=== PATIENT | male | born 1960 | race Caucasian/White ===

== ENCOUNTER 2024-11-14 15:58 | Outpatient (AMB) | payer OTHER, SELFPAY ==
--- NOTE | 2024-11-14 16:19 | A.OFFPC_ITS ---
Vital Signs 11/14/24 16:29 Height 6 ft Weight 201 lb BMI 27.3 BP 120/60 Blood Pressure Location Rt brachial Position Sitting Respiration 14 Pulse 90 Pulse Source Pulse Oximeter Temp 97.0 F Temp Source Oral Pulse Oximetry (%) 97 Oxygen Delivery Method Room Air Intake Visit Reasons: Med review, COPD, DM Intake Note: ESTABLISH CARE med refill Allergies No Known Allergies [No Known Allergies*] Allergy (Verified 11/14/24 16:21) Medication List - Last Reconciled 11/14/24 by Christian Ac MD aripiprazole 15 mg PO DAILY atorvastatin 80 mg PO DAILY bupropion HCl XL 150 mg PO QAM clonazepam mg PO fluoxetine 60 mg PO QAM metformin 1,000 mg PO BID pantoprazole 40 mg PO DAILY Tobacco use date assessed: 11/14/24 Dental Screening Dental Screen Date: 11/14/24 Did you have a dental visit in the last 12 months?: No Did you have a dental problem in the last 6 months where you did not have access to dental care?: No HPI Med review, COPD, DM HPI Details New?patient Prior?PCP: Dr Pappas Last?office?visit/CPE: 18 mos Acute?issue(s): Diabetes -A1c today 11/14/24 11.7%. PMHx: Anxiety. Diabetes w/ Neuropathy & paresthesias, [facility] Neuro at [facility]. Erectile , COPD SurgHx: None FHx: Mom: DM, Pancreatic CA. Dad: DM, CHF. SocHx: Smokes <1ppd. EtOH: 2 Beers a few times a week, Cocaine $600-$2000 a month habbit. PFSH Medical History Depression Anxiety Imbalance Neuropathy Acid reflux Diabetes Hypercholesteremia Family History Mother Diabetes Cancer of kidney Father Diabetes Cardiovascular disease Social History Housing: Other (mobile home) Patient Tobacco Use Status: Current everyday Tobacco user Cigarette Packs Per Day: 1 Years Smoked: 40 e-Cigarette/Vaping Use: Never Used Second Hand Smoke Exposure: No Substance Use Type: Marijuana service: Yes Current occupational status: disabled Cognitive needs: No Hearing needs: No Vision needs: Yes (glasses for close up) Questionnaire PHQ-9 Over the last 2 weeks, how often have you been bothered by any of the following problems? 1. Little interest or pleasure in doing things: several days 2. Feeling down, depressed, or hopeless: several days 3. Trouble falling or staying asleep, or sleeping too much: not at all 4. Feeling tired or having little energy: nearly every day 5. Poor appetite or overeating: not at all 6. Feeling bad about yourself - or that you are a failure or have let yourself or your family down: not at all 7. Trouble concentrating on things, such as reading the newspaper or watching television: not at all 8. Moving or speaking so slowly that other people could have noticed. Or the opposite - being so fidgety or restless that you have been moving around a lot more than usual: not at all 9. Thoughts that you would be better off or of hurting yourself in some way: not at all Total score: 5 Depression Screening Interpretation: Positive Depression Screening Done: Yes 58788 - PHQ-9 Billing: Yes Source: Developed by Drs. Jose Story, Allison Mejia, Antoine Ray and colleagues, with an educational franca from [email or web address]. Thrive Questionnaire Date Thrive assessed: 11/14/24 I am a: Patient What is your living situation today?: I have a place to live, but I am worried about losing it in the future Within the past 12 months, did the food you bought not last and you didn't have the money to get more?: Often true Within the past 12 months, did you worry whether your food would run out before you got money to buy more?: Often true Do you have trouble paying for medicines?: No Do you have trouble getting transportation to medical appointments?: Yes Do you have trouble paying your heating and electricity bill?: Yes Do you have trouble taking care of your child, family member or friend?: No Do you have trouble with day-to-day activities such as bathing, preparing meals, shopping, managing finances, etc.?: Yes Are you currently unemployed and looking for a job?: No Are you interested in more education?: No Please select the resources that you would like help with: None Currently or been in a relationship where the following occur: No concerns reported THRIVE Score: 5 AUDIT C Alcohol Use Questionnaire (AUDIT-C) 1. How often do you have a drink containing alcohol?: 2-3 times a week 2. How many drinks containing alcohol do you have on a typical day when you are drinking?: 1 or 2 3. How often do you have six or more drinks on one occasion?: Less than monthly Total Score: 4 OKSANA-7 AMB Questionnaire OKSANA-7 Date OKSANA - 7 assessed: 11/14/24 Feeling nervous, anxious, or on edge: 2 = More than half the days Not being able to stop or control worryin = Nearly every day Worrying too much about different things: 3 = Nearly every day Trouble relaxin = Several days Being so restless that it is hard to sit still: 1 = Several days Becoming easily annoyed or irritable: 0 = Not at all Feeling afraid as if something awful might happen: 3 = Nearly every day Total OKSANA-7 score (0-4 normal; 5-9 mild; 10-14 moderate; 15-21 severe): 13 Source: Developed by Drs. Jose Story, Allison Mejia, Antoine Ray and colleagues, with an educational franca from [email or web address]. OKSANA-7 Assessment Billing OKSANA-7 Assessment Tool: OKSANA-7 Assessment 59744 Review of Systems Const Denies chills, Denies fatigue, Denies fever(s), Denies headache(s) and Denies weakness ENT Denies dizziness and Denies headache(s) Card Denies chest pain, Denies lightheadedness, Denies dyspnea and Denies other (Palpitations) Resp Denies cough, Denies dyspnea, Denies wheezing and Denies other ( shortness of breath) Musc Denies numbness and Denies tingling Neuro Denies dizziness, Denies headache(s), Denies numbness, Denies tingling, Denies paresthesias and Denies weakness Psych Denies anxiety and Denies depression Endo Denies fatigue Aller/Immun Denies wheezing Physical exam (Primary Care) Vital Signs: Last Vital Signs Temp 97.0 F 11/14/24 16:29 Pulse 90 11/14/24 16:29 Resp 14 11/14/24 16:29 BP 120/60 11/14/24 16:29 Pulse Ox 97 11/14/24 16:29 Oxygen Delivery Method Room Air 11/14/24 16:29 BMI result Body Mass Index 27.3 Tobacco/Smoking Status: Tobacco use Status Tobacco use date assessed 11/14/24 11/14/24 16:33 Patient Tobacco Use Status Current everyday Tobacco 11/14/24 16:33 e-Cigarette/Vaping Use Never Used 11/14/24 16:19 PHQ-9: PHQ-9 Score PHQ-9: Total score 5 11/14/24 16:54 Depression Screening Interpretation: Positive Thrive Assessment: Date of Thrive Assessment Date Thrive assessed 11/14/24 11/14/24 16:33 Currently or been in a relationship where the following occur: No concerns repo rted Const General: no acute distress and well developed Nutritional Appearance: well nourished Orientation/consciousness: patient oriented x3 HENMT Head: Yes normocephalic and Yes atraumatic Eyes General: appearance normal, both eyes and all related structures Pupils: Equal, round and reactive pupils present EOM: EOMs intact bilaterally Resp Effort & Inspection: normal respiratory effort Auscultation: clear to auscultation bilaterally Cardio Rate: regular rate Rhythm: regular rhythm Heart sounds: S1 normal heart sound present, S2 normal heart sound present, no gallops, no murmurs and no rubs Neuro General: patient oriented x3 and gait normal Cranial nerves: Yes Equal, round and reactive pupils present Psych Affect: normal affect Results AMB Hemoglobin A1c AMB Hemoglobin A1c 11.7 % Last Edit by Marlon Miranda CMA on 11/14/24 16:51 Results Reviewed Results Reviewed: Laboratory Last Values Hgb A1c (Clinic) 11.7 % (4.0-6.0) H 11/14/24 16:50 Coding Level of Care Code New Pt Level 5 (09660) Diagnoses Hypercholesteremia E78.00 Diabetes E11.9 Depression with anxiety F41.8 Neuropathy G62.9 Smoker F17.200 COPD (chronic obstructive pulmonary disease) J44.9 Laboratory exam ordered as part of routine general medical examination Z00.00 Substance abuse F19.10 Additional Codes OKSANA-7 Assessment Billing - OKSANA-7 Assessment Tool: OKSANA-7 Assessment 13164 ([id number]) PHQ-9 - 46487 - PHQ-9 Billing: Yes ([id number]) Assessment & Plan Assessment & Plan (1) Hypercholesteremia: Code(s): E78.00 - Pure hypercholesterolemia, unspecified Category: Medical Plan: Patient?is?on?atorvastatin?80?mg?daily Check?lipid (2) Diabetes: Code(s): E11.9 - Type 2 diabetes mellitus without complications Category: Medical Plan: A1c?is?over?11.??Uncontrolled?diabetes.??Goal?is?less?than?7% He?has?not?had?medications?and?will?renew?these ?? (3) Depression with anxiety: Code(s): F41.8 - Other specified anxiety disorders Category: Medical Plan: Patient?says?he?has?a?psych?med?provider?but?has?not?been?in?touch?within?quite? some?time. Will?refill?his?medications?but?I?advi sed?him?to?contact?his?psych?med?provider?to?continue?management?after?that. Patient?understands. (4) Neuropathy: Code(s): G62.9 - Polyneuropathy, unspecified Category: Medical Plan: History?of?uncontrolled?diabetes?and Patient?notes?that?he?has?bilateral?lower?extremity numbness?and?tingling. Likely?primarily?diabetic?neuropathy?but?patient?also?has?MS Will?work?controlling?blood?sugars?to?decrease?symptoms. (5) Smoker: Code(s): F17.200 - Nicotine dependence, unspecified, uncomplicated Category: Social Hx Plan: Patient?is?smoking?just?under?a?pack?per?day. He?has?smoked?greater?than?20?pack?years Strongly?encouraged?weaning?and?cessation Will?send?for?low-dose?CT?scan (6) COPD (chronic obstructive pulmonary disease): Code(s): J44.9 - Chronic obstructive pulmonary disease, unspecified Category: Medical Plan: As?above,?strongly?encouraged?cessation?cigarettes Continue?Anoro?Ellipta (7) Laboratory exam ordered as part of routine general medical examination: Code(s): Z00.00 - Encounter for general adult medical examination without abnormal findings Category: Medical Plan: Check?labs (8) Substance abuse: Code(s): F19.10 - Other psychoactive substance abuse, uncomplicated Category: Medical Plan: Patient?notes?intermittent?cocaine?abuse. We?discussed?the?risks?of?cocaine?use?and?I?recommended?discontinuing?this.??He? said?he?is working?with?[employer]?and?I?encouraged?this Orders: Orders Complete Blood Count Auto Diff Today Z00.00 - Encounter for general adult medical examination without abnormal findings Lipid Panel Today Z00.00 - Encounter for general adult medical examination without abnormal findings TSH reflex Free T4 Today Z00.00 - Encounter for general adult medical examination without abnormal findings AMB Hemoglobin A1c Today E11.9 - Type 2 diabetes mellitus without complications Comprehensive [place]. Panel Fast Today Z00.00 - Encounter for general adult medical examination without abnormal findings Microalbumin, Random (w Creat) Today I10 - Essential (primary) hypertension Prostate Specific Antigen Scr Today Z12.5 - Encounter for screening for malignant neoplasm of prostate UA and rflx microscopic Today Z00.00 - Encounter for general adult medical examination without abnormal findings Referrals Lung Cancer Screening Referral F17.200 - Nicotine dependence, unspecified, uncomplicated Medications: New dulaglutide (Trulicity) 0.75 mg (0.5 mL) subcut QWEEK 28 days 2 mL 3RF bupropion HCl XL 150 mg PO QAM 30 days 30 tabs 0RF umeclidinium-vilanterol 62.5-25 mcg/actuation (Anoro Ellipta) 1 inh inhalation Q24H 30 days 60 ea 2RF Changed From metformin 1,000 mg PO BID To metformin 1,000 mg PO BID 90 days 180 tabs 3RF From clonazepam PO To clonazepam 0.5 mg PO DAILY 30 days 30 tabs 0RF From fluoxetine 60 mg PO QAM To fluoxetine 60 mg (3 x 20 mg) PO QAM 30 days 90 caps 0RF From atorvastatin 80 mg PO DAILY To atorvastatin 80 mg PO DAILY 90 days 90 tabs 2RF From aripiprazole 15 mg PO DAILY To aripiprazole 15 mg PO DAILY 30 days 30 tabs 0RF From pantoprazole 40 mg PO DAILY To pantoprazole 40 mg PO DAILY 30 days 30 tabs 2RF
[2024-11-14 16:29] VITALS: BP 120/60; PULSE 90; RESP 14; TEMP 36.1; O2SAT 97; BMI 27.3
--- OUTSIDE RECORDS SUMMARY | 2024-11-14 18:41 | XMS_ITS ---
Author Name [facility] Organization Unknown History of Medication Use Medication Directions Dispensed Refills Start Date End Date Status clonazePAM (KlonoPIN) 0.25 mg split tablet Take 2 split tablet (0.5 mg total) by mouth 3 (three) times a day as needed for anxiety. 4 active Trulicity 3 MG/0.5ML subcutaneous pen-injector once a week. 4 active acetaminophen (TYLENOL) tablet 975 mg 975 mg, Oral, Once, On Tue02/29/24 at 0800, For 1 doseGive 30 minutes prior to ocrelizumab. 4 completed methylPREDNISolone sodium succinate (SOLU-Medrol) injection 125 mg 125 mg, Intravenous, Once, On Tue02/29/24 at 0800, For 1 doseGive 30 minutes prior to ocrelizumab. ??Administer over 2-3 minutes 4 completed FLUoxetine (PROzac) 20 MG capsule Take 1 capsule (20 mg total) by mouth daily. 4 active Umeclidinium-Vilantero l (Anoro Ellipta) 62.5-25 MCG/INH AEPB Inhale 62 mcg into the lungs daily. 4 active ocrelizumab (OCREVUS) 600 mg in sodium chloride (NS) 0.9 % 500 mL IVPB 600 mg, Intravenous, Once, On Tue02/29/24 at 0800, For 1 doseMust use in-line 0.22 micron filter. ??- Infusion Rate for first full 600 mg dose or reaction with previous infusion: Start at 40 mL/hr. Increase by 40 mL/hr every 30 minutes. Maximum rate: 200 mL/hr. Duration: 3.5 hours or longer.??- Infusi 4 completed ARIPiprazole (ABILIFY) 2 MG tablet Take 1 tablet (2 mg total) by mouth daily. 4 active gabapentin (NEURONTIN) 300 MG capsule Take 1 capsule (300 mg total) by mouth every night at bedtime. 4 active meclizine (ANTIVERT) 12.5 MG tablet Take 1 tablet (12.5 mg total) by mouth daily as needed. 2-3 tabs daily as needed for dizziness 4 active diphenhydrAMINE (BENADRYL) injection 50 mg 50 mg, Intravenous, Once, On Tue02/29/24 at 0800, For 1 doseGive 30 minutes prior to ocrelizumab. IV push over 2-3 minutes.??See PO diphenhydramine order. Please give PO or IV.??Common Side Effects: Drowsiness, stomach upset, confusion, dry mouth.??Administer undiluted. Maximum rate 25 mg/min. 4 completed Ocrelizumab (OCREVUS IV) Inject 600 mg into the vein. 4 active atorvastatin (LIPITOR) tablet 80 mg Take 1 tablet (80 mg total) by mouth daily. 4 active aspirin 81 MG chewable tablet Chew 1 tablet (81 mg total) by mouth daily. 4 active glipiZIDE (GLUCOTROL XL) ER 24 hr tablet 5 mg Take 1 tablet (5 mg total) by mouth daily. 4 active omeprazole (PriLOSEC) 20 MG capsule Take 1 capsule (20 mg total) by mouth daily. 4 active ergocalciferol (VITAMIN D2) capsule 23470 units Take 1 capsule (50,000 Units total) by mouth once a week. 4 active metFORMIN (GLUCOPHAGE) tablet 1000 mg Take 1 tablet (1,000 mg total) by mouth 2 (two) times a day with meals. 4 active Problems Problem Status Onset Date Problem Type Date of Resoluti on Source Type 2 diabetes mellitus active 2021-03-26 ProblemAct [facility] Multiple sclerosis active 2021-03-26 ProblemAct [facility]
== END 2024-11-14 17:21 | disposition home or self-care (01) ==
PROVIDERS: PCP Family Medicine; Visit Provider Family Medicine
DX: E78.00 Pure hypercholesterolemia, unspecified (principal); E11.42 Type 2 diabetes mellitus with diabetic polyneuropathy; J44.9 Chronic obstructive pulmonary disease, unspecified; F19.10 Other psychoactive substance abuse, uncomplicated; F41.8 Other specified anxiety disorders; G62.9 Polyneuropathy, unspecified; F17.200 Nicotine dependence, unspecified, uncomplicated

== ENCOUNTER → 2024-11-14 15:58 | Outpatient (BNVA) | payer OTHER, SELFPAY | PROVIDERS: PCP Family Medicine; Visit Provider Family Medicine | DX: Z00.00 Encounter for general adult medical examination without abnormal findings (principal); J44.9 Chronic obstructive pulmonary disease, unspecified; E11.40 Type 2 diabetes mellitus with diabetic neuropathy, unspecified; F17.210 Nicotine dependence, cigarettes, uncomplicated; E78.00 Pure hypercholesterolemia, unspecified; E11.9 Type 2 diabetes mellitus without complications; F41.8 Other specified anxiety disorders; F19.10 Other psychoactive substance abuse, uncomplicated | CPT/HCPCS: 83036; 96127; 99202 ==

== ENCOUNTER 2024-11-20 10:33 | Outpatient (REF) | payer OTHER, SELFPAY ==
--- OUTSIDE RECORDS SUMMARY | 2024-11-20 11:52 | XMS_ITS | Clinical Summary ---
Author Organization [facility] Address [address] [place] [address] Phone Care Team Providers Care Otologist Name Role Phone Josesito Rodriguez MD Primary Care Provider [phone] Allergies No known active allergies Medications Medication Sig Dispensed Refills Start Date End Date Status ARIPiprazole (ABILIFY) 2 mg tablet Take 1 tablet (2 mg total) by mouth. 04/15/2021 Active aspirin 81 mg chewable tablet Chew 1 tablet (81 mg total). Active atorvastatin (LIPITOR) 80 mg tablet Take 1 tablet (80 mg total) by mouth. Active clonazePAM (KlonoPIN) 0.5 mg tablet Take 1 tablet (0.5 mg total) by mouth 3 times daily as needed. Active dulaglutide (Trulicity) 3 mg/0.5 mL pen injector injection once a week. 08/26/2021 Active ergocalciferol (VITAMIN D-2) 1,250 mcg (50,000 unit) capsule Take 1 capsule (50,000 Units total) by mouth. 07/12/2022 Active FLUoxetine (PROzac) 20 mg capsule Take 1 capsule (20 mg total) by mouth. Active gabapentin (NEURONTIN) 300 mg capsule Take 1 capsule (300 mg total) by mouth. Active glipiZIDE (GLUCOTROL XL) 5 mg 24 hr tablet Take 1 tablet (5 mg total) by mouth. Active meclizine (ANTIVERT) 12.5 mg tablet Take 1 tablet (12.5 mg total) by mouth. Active metFORMIN (GLUCOPHAGE) 1,000 mg tablet Take 1 tablet (1,000 mg total) by mouth. Active omeprazole (PriLOSEC) [address] capsule Take 1 capsule (20 mg total) by mouth. Active umeclidinium-vilantero L (Anoro Ellipta) 62.5-25 mcg/actuation inhaler Inhale 62 mcg. Active sodium chloride 0.9 % parenteral solution 500 mL with ocrelizumab 30 mg/mL solution 600 mg Infuse 600 mg into a venous catheter. Active Active Problems Problem Noted Date Diagnosed Date Multiple sclerosis 03/26/2021 Type 2 diabetes mellitus 03/26/2021 Alcohol abuse 08/15/2007 Tobacco use disorder 03/31/2006 Disturbance of skin sensation 11/30/2005 Pain in limb 11/30/2005 Anxiety state 11/25/2005 Infectious colitis, enteritis and gastroenteriti s 11/25/2005 Overview (10/12/2024): [facility] Depressive disorder 11/25/2005 Hyperlipidemia 11/25/2005 Encounters Date Type Department Care Team Description 10/11/2024 7:54 AM EST - 10/11/2024 11:59 PM EST Hospital Encounter [facility] [address] [phone] Multiple sclerosis ([facility]) (Primary Dx) Discharge Disposition: Home or Self Care 10/02/2024 Telephone [facility] [address] [phone] Mayte Otto PA OCREVUS AUTH RQST; AUTH RECVD from Last 3 Months Immunizations Name Administration Dates Next Due [employer] SARS-CoV-2 COVID -19, vector-nr, [id number], preservative free 02/02/2021 Td, Unspecified 09/01/2005 Medical History Medical History Date Comments MS (multiple sclerosis) ([facility]/HCC) DX:MS (multiple sclerosis) ([facility]) COPD (chronic obstructive pu lmonary disease) (CMS/HCC) DX:COPD (chronic obstructive pulmonary disease) (HCC) Emphysema lung (CMS/HCC) DX:Emph ysema lung (HCC) Diabetes mellitus (CMS/HCC) DX:D iabetes mellitus ([facility]) Depression DX:Depression Anxiety DX:Anxiety Depression DX:Depression Family History Medical History Relation Name Comments Diabetic kidney disease Father Heart disease Father Cancer Mother Diabetic kidney disease Mother Relation Name Status Comments Father Mother Social History Tobacco Use Types Packs/Day Years Used Date Smoking Tobacco: Every Day Cigarettes Smokeless Tobacco: Never Tobacco Cessation:Ready to Q uit: Not Asked; Counseling Given: Not Answered Sex and Gender Information Value Date Recorded Sex Assigned at Not on file Gender Identity Not on file Sexual Orientation Not on file Job Start Date Occupation Industry Not on file Not on file Not on file Obstetrics History Last Filed Vital Signs Vital Sign Reading Time Taken Comments Blood Pressure 139/83 10/11/2024 11:16 AM EST Pulse 81 10/11/2024 11:16 AM EST Temperature 36.3 ??C (97.4 ??F) 10/11/2024 1 1:16 AM EST Respiratory Rate 18 10/11/2024 11:1 6 AM EST Oxygen Saturation 97% 10/11/2024 11: 16 AM EST Inhaled Oxygen Concentration - - Weight 85.2 kg (187 lb 12.8 oz) 02/29/2024 7:49 AM EDT Height 182.9 cm (6') 02/29/2024 7:49 AM EDT Body Mass Index 25.47 02/29/2024 7:49 AM EDT Plan of Treatment Upcoming Encounters Date Type Department Care Team (Late st Contact Info) Description 12/06/2024 8:30 AM EST Office Visit [facility] [place] [address] [address] [facility] [address] [place] [phone] Hermila Quintanilla MD [address] [place] [phone] 04/11/2025 8:00 AM EDT Appointment [facility] [place] [address] [facility] [address] [place] [phone] Health Maintenance Due Date Last Done Comments Pneumococcal Vaccine: Pediatrics (0 to 5 Years) and At-Risk Patients (6 to 64 Years) (1 of 2 - PCV) 1968 Diabetes: Annual Foot Exam 1972 Diabetes: Annual Retina Eye Exam 1972 Hepatitis A Vaccines (1 of 2 - Risk 2-dose series) 1981 Zoster Vaccines (1 of 2) 2012 RSV Immunization Patients 60 + Years Old (1 - Risk 60-74 years 1-dose series) 2022 Cholesterol Screening (Lipid Panel) 10/08/2022 08/15/2007 Depression Screening 10/08/2022 HIV Screening 10/08/2022 Medicare Annual Wellness Visit 10/08/2022 Social Influencers of Health Screening 10/08/2022 Diabetes: Annual Urine Albumin-Creatinine Ratio (uACR) 10/30/2022 Diabetes: Blood Sugar Contro l Test (HGBA1C) 10/30/2022 08/15/2007 Colorectal Cancer Screening: FIT-DNA (Cologuard) 04/01/2024 04/01/2021, 04/01/2021 COVID-19 Vaccine (3 - 2023-2 5 season) 2024 09/28/2021, 02/02/2021 Influenza Vaccine (#1) 2024 Diabetes: Annual GFR (Glomerular Filtration Rate) 10/11/2025 10/11/2024, 08/15/2007 DTaP,Tdap,and Td Vaccines (3 - Td or Tdap) 03/11/2026 03/11/2016, 09/01/2005 Hepatitis C Screening Completed 10/19/2000 HIB Vaccines Aged Out No longer eligi ble based on patient's age to complete this topic HPV Vaccines Aged Out No longer eligi ble based on patient's age to complete this topic Hepatitis B Vaccines Aged Out No long er eligible based on patient's age to complete this topic IPV Vaccines Aged Out No longer eligi ble based on patient's age to complete this topic MMR Vaccines Aged Out No longer eligi ble based on patient's age to complete this topic Meningococcal ACWY Vaccine Aged Out N o longer eligible based on patient's age to complete this topic RSV Immunization Patients Under 20 months Aged Out No longer eligible b ased on patient's age to complete this topic Varicella Vaccines Aged Out No longer eligible based on patient's age to complete this topic Procedures Procedure Name Priority Date/Time Associated Diagnosis Comments CBC WITH AUTO DIFFERENTIAL Routine 10/11/2024 8:08 AM EST CBC AND DIFFERENTIAL Routine 10/11/2024 8:08 AM EST HEPATIC FUNCTION PANEL Routine 10/11/2024 8:08 AM EST CREATININE, SERUM Routine 10/11/2024 8:0 8 AM EST BUN Routine 10/11/2024 8:08 AM EST HEMOGLOBIN A1C Routine 08/15/2007 LIPID PANEL Routine 08/15/2007 HM HEPATITIS C SCREENING Routine 10/19/2000 from Last 3 Months or Most Recently Relevant to Health Maintenance Results * CBC auto differential (10/11/2024 8:08 AM EST) WBC 6.6 4.8 - 10.8 K/mcL LAB HEMETOLOGY METHOD 10/11/2024 9:53 AM [facility] RBC 4.60 4.50 - 5.50 M/mcL LAB HEMETOLOGY METHOD 10/11/2024 9:53 AM [facility] Hemoglobin 14.7 13.5 - 17.5 g/dL LAB HEMETOLOGY METHOD 10/11/2024 9:53 AM [facility] Hematocrit 43.4 42.0 - 54.0 % LAB HEMETOLOGY METHOD 10/11/2024 9:53 AM [facility] MCV 93.5 79.0 - 98.0 FL LAB HEMETOLOGY METHOD 10/11/2024 9:53 AM [facility] MCH 31.7 27.0 - 32.0 pcg LAB HEMETOLOGY METHOD 10/11/2024 9:53 AM [facility] MCHC 33.9 32.0 - 37.0 g/dL LAB HEMETOLOGY METHOD 10/11/2024 9:53 AM [facility] RDW 12.1 11.0 - 15.0 % LAB HEMETOLOGY METHOD 10/11/2024 9:53 AM [facility] Platelets 354 130 - 400 K/mcL LAB HEMETOLOGY METHOD 10/11/2024 9:53 AM [facility] MPV 9.0 7.0 - 11.0 FL LAB HEMETOLOGY METHOD 10/11/2024 9:53 AM [facility] NRBC 0.0 <1.0 % LAB HEMETOLOGY METHOD 10/11/2024 9:53 AM [facility] NRBC Absolute 0.00 <0.10 K/mcL LAB HEMETOLOGY METHOD 10/11/2024 9:53 AM [facility] Neutrophils Relative 69.9 % LAB HEMETOLOGY METHOD 10/11/2024 9:53 AM [facility] Lymphocytes Relative 20.1 % LAB HEMETOLOGY METHOD 10/11/2024 9:53 AM [facility] Monocytes Relative 6.9 % LAB HEMETOLOGY METHOD 10/11/2024 9:53 AM [facility] Eosinophils Relative 2.0 % LAB HEMETOLOGY METHOD 10/11/2024 9:53 AM [facility] Basophils Relative 0.6 % LAB HEMETOLOGY METHOD 10/11/2024 9:53 AM [facility] Immature Granulocytes Relative 0.5 % LAB HEMETOLOGY METHOD 10/11/2024 9:53 AM [facility] Neutrophils Absolute 4.59 1.50 - 7.00 K/mcL LAB HEMETOLOGY METHOD 10/11/2024 9:53 AM [facility] Lymphocytes Absolute 1.32 1.00 - 5.00 K/mcL LAB HEMETOLOGY METHOD 10/11/2024 9:53 AM [facility] Monocytes Absolute 0.45 0.20 - 1.00 K/mcL LAB HEMETOLOGY METHOD 10/11/2024 9:53 AM [facility] Eosinophils Absolute 0.13 0.00 - 0.50 K/mcL LAB HEMETOLOGY METHOD 10/11/2024 9:53 AM EST [facility] Basophils Absolute 0.04 0.00 - 0.20 K/mcL LAB HEMETOLOGY METHOD 10/11/2024 9:53 AM EST [facility] Immature Granulocytes Absolute 0.03 0.00 - 0.03 K/[facility] LAB HEMETOLOGY METHOD 10/11/2024 9:53 AM EST [facility] Blood Venous blood specimen / Unknown Venipuncture / Unknown 10/11/2024 8:08 AM EST 10/11/2024 8:08 AM EST Mayte Tuckeri PA LAB BLOOD ORDERABLES Performing Organization Address [facility]/ZIP Co de Phone Number [facility] [address] [place] [address], * Creatinine (10/11/2024 8:08 AM EST) Creatinine 1.04 0.70 - 1.30 mg/dL LAB CHEMISTRY METHOD 10/11/2024 10:23 AM EST [facility] eGFR 81 >=60 mL/min/1. 73m2 LAB CHEMISTRY METHOD 10/11/2024 10:23 AM EST [facility] Comment:Calculation based on the??Chronic Kidney Disease Epidemiology Collaboration (CKD-EPI) equation refit??without adjustment for race. Blood Venous blood specimen / Unknown Venipuncture / Unknown 10/11/2024 8:08 AM EST 10/11/2024 8:08 AM EST Mayte L Panasci PA LAB BLOOD ORDERABLES [facility] [address] [place] [address], * BUN (10/11/2024 8:08 AM EST) BUN 14 5 - 25 mg/dL LAB CHEMISTRY METHOD 10/11/2024 10:23 AM [facility] Blood Venous blood specimen / Unknown Venipuncture / Unknown 10/11/2024 8:08 AM EST 10/11/2024 8:08 AM EST Mayte PAT LAB BLOOD ORDERABLES [facility] [address] [place] [address], * (ABNORMAL) Hepatic function panel (10/11/2024 8:08 AM EST) Pathologist [facility] Total Protein 7.1 6.0 - 8.0 g/dL LAB CHEMISTRY METHOD 10/11/2024 10:23 AM [facility] Albumin 3.7 3.2 - 5.0 g/dL LAB CHEMISTRY METHOD 10/11/2024 10:23 AM [facility] Total Bilirubin 0.2 0.0 - 1.4 mg/dL LAB CHEMISTRY METHOD 10/11/2024 10:23 AM [facility] Bilirubin, Direct <0.1 0.0 - 0.3 mg/dL LAB CHEMISTRY METHOD 10/11/2024 10:23 AM [facility] Bilirubin, Indirect LAB CHEMISTRY METHOD 10/11/2024 10:23 AM [facility] Comment:Unable to calculate Indirect Bilirubin. ALT (SGPT) 24 10 - 60 unit/L LAB CHEMISTRY METHOD 10/11/2024 10:23 AM [facility] AST (SGOT) 12 10 - 42 unit/L LAB CHEMISTRY METHOD 10/11/2024 10:23 AM [facility] Alkaline Phosphatase 130(H) 42 - 121 unit/L LAB CHEMISTRY METHOD 10/11/2024 10:23 AM [facility] Blood Venous blood specimen / Unknown Venipuncture / Unknown 10/11/2024 8:08 AM EST 10/11/2024 8:08 AM EST Mayte PAT LAB BLOOD ORDERABLES [facility] [address] [place] [address], * (ABNORMAL) Hemoglobin A1c (08/15/2007) Hemoglobin A1C 6.1(A) 4.0 - 6.0 % Blood Venous blood specimen / Unknown Historical Provider LAB BLOOD ORDERAB LES * (ABNORMAL) Lipid panel (08/15/2007) LDL/HDL Ratio 6(A) 0 - 4 Triglycerides 311(A) 0 - 150 mg/dL Cholesterol 214(A) 0 - 200 mg/dL HDL 36(A) 40 mg/dL LDL Cholesterol 116(A) 0 - 100 mg/dL Blood Venous blood specimen / Unknown Historical Provider LAB BLOOD ORDERAB LES * Hepatitis C Screening (10/19/2000) Pathologist [facility] Hepatitis C Screening abstracted Historical Provider [facility] from Last 3 Months or Most Recently Relevant to Health Maintenance Care Teams Otologist Relationship Specialty Start Date End Date Josesito Rodriguez MD [address] [place] [address] PCP - General Internal Medicine 01/28/21
--- OUTSIDE RECORDS SUMMARY | 2024-11-20 11:52 | XMS_ITS | Clinical Summary ---
Author Organization [facility] Address [address] [place] [address] Care Team Providers Care Rn New Grad Name Role Phone Josesito Rodriguez MD Primary Care Provider [phone] Allergies No known active allergies Medications Medication Sig Dispensed Refills Start Date End Date Status gabapentin (NEURONTIN) 300 MG capsule Take 1 capsule (300 mg total) by mouth every night at bedtime. 0 Active metFORMIN (GLUCOPHAGE) tablet 1000 mg Take 1 tablet (1,000 mg total) by mouth 2 (two) times a day with meals. 0 Active omeprazole (PriLOSEC) 20 MG capsule Take 1 capsule (20 mg total) by mouth daily. 0 Active glipiZIDE (GLUCOTROL XL) ER 24 hr tablet 5 mg Take 1 tablet (5 mg total) by mouth daily. 0 Active atorvastatin (LIPITOR) tablet 80 mg Take 1 tablet (80 mg total) by mouth daily. 0 Active meclizine (ANTIVERT) 12.5 MG tablet Take 1 tablet (12.5 mg total) by mouth daily as needed. 2-3 tabs daily as needed for dizziness 0 Active clonazePAM (KlonoPIN) 0.25 mg split tablet Take 2 split tablet (0.5 mg total) by mouth 3 (three) times a day as needed for anxiety. 0 Active FLUoxetine (PROzac) 20 MG capsule Take 1 capsule (20 mg total) by mouth daily. 0 Active aspirin 81 MG chewable tablet Chew 1 tablet (81 mg total) by mouth daily. 0 Active Umeclidinium-Vilanter ol (Anoro Ellipta) 62.5-25 MCG/INH AEPB Inhale 62 mcg into the lungs daily. 0 Active Ocrelizumab (OCREVUS IV) Inject 600 mg into the vein. 0 Active ARIPiprazole (ABILIFY) 2 MG tablet Take 1 tablet (2 mg total) by mouth daily. 0 04/15/2021 Active Trulicity 3 MG/0.5ML subcutaneous pen-injector once a week. 0 08/26/2021 Active ergocalciferol (VITAMIN D2) capsule 77869 units Take 1 capsule (50,000 Units total) by mouth once a week. 4 capsule 12 10/20/2023 Active Active Problems Problem Noted Date Diagnosed Date Multiple sclerosis 03/26/2021 Type 2 diabetes mellitus 03/26/2021 Family History Medical History Relation Name Comments Diabetic kidney disease Father Heart disease Father Cancer Mother Diabetic kidney disease Mother Relation Name Status Comments Father Mother Social History Tobacco Use Types Packs/Day Years Used Date Smoking Tobacco: Every Day Cigarettes 0.5 Smokeless Tobacco: Never Tobacco Cessation:Ready to Q uit: Not Asked; Counseling Given: Not Answered Sex and Gender Information Value Date Recorded Sex Assigned at Not on file Gender Identity Male 01/28/2021 11:06 AM EDT Sexual Orientation Not on file Job Start Date Occupation Industry Not on file Not on file Not on file Last Filed Vital Signs Vital Sign Reading Time Taken Comments Blood Pressure 128/78 02/29/2024 11:18 AM EDT Pulse 79 02/29/2024 11:18 AM EDT Temperature 36.1 ??C (97 ??F) 02/29/2024 11: 18 AM EDT Respiratory Rate 18 02/29/2024 11:1 8 AM EDT Oxygen Saturation 96% 02/29/2024 11: 18 AM EDT Inhaled Oxygen Concentration - - Weight 85.2 kg (187 lb 12.8 oz) 02/29/2024 7:49 AM EDT Height 182.9 cm (6') 02/29/2024 7:49 AM EDT Body Mass Index 25.47 02/29/2024 7:49 AM EDT Plan of Treatment Health Maintenance Due Date Last Done Comments Hepatitis C Screening 1962 Pneumococcal Vaccine (1 of 2 - PCV) 1968 Depression Screening 1974 BMI Counseling 1980 Preventative Health Evaluation 1980 Tobacco Cessation Counseling 1980 Colon Cancer Screening (Colonoscopy) 2007 Shingrix-Zoster Vaccine (1 o f 2) 2012 COVID-19 Vaccine (3 - 2023-2 5 season) 2024 09/28/2021, 02/02/2021 Influenza Vaccine (#1) 2024 DTap / Tdap / Td (2 - Td or Tdap) 03/11/2026 03/11/2016, 09/01/2005 RSV Adult > 60+ Yrs or (1 - 1-dose 75+ series) 2037 Hepatitis B Vaccines Aged Out No long er eligible based on patient's age to complete this topic RSV Ped < 20 months Aged Out No longe r eligible based on patient's age to complete this topic Care Teams Rn New Grad Relationship Specialty Start Date End Date Josesito Rodriguez MD PCP - General Internal Medicine 01/28/21
[2024-11-20 14:43] LABS: Appearance Urine Clear; Color Urine Yellow; Glucose Urine UA >=1000 mg/dL (Negative); Leukocyte Esterase Urine Negative (Negative); Nitrite Urine Negative (Negative); Specific Gravity - Urine >= 1.030 (1.005-1.025); UMIC TRIGGER UA YES; Urine Blood Negative (Negative); Urine Ketones Trace mg/dL (Negative); Urine Protein Negative (Neg-Trace)
[2024-11-20 14:44] LABS: MANUAL DIFF FLAG NO
[2024-11-20 14:55] LABS: Basophils Percent Auto 0.4 % (0-2); Eosinophils Absolute Auto 0.1 X10*3/uL (0.0-0.4); Eosinophils Percent Auto 1.2 % (0-4); Hematocrit 43.8 % (42.0-52.0); Hemoglobin 15.3 g/dl (14.0-18.0); Imm Gran Abs Auto 0.05 X10*3/uL (0.00-0.03); Imm Gran Pct Auto 0.6 % (0.0-0.4); Lymphocytes Absolute Auto 1.6 X10*3/uL (1.2-4.9); Lymphocytes Percent Auto 17.9 % (20-40); Mean Corpuscular HGB Conc 34.9 g/dl (31.0-36.0); Mean Corpuscular Hemoglobin 31.7 pg (27.0-33.0); Mean Corpuscular Volume 90.7 fL (80.0-98.0); Mean Platelet Volume 8.9 fL (9.4-12.4); Monocytes Absolute Auto 0.6 X10*3/uL (0.1-1.2); Monocytes Percent Auto 6.5 % (2-11); Neutrophils Absolute Auto 6.6 x10*3/uL (2.0-8.3); Neutrophils Percent Auto 73.4 % (45-73); Platelet Count 365 X10*3/uL (160-400); Red Blood Count 4.83 X10*6/uL (4.60-5.80); Red Cell Distribution Width 12.4 % (11.0-16.0)
[2024-11-20 15:01] LABS: Bacteria Urine None Seen (None Seen); Hyaline Casts Urine 0-2 /LPF (0-2); RBC Urine 0-2 /HPF (0-2); Squamous Epithelial Cell Urine 0-2 /HPF (0-2); WBC Urine 0-5 /HPF (0-5)
[2024-11-20 15:15] LABS: Alanine Aminotransferase 15 U/L (0-40); Albumin Level 4.1 g/dL (3.5-5.0); Alkaline Phosphatase 140 U/L (39-117); Anion Gap 11 (12-20); Aspartate Amino Transferase 15 U/L (5-37); Bilirubin Total 0.4 mg/dL (0.0-1.0); Blood Urea Nitrogen 13 mg/dL (9-16); Calcium 8.8 mg/dL (8.4-10.2); Carbon Dioxide 26 mmol/L (22-29); Chloride 101 mmol/L (96-108); Cholesterol 161 mg/dL (<200); Estimated Glomerular Filt Rate > 60; Glucose Fasting 243 mg/dL (60-99); HDL Cholesterol 52 mg/dL (>40); LDL Cholesterol Calculated 91 mg/dL (<100); Potassium 4.1 mmol/L (3.3-5.1); Sodium 134 mmol/L (135-145); Total Protein 7.4 g/dL (6.5-8.0); Triglycerides 92 mg/dL (<150)
[2024-11-20 15:23] LABS: Prostate Specific Antigen Scr 1.54 ng/mL (<0.05-4.0)
[2024-11-20 15:25] LABS: Creatinine Urine 66.14 mg/dL; Microalbum/Creatinine Ratio Ur 39.3 ug/mg cr (<30)
[2024-11-20 15:30] LABS: TSH reflex Free T4 1.88 uIU/mL (0.32-4.0)
== END 2024-11-20 10:34 | disposition home or self-care (01) ==
LOC: HO.WFDLDS 10:33
PROVIDERS: Visit Provider Family Medicine
DX: Z00.00 Encounter for general adult medical examination without abnormal findings (principal); I10 Essential (primary) hypertension; Z12.5 Encounter for screening for malignant neoplasm of prostate
CPT/HCPCS: 36415; 80053; 80061; 81001; 82043; 82570; 84153; 84443; 85025

== ENCOUNTER 2024-12-14 11:36 | Outpatient (AMB) | payer OTHER, SELFPAY ==
--- NOTE | 2024-12-14 11:47 | MHC.PC.OV ---
Vital Signs 12/14/24 11:50 Height 6 ft Weight 199 lb 6 oz BMI 27.0 BP 118/64 Blood Pressure Location Rt brachial Position Sitting Respiration 18 Pulse 104 H Pulse Source Pulse Oximeter Temp 97.4 F Temp Source Oral Pulse Oximetry (%) 98 Oxygen Delivery Method Room Air Intake Visit Reasons: Right foot issues Intake Note: Right foot pain and sore. Been worse the past week. Infectious Disease Physician Required: No Allergies No Known Allergies [No Known Allergies*] Allergy (Verified 12/14/24 11:49) Medication List - Last Reconciled 12/16/24 by Nini Duenas MD aripiprazole 15 mg PO DAILY 30 days atorvastatin 80 mg PO DAILY 90 days bupropion HCl XL 150 mg PO QAM 30 days cephalexin 500 mg PO QID clonazepam 0.5 mg PO DAILY 30 days dulaglutide (Trulicity) 0.75 mg (0.5 mL) subcut QWEEK 28 days fluoxetine 60 mg (3 x 20 mg) PO QAM 30 days metformin 1,000 mg PO BID 90 days pantoprazole 40 mg PO DAILY 30 days umeclidinium-vilanterol 62.5-25 mcg/actuation (Anoro Ellipta) 1 inh inhalation Q24H 30 days Tobacco use date assessed: 11/14/24 Dental Screening Dental Screen Date: 11/14/24 HPI HPI Comments History of Present Illness Details 64 y/o male with past medical history of anxiety, diabetes w/ neuropathy & paresthesias, MS Neuro at [facility], presenting for right foot pain Patient has chronic bilateral foot pain. Tells me that he has had stable ulcer of the top 2nd right toe for the past few months. Wound care came to his house last night and recommended ER evaluation-he went to the ER waited ~2 hours did not get evaluated and left. Patient says there has been more swelling and perhaps redness of the right foot and toes but overall the ulcer has been stable for a few months. Denies fevers, denies shortness of breath. Denies increased foot pain Last A1C 11.7% 11/14/2024 SocHx: Smokes <1ppd. EtOH: 2 Beers a few times a week, Cocaine $600-$2000 a month habit ROS CONSTITUTIONAL: Denies weight loss, fever and chills. HEENT: Denies changes in vision and hearing. RESPIRATORY: Denies SOB and cough. CV: Denies palpitations and CP GI: Denies abdominal pain, nausea, vomiting and diarrhea. : Denies dysuria and urinary frequency. MSK: Denies new myalgia and joint pain. SKIN: Denies rash and pruritus. NEUROLOGICAL: Denies headache PSYCHIATRIC: Denies recent changes in mood. PHYSICAL EXAM: GENERAL: Alert and oriented x 3. NAD EYES: EOMI. Anicteric. HENT: Moist mucous membranes. No scleral icterus. No cervical lymphadenopathy. LUNGS: Clear to auscultation bilaterally. CARDIOVASCULAR: Regular rate and rhythm. No murmur. No JVD. ABDOMEN: Soft, non-tender +bs EXTREMITIES: No edema. Non-tender. SKIN: No rashes or lesions. Warm. NEUROLOGIC: No focal neurological deficits. CN II-XII grossly intact PSYCHIATRIC: Cooperative. Appropriate mood and affect [facility] Medical History Depression with anxiety Diabetes Hypercholesteremia COPD (chronic obstructive pulmonary disease) Nicotine dependence, cigarettes, uncomplicated Imbalance Neuropathy Acid reflux Family History Mother Diabetes Cancer of kidney Father Diabetes Cardiovascular disease Social History Housing: Other (mobile home) Alcohol intake: current Patient Tobacco Use Status: Current everyday Tobacco user Cigarette Packs Per Day: 1 Years Smoked: 40 e-Cigarette/Vaping Use: Never Used Second Hand Smoke Exposure: No Substance Use Type: Marijuana service: Yes Current occupational status: disabled Cognitive needs: No Hearing needs: No Vision needs: Yes (glasses for close up) Questionnaire PHQ-9 Over the last 2 weeks, how often have you been bothered by any of the following problems? 1. Little interest or pleasure in doing things: several days 2. Feeling down, depressed, or hopeless: several days 3. Trouble falling or staying asleep, or sleeping too much: several days 4. Feeling tired or having little energy: several days 5. Poor appetite or overeating: more than half the days 6. Feeling bad about yourself - or that you are a failure or have let yourself or your family down: several days 7. Trouble concentrating on things, such as reading the newspaper or watching television: several days 8. Moving or speaking so slowly that other people could have noticed. Or the opposite - being so fidgety or restless that you have been moving around a lot more than usual: several days 9. Thoughts that you would be better off or of hurting yourself in some way: not at all Total score: 9 Depression Screening Interpretation: Positive Depression Screening Follow-up: Existing condition Depression Screening Done: Yes 39916 - PHQ-9 Billing: Yes Source: Developed by Drs. Jose Story, Allison Mejia, Antoine Ray and colleagues, with an educational franca from [employer]. Thrive Questionnaire Date Thrive assessed: 11/14/24 I am a: Patient What is your living situation today?: I have a steady place to live Within the past 12 months, did the food you bought not last and you didn't have the money to get more?: Sometimes True Within the past 12 months, did you worry whether your food would run out before you got money to buy more?: Sometimes True Do you have trouble paying for medicines?: No Do you have trouble getting transportation to medical appointments?: Yes Do you have trouble paying your heating and electricity bill?: Yes Do you have trouble taking care of your child, family member or friend?: I choose not to answer this question Do you have trouble with day-to-day activities such as bathing, preparing meals, shopping, managing finances, etc.?: Yes Are you currently unemployed and looking for a job?: No Are you interested in more education?: No Please select the resources that you would like help with: Utilities Currently or been in a relationship where the following occur: I choose not to answer THRIVE Score: 4 AUDIT C Alcohol Use Questionnaire (AUDIT-C) 1. How often do you have a drink containing alcohol?: 2-3 times a week 2. How many drinks containing alcohol do you have on a typical day when you are drinking?: 5 or 6 3. How often do you have six or more drinks on one occasion?: Less than monthly Total Score: 6 OKSANA-7 AMB Questionnaire OKSANA-7 Date OKSANA - 7 assessed: 11/14/24 Feeling nervous, anxious, or on edge: 3 = Nearly every day Not being able to stop or control worryin = Nearly every day Worrying too much about different things: 2 = More than half the days Trouble relaxin = More than half the days Being so restless that it is hard to sit still: 3 = Nearly every day Becoming easily annoyed or irritable: 3 = Nearly every day Feeling afraid as if something awful might happen: 3 = Nearly every day Total OKSANA-7 score (0-4 normal; 5-9 mild; 10-14 moderate; 15-21 severe): 19 Source: Developed by Drs. Jose Story, Allison Mejia, Antoine Ray and colleagues, with an educational franca from [employer]. OKSANA-7 Assessment Billing OKSANA-7 Assessment Tool: OKSANA-7 Assessment 06798 Physical exam (Primary Care) Vital Signs: Last Vital Signs Temp 97.4 F 12/14/24 11:50 Pulse 104 H 12/14/24 11:50 Resp 18 12/14/24 11:50 BP 118/64 12/14/24 11:50 Pulse Ox 98 12/14/24 11:50 Oxygen Delivery Method Room Air 12/14/24 11:50 BMI result Body Mass Index 27.0 Tobacco/Smoking Status: Tobacco use Status Tobacco use date assessed 11/14/24 12/14/24 11:54 Patient Tobacco Use Status Current everyday Tobacco 12/14/24 11:54 e-Cigarette/Vaping Use Never Used 12/14/24 11:54 PHQ-9: PHQ-9 Score PHQ-9: Total score 9 12/16/24 12:37 Depression Screening Interpretation: Positive Depression Screening Follow-up: Existing condition Thrive Assessment: Date of Thrive Assessment Date Thrive assessed 11/14/24 12/14/24 11:54 Currently or been in a relationship where the following occur: I choose not to answer Coding Level of Care Code Est Pt Level 4 (83691) Diagnoses Ulcer of right foot with fat layer exposed L97.512 Laterality: right Non-pressure ulcer stage: with fat layer exposed Additional Codes OKSANA-7 Assessment Billing - OKSANA-7 Assessment Tool: OKSANA-7 Assessment 38059 ([id number]) PHQ-9 - 77387 - PHQ-9 Billing: Yes ([id number]) Assessment & Plan Assessment & Plan (1) Foot ulcer: Code(s): L97.509 - Non-pressure chronic ulcer of other part of unspecified foot with unspecified severity Category: Medical Qualifiers: Laterality: right Non-pressure ulcer stage: with fat layer exposed Qualified Code(s): L97.512 - Non-pressure chronic ulcer of other part of right foot with fat layer exposed Plan: Right second toe ulcer with possible overlying cellulitis. Start keflex. Wound care establish at home. Haven't started b/c sent to ER where he left prior to evaluation. Advised if foot pain develops, redness or swelling worsens or fevers occurs to go to ER. Antibiotic sent Medications: New cephalexin 500 mg PO QID 40 caps 0RF
[2024-12-14 11:50] VITALS: BP 118/64; PULSE 104; RESP 18; TEMP 36.3; O2SAT 98; BMI 27.0
--- OUTSIDE RECORDS SUMMARY | 2024-12-14 12:21 | XMS_ITS | Clinical Summary ---
Author Organization [facility] Address [address] [place] [address] Care Team Providers Care Associate Professor Plant Pathology Name Role Phone Josesito Rodriguez MD Primary Care Provider [phone] Allergies No known active allergies Medications Medication [...] 0 08/26/2021 Active ergocalciferol (VITAMIN D2) capsule 08288 units Take 1 capsule (50,000 Units total) [...] age to complete this topic Care Teams Associate Professor Plant Pathology Relationship Specialty Start Date End Date Josesito Rodriguez MD PCP - General Internal Medicine 01/28/21
--- OUTSIDE RECORDS SUMMARY | 2024-12-14 12:21 | XMS_ITS | Clinical Summary ---
Author Organization [address] [facility] Address [address] [place] [address] Phone Care Team Providers Care Duplicating Machine Servicer Name Role Phone Josesito Rodriguez MD Primary Care Provider [phone] Allergies No known active allergies Medications ARIPiprazole (ABILIFY) 2 mg tablet Take 1 [...] capsule (20 mg total) by mouth. Active umeclidinium-adriana anteroL (Anoro Ellipta) 62.5-25 mcg/actuation inhaler Inhale 62 [...] - 10/11/2024 11:59 PM EST Hospital Encounter [facility] [address] [phone] Multiple sclerosis ([facility]) (Primary Dx) Discharge Disposition: Home or Self Care 10/02/2024 Telephone [facility] [address] [phone] Mayte Otto PA [employer] AUTH RQST; AUTH RECVD from Last 3 Months Immunizations Name Administration Dates Next Due [employer] SARS-CoV-2 COVID -19, vector-nr, rS-Ad26, preservative free 02/02/2021 Td, Unspecified 09/01/2005 Medical History Medical History Date Comments MS (multiple sclerosis) (CMS/HCC) DX:MS (multiple sclerosis) (HCC) COPD (chronic obstructive pu lmonary disease) (CMS/HCC) DX:COPD (chronic obstructive pulmonary disease) (HCC) Emphysema lung (CMS/HCC) DX:Emph ysema lung (HCC) Diabetes mellitus (CMS/HCC) DX:D iabetes mellitus (HCC) Depression DX:Depression Anxiety DX:Anxiety Depression DX:Depression Family [...] Recorded Sex Assigned at Not on file Legal Sex Male 10:27 PM EST Gender Identity Not on file Sexual Orientation Not on file Obstetrics History Last Filed [...] Care Team (Late st Contact Info) Description 01/23/2025 8:00 AM EDT Office Visit [facility] [place] [address] [place] [phone] Hermila Quintanilla MD [address] [place] [phone] 04/11/2025 8:00 AM EDT Appointment [facility] - [place] [address] [place] [phone] Health Maintenance Due Date Last Done Comments Diabetes: Annual Foot Exam 1972 Diabetes: Annual Retina Eye Exam 1972 Hepatitis A Vaccines (1 of 2 - Risk 2-dose series) 1981 Pneumococcal Vaccine: 50+ Years (1 of 2 - PCV) 1981 Pneumococcal Vaccine: Pediatrics (0 to 5 Years) and At-Risk Patients (6 to 64 Years) (1 of 2 - PCV) 1981 Zoster Vaccines (1 of 2) 2012 [...] patient's age to complete this topic Meningococcal B Vacine Aged Out No lo nger eligible based on patient's age to complete [...] K/mcL LAB HEMETOLOGY METHOD 10/11/2024 9:[address] [facility] RBC 4.60 4.50 - 5.50 M/mcL LAB HEMETOLOGY METHOD 10/11/2024 9:[address] [facility] Hemoglobin 14.7 13.5 - 17.5 g/dL LAB HEMETOLOGY METHOD 10/11/2024 9:[address] [facility] Hematocrit 43.4 42.0 - 54.0 % LAB HEMETOLOGY METHOD 10/11/2024 9:[address] [facility] MCV 93.5 79.0 - 98.0 FL LAB HEMETOLOGY METHOD 10/11/2024 9:[address] [facility] MCH 31.7 27.0 - 32.0 pcg LAB HEMETOLOGY METHOD 10/11/2024 9:[address] [facility] MCHC 33.9 32.0 - 37.0 g/dL LAB HEMETOLOGY METHOD 10/11/2024 9:[address] [facility] RDW 12.1 11.0 - 15.0 % LAB HEMETOLOGY METHOD 10/11/2024 9:[address] [facility] Platelets 354 130 - 400 K/mcL LAB HEMETOLOGY METHOD 10/11/2024 9:[address] [facility] MPV 9.0 7.0 - 11.0 FL LAB HEMETOLOGY METHOD 10/11/2024 9:[address] [facility] NRBC 0.0 <1.0 % LAB HEMETOLOGY METHOD 10/11/2024 9:[address] [facility] NRBC Absolute 0.00 <0.10 K/mcL LAB HEMETOLOGY METHOD 10/11/2024 9:[address] [facility] Neutrophils Relative 69.9 % LAB HEMETOLOGY METHOD 10/11/2024 9:[address] [facility] Lymphocytes Relative 20.1 % LAB HEMETOLOGY METHOD 10/11/2024 9:[address] [facility] Monocytes Relative 6.9 % LAB HEMETOLOGY METHOD 10/11/2024 9:[address] [facility] Eosinophils Relative 2.0 % LAB HEMETOLOGY METHOD 10/11/2024 9:[address] [facility] Basophils Relative 0.6 % LAB HEMETOLOGY METHOD 10/11/2024 9:[address] [facility] Immature Granulocytes Relative 0.5 % LAB HEMETOLOGY METHOD 10/11/2024 9:[address] [facility] Neutrophils Absolute 4.59 1.50 - 7.00 K/mcL LAB HEMETOLOGY METHOD 10/11/2024 9:[address] [facility] Lymphocytes Absolute 1.32 1.00 - 5.00 K/mcL LAB HEMETOLOGY METHOD 10/11/2024 9:[address] [facility] Monocytes Absolute 0.45 0.20 - 1.00 K/mcL LAB HEMETOLOGY METHOD 10/11/2024 9:53 AM EST [facility] Eosinophils Absolute 0.13 0.00 - 0.50 K/mcL LAB HEMETOLOGY METHOD 10/11/2024 9:53 AM EST [facility] Basophils Absolute 0.04 0.00 - 0.20 K/mcL LAB HEMETOLOGY METHOD 10/11/2024 9:53 AM EST [facility] Immature Granulocytes Absolute 0.03 0.00 - 0.03 K/mcL LAB HEMETOLOGY METHOD 10/11/2024 9:53 AM EST [facility] Blood Venous blood specimen / Unknown Venipuncture / Unknown 10/11/2024 8:08 AM EST 10/11/2024 8:08 AM EST Maytejuan Otto [employer] LAB BLOOD ORDERABLES Final R esult [facility] [address] [place] [address], * Creatinine (10/11/2024 8:08 AM EST) Creatinine 1.04 0.70 - 1.30 mg/dL LAB CHEMISTRY METHOD 10/11/2024 10:23 AM EST [facility] eGFR 81 >=60 mL/min/1. 73m2 LAB CHEMISTRY METHOD 10/11/2024 10:23 AM EST [facility] Comment:Calculation based on the??Chronic Kidney Disease Epidemiology Collaboration (CKD-EPI) equation refit??without adjustment for race. Blood Venous blood specimen / Unknown Venipuncture / Unknown 10/11/2024 8:08 AM EST 10/11/2024 8:08 AM EST Maytejuan Tuckeri PA LAB BLOOD ORDERABLES Final R esult [facility] [address] [place] [address], [place] [phone] * BUN (10/11/2024 8:08 AM EST) [facility] BUN 14 5 - 25 mg/dL LAB CHEMISTRY METHOD 10/11/2024 10:23 AM EST [facility] Blood Venous blood specimen / Unknown Venipuncture / Unknown 10/11/2024 8:08 AM EST 10/11/2024 8:08 AM EST Mayte PAT LAB BLOOD ORDERABLES Final R esult Performing Organization Address [facility]/ZIP Co de Phone Number [facility] [address] [place] [address], * (ABNORMAL) Hepatic function panel (10/11/2024 8:08 AM EST) [facility] Total Protein 7.1 6.0 - 8.0 g/dL LAB CHEMISTRY METHOD 10/11/2024 10:[address] [facility] Albumin 3.7 3.2 - 5.0 g/dL LAB CHEMISTRY METHOD 10/11/2024 10:[address] [facility] Total Bilirubin 0.2 0.0 - 1.4 mg/dL LAB CHEMISTRY METHOD 10/11/2024 10:[address] [facility] Bilirubin, Direct <0.1 0.0 - 0.3 mg/dL LAB CHEMISTRY METHOD 10/11/2024 10:[address] [facility] Bilirubin, Indirect LAB CHEMISTRY METHOD 10/11/2024 10:[address] [facility] Comment:Unable to calculate Indirect Bilirubin. ALT (SGPT) 24 10 - 60 unit/L LAB CHEMISTRY METHOD 10/11/2024 10:[address] [facility] AST (SGOT) 12 10 - 42 unit/L LAB CHEMISTRY METHOD 10/11/2024 10:23 AM EST [facility] Alkaline Phosphatase 130(H) 42 - 121 unit/L LAB CHEMISTRY METHOD 10/11/2024 10:23 AM EST [facility] Blood Venous blood specimen / Unknown Venipuncture / Unknown 10/11/2024 8:08 AM EST 10/11/2024 8:08 AM EST Mayte PAT LAB BLOOD ORDERABLES Final R esult [facility] [address] [place] [address], * (ABNORMAL) Hemoglobin A1c (08/15/2007) Pathologist [facility] Hemoglobin A1C 6.1(A) 4.0 - 6.0 % Blood Venous blood specimen / Unknown Result [facility] Historical Provider LAB BLOOD ORDERABLES Nelly l Result * (ABNORMAL) Lipid panel (08/15/2007) Pathologist [facility] LDL/HDL Ratio 6(A) 0 - 4 Triglycerides 311(A) 0 - 150 mg/dL Cholesterol 214(A) 0 - 200 mg/dL HDL 36(A) >=40 mg/dL LDL Cholesterol 116(A) 0 - 100 mg/dL Blood Venous blood specimen / Unknown Result [facility] Historical Provider LAB BLOOD ORDERABLES Nelly l Result * Hepatitis C Screening (10/19/2000) Pathologist [facility] Hepatitis C Screening abstracted Result [facility] Historical Provider HEALTH MAINTENANCE Final Result from Last 3 Months or Most Recently Relevant to Health Maintenance Insurance [facility] MEDICARE Member Subscriber Plan / Payer (Ef fective 2024-Present) Name:Tristan Au Relation to Subscriber:Self Name:Tristan Au Payer ID:[id number] Group ID:[id number] Type:Not on file Address: [place] [address] [place] [phone] Care Teams Duplicating Machine Servicer Relationship Specialty Start Date End Date Josesito Rodriguez MD [address] [place] [address] PCP - General Internal Medicine 01/28/21
== END 2024-12-14 13:07 | disposition home or self-care (01) ==
PROVIDERS: PCP Family Medicine; Visit Provider Internal Medicine
DX: L97.512 Non-pressure chronic ulcer of other part of right foot with fat layer exposed (principal)

== ENCOUNTER → 2024-12-14 11:36 | Outpatient (BNVA) | payer OTHER, SELFPAY | PROVIDERS: PCP Family Medicine; Visit Provider Internal Medicine | DX: E11.621 Type 2 diabetes mellitus with foot ulcer (principal); L97.512 Non-pressure chronic ulcer of other part of right foot with fat layer exposed; E11.40 Type 2 diabetes mellitus with diabetic neuropathy, unspecified | CPT/HCPCS: 96127; 99212 ==

== ENCOUNTER 2025-01-04 08:34 | Outpatient (REF) | payer OTHER, SELFPAY ==
--- OUTSIDE RECORDS SUMMARY | 2025-01-04 09:06 | XMS_ITS | Clinical Summary ---
Author Organization [address] [facility] Address [address] [place] [address] Phone Care Team Providers Care Dental Intern Name Role Phone Josesito Rodriguez MD Primary Care Provider [phone]- [phone] Allergies No known active allergies Medications ARIPiprazole [...] 10/11/2024 11:59 PM EST Hospital Encounter [facility] [address] [address] Multiple sclerosis ([facility]) (Primary Dx) Discharge Disposition: Home or Self Care from Last 3 Months Immunizations Name Administration Dates Next Due [employer] SARS-CoV-2 COVID -19, vector-nr, rS-Ad26, preservative free 02/02/2021 Td, Unspecified 09/01/2005 Medical History Medical History Date Comments MS (multiple sclerosis) ([facility]) DX:MS (multiple sclerosis) ([facility]) COPD (chronic obstructive pu lmonary disease) ([facility]) DX:COPD (chronic obstructive pulmonary disease) ([facility]) Emphysema lung ([facility]) DX:Emph ysema lung ([facility]) Diabetes mellitus ([facility]) DX:D iabetes mellitus ([facility]) Depression DX:Depression Anxiety DX:Anxiety Depression DX:Depression Family [...] Description 01/23/2025 8:00 AM EDT Office Visit [facility] [address] [place] [id number] Hermila Quintanilla MD [address] [facility] [address] [place] [phone] 04/11/2025 8:00 AM EDT Appointment [facility] [address] [place] [phone] Health Maintenance Due Date Last Done Comments [...] K/mcL LAB HEMETOLOGY METHOD 10/11/2024 9:[address] [facility] RBC 4.60 4.50 - 5.50 M/mcL LAB HEMETOLOGY METHOD 10/11/2024 9:[address] [facility] Hemoglobin 14.7 13.5 - 17.5 g/dL LAB HEMETOLOGY METHOD 10/11/2024 9:[address] [facility] Hematocrit 43.4 42.0 - 54.0 % LAB HEMETOLOGY METHOD 10/11/2024 9:[address] [facility] MCV 93.5 79.0 - 98.0 FL LAB HEMETOLOGY METHOD 10/11/2024 9:[address] [facility] MCH 31.7 27.0 - 32.0 pcg LAB HEMETOLOGY METHOD 10/11/2024 9:[address] [facility] MCHC 33.9 32.0 - 37.0 g/dL LAB HEMETOLOGY METHOD 10/11/2024 9:[address] [facility] RDW 12.1 11.0 - 15.0 % LAB HEMETOLOGY METHOD 10/11/2024 9:[address] [facility] Platelets 354 130 - 400 K/mcL LAB HEMETOLOGY METHOD 10/11/2024 9:[address] [facility] MPV 9.0 7.0 - 11.0 FL LAB HEMETOLOGY METHOD 10/11/2024 9:[address] [facility] NRBC 0.0 <1.0 % LAB HEMETOLOGY METHOD 10/11/2024 9:[address] [facility] NRBC Absolute 0.00 <0.10 K/mcL LAB HEMETOLOGY METHOD 10/11/2024 9:[address] [facility] Neutrophils Relative 69.9 % LAB HEMETOLOGY METHOD 10/11/2024 9:[address] [facility] Lymphocytes Relative 20.1 % LAB HEMETOLOGY METHOD 10/11/2024 9:[address] [facility] Monocytes Relative 6.9 % LAB HEMETOLOGY METHOD 10/11/2024 9:[address] [facility] Eosinophils Relative 2.0 % LAB HEMETOLOGY METHOD 10/11/2024 9:[address] [facility] Basophils Relative 0.6 % LAB HEMETOLOGY METHOD 10/11/2024 9:[address] [facility] Immature Granulocytes Relative 0.5 % LAB HEMETOLOGY METHOD 10/11/2024 9:[address] [facility] Neutrophils Absolute 4.59 1.50 - 7.00 K/mcL LAB HEMETOLOGY METHOD 10/11/2024 9:[address] [facility] Lymphocytes Absolute 1.32 1.00 - 5.00 K/mcL LAB HEMETOLOGY METHOD 10/11/2024 9:[address] [facility] Monocytes Absolute 0.45 0.20 - 1.00 K/mcL LAB HEMETOLOGY METHOD 10/11/2024 9:[address] [facility] Eosinophils Absolute 0.13 0.00 - 0.50 K/mcL LAB HEMETOLOGY METHOD 10/11/2024 9:53 AM EST [facility] Basophils Absolute 0.04 0.00 - 0.20 K/[facility] LAB HEMETOLOGY METHOD 10/11/2024 9:53 AM EST [facility] Immature Granulocytes Absolute 0.03 0.00 - 0.03 K/[facility] LAB HEMETOLOGY METHOD 10/11/2024 9:53 AM EST [facility] Blood Venous blood specimen / Unknown Venipuncture / Unknown 10/11/2024 8:08 AM EST 10/11/2024 8:08 AM EST Maytejuan PAT LAB BLOOD ORDERABLES Final R esult Performing Organization Address City/[facility]/ZIP Co de Phone Number [facility] [address] [place] [address], * Creatinine (10/11/2024 8:08 AM EST) Creatinine 1.04 0.70 - 1.30 mg/dL LAB CHEMISTRY METHOD 10/11/2024 10:23 AM EST [facility] eGFR 81 >=60 mL/min/1. 73m2 LAB CHEMISTRY METHOD 10/11/2024 10:23 AM EST [facility] Comment:Calculation based on the??Chronic Kidney Disease Epidemiology Collaboration (CKD-EPI) equation refit??without adjustment for race. Blood Venous blood specimen / Unknown Venipuncture / Unknown 10/11/2024 8:08 AM EST 10/11/2024 8:08 AM EST Maytejuan PAT LAB BLOOD ORDERABLES Final R esult Performing Organization Address City/[facility]/ZIP Co de Phone Number [facility] [address] [place] [address], [place] [phone] * BUN (10/11/2024 8:08 AM EST) Pathologist [facility] BUN 14 5 - 25 mg/dL LAB CHEMISTRY METHOD 10/11/2024 10:[address] [facility] Blood Venous blood specimen / Unknown Venipuncture / Unknown 10/11/2024 8:08 AM EST 10/11/2024 8:08 AM EST Mayte PAT LAB BLOOD ORDERABLES Final R esult [facility] [address] [place] [address], [place] [phone] * (ABNORMAL) Hepatic function panel (10/11/2024 8:08 AM EST) [facility] Total Protein 7.1 6.0 - 8.0 g/dL LAB CHEMISTRY METHOD 10/11/2024 10:[address] [facility] Albumin 3.7 3.2 - 5.0 g/dL LAB CHEMISTRY METHOD 10/11/2024 10:[address] [facility] Total Bilirubin 0.2 0.0 - 1.4 mg/dL LAB CHEMISTRY METHOD 10/11/2024 10:[address] [facility] Bilirubin, Direct <0.1 0.0 - 0.3 mg/dL LAB CHEMISTRY METHOD 10/11/2024 10:[address] [facility] Bilirubin, Indirect LAB CHEMISTRY METHOD 10/11/2024 10:[address] [facility] Comment:Unable to calculate Indirect Bilirubin. ALT (SGPT) 24 10 - 60 unit/L LAB CHEMISTRY METHOD 10/11/2024 10:[address] [facility] AST (SGOT) 12 10 - 42 unit/L LAB CHEMISTRY METHOD 10/11/2024 10:[address] [facility] Alkaline Phosphatase 130(H) 42 - 121 unit/L LAB CHEMISTRY METHOD 10/11/2024 10:23 AM EST [facility] Blood Venous blood specimen / Unknown Venipuncture / Unknown 10/11/2024 8:08 AM EST 10/11/2024 8:08 AM EST Mayte PTA LAB BLOOD ORDERABLES Final R esult [facility] [address] [place] [address], * (ABNORMAL) Hemoglobin A1c (08/15/2007) Hemoglobin A1C 6.1(A) 4.0 - 6.0 % Blood Venous blood specimen / Unknown Result [facility] Historical Provider LAB BLOOD ORDERABLES Nelly l Result * (ABNORMAL) Lipid panel (08/15/2007) Pathologist [facility] LDL/HDL Ratio 6(A) 0 - 4 Triglycerides 311(A) 0 - 150 mg/dL Cholesterol 214(A) 0 - 200 mg/dL HDL 36(A) >=40 mg/dL LDL Cholesterol 116(A) 0 - 100 mg/dL Blood Venous blood specimen / Unknown Result [facility] Historical Provider LAB BLOOD ORDERABLES Nelly l Result * Hepatitis C Screening (10/19/2000) Pathologist [facility] Hepatitis C Screening abstracted Historical Provider HEALTH MAINTENANCE Final Result from Last 3 Months or Most Recently Relevant to Health Maintenance Insurance [facility] MEDICARE Member Subscriber Plan / Payer (Ef fective 2024-Present) Name:Tristan Au Relation to Subscriber:Self Name:Tristan Au Payer ID:[id number] Group ID:[id number] Type:Not on file Address: [address] [place] [address] Care Teams Dental Intern Relationship Specialty Start Date End Date Josesito Rodriguez MD [address] [place] [address] PCP - General Internal Medicine 01/28/21
--- OUTSIDE RECORDS SUMMARY | 2025-01-04 09:06 | XMS_ITS | Clinical Summary ---
Author Organization [facility] Address [address] [place] [address] Care Team Providers Care Manager Reliability Name Role Phone Josesito Rodriguez MD Primary Care Provider +1- [phone] Allergies No known active allergies Medications Medication [...] 0 08/26/2021 Active ergocalciferol (VITAMIN D2) capsule 04988 units Take 1 capsule (50,000 Units total) [...] age to complete this topic Care Teams Manager Reliability Relationship Specialty Start Date End Date Josesito Rodriguez MD PCP - General Internal Medicine 01/28/21
--- OUTSIDE RECORDS SUMMARY | 2025-01-04 09:06 | XMS_ITS | Data Portability ---
Author Organization [facility] - [employer] Address [address] [place] [phone] Care Team Providers Care Cyber Security Systems Engineer Name Role Phone HIM [facility] OTHER ELEN NIXON Primary Care Provider Assessment Encounter Date Assessment Date Assessment LastModified by Organization Details LastModified Time 12/13/2024 12/13/2024 AAO, speaking in full sentences. Right foot: Erythema extending just below the ankle. Swelling noted on the dorsum of the foot and toes, especially the second toe. Open wound with purulent drainage at the first interdigital space; appears superficial. Foot is warm to the touch. No sensation noted on the right foot. [email or web address] Not available 12/13/2024 19:50:44 Plan of Treatment Reminders Order Date Submit Date Provider Last Modified By Organization Details Last Modified Time Details Appointments None record ed. Lab None record ed. Referral None record ed. Procedures None record ed. Surgeries None record ed. Imaging None record ed. Medication Orders None record ed. Patient TargetsNo targets recorded. Patient InstructionsNo instructions recorded. Reason for Referral None Reported. Medical Equipment None Reported. Allergies No known drug allergies Medications Name Sig Start Date Stop Date Status Note LastModified by Organization Details LastModified Time atorvastatin 80 mg tablet TAKE 1 TABLET BY MOUTH ONCE DAILY active Not Available Not Available No t Available clonazepam 0.5 mg tablet TAKE 1 TABLET BY MOUTH ONCE DAILY active Not Available Not Available No t Available topiramate 25 mg tablet active Not Available Not Available No t Available amoxicillin 875 mg tablet TAKE 1 TABLET BY MOUTH every 12 hours FOR 10 DAYS active Not Available Not Available No t Available pantoprazole 40 mg tablet,delaye d release TAKE 1 TABLET BY MOUTH DAILY active Not Available Not Available No t Available metformin 1,000 mg tablet TAKE 1 TABLET BY MOUTH TWICE DAILY active Not Available Not Available No t Available ergocalcifero l (vitamin D2) 1,250 mcg (50,000 unit) capsule Take 1 capsule (50,000 Units total) by mouth once a week. active Not Available Not Available No t Available fluoxetine 20 mg capsule TAKE 3 CAPSULES (60mg) BY MOUTH DAILY EVERY MORNING active Not Available Not Available No t Available aripiprazole 15 mg tablet TAKE 1 TABLET BY MOUTH ONCE DAILY active Not Available Not Available No t Available bupropion HCl XL 150 mg 24 hr tablet, extended release TAKE 1 TABLET BY MOUTH DAILY EVERY MORNING active Not Available Not Available No t Available guanfacine ER 3 mg tablet,extend ed release 24 hr Take 1 tablet by mouth once a day active Not Available Not Available No t Available Anoro Ellipta 62.5 mcg-25 mcg/actuation powder for inhalation inhale 1 PUFF BY MOUTH ONCE DAILY active Not Available Not Available No t Available Trulicity 0.75 mg/0.5 mL subcutaneous pen injector inject 1 pen UNDER THE SKIN ONCE A WEEK active Not Available Not Available No t Available Trulicity 4.5 mg/0.5 mL subcutaneous pen injector inject 1 injection UNDER THE SKIN ONCE every 7 DAYS active Not Available Not Available No t Available Vitals Date Recorded Body temperature Respiratory rate Heart rate Oxygen saturation Oxygen saturation in Arterial blood by Pulse oximetry Systolic blood pressure Diastolic blood pressure Provider Name and Address Organization Details Last Updated DateTime 5 98.2 [degF] 16 /min 95 /min 98 % 98 % 132 mm[Hg] 102 mm[Hg] Not Available [facility] - production 5 18:40:17 Social History None recorded. Functional Status None recorded. Mental Status None recorded. Family History Nothing Reported. Medical History No medical history recorded. Past Encounters Encounter ID Performer Location Encounter Start Date Encounter Closed Date Diagnosis/Indication Diagnosis SNOMED-CT Code Diagnosis ICD10 Code Diagnosis Note [id number] BETHANY ISAAC MD Main - [facility] [address] [place] [phone] 12/13/2024 18:40:09 12/13/2024 22:55:56 Ulcer of right foot due to type 2 diabetes mellitus [id number] 2035520 E11.621 Evaluation in the field was performed by my circuitry negative inspector colleague, as noted above, I provided real-time direction and supervisio n for this visit. The evaluation revealed 64-year-ol d male with a history of Type 2 Diabetes Mellitus with diabetic neuropathy and Multiple Sclerosis, presenting with right foot swelling and redness for the past few days. The patient reports a self-drain ed blister between the first and second toes caused by work boots, followed by redness, swelling, and purulent drainage. Denies fever or chills. Reports lack of sensation in the right foot due to neuropathy and MS. Vital Signs: Stable, HR 95, afebrilePh ysical Exam:Right foot: Erythema extending just below the ankle. Swelling noted on the dorsum of the foot and toes, especially the second toe. Open wound with purulent drainage at the first interdigit al space; appears superficia l.Foot is warm to the touch. No sensation noted on the right foot.Surya goodwin: Reviewed Impression :Likely infected diabetic foot ulcer Plan:-The patient is at high risk of worsening infection, including potential sepsis. He requires:- Wound culture to identify the pathogen and determine antibiotic sensitivit y.-CBC, CRP, and ESR to evaluate the presence of infection and inflammati on.-Foot X-ray to assess for underlying osteomyeli tis.-Initi ation of empiric broad-spec trum antibiotic therapy is necessary, ideally starting with an intravenou s dose, followed by a transition to oral antibiotic s.-As none of the above diagnostic s or treatments can be performed in the current setting, and the circuitry negative inspector team is BLS-certif ied (unable to establish a PIV or administer IV antibiotic s), the patient was strongly advised to go to the ED for further evaluation and management .-Attempte d to contact [facility] to provide a report but was unable to reach anyone . Primary care, consider__ _ Dispositio n:We discussed the situation and I recommende d referral to the emergency department . Health Concerns Section Related Observation LastModified by Organization Detai ls LastModified Time None Recorded Concern Status LastModified by Organization Details LastModified Time None Recorded Advance Directives Directive None Recorded Payers Encounter Date Sequence Insurance Name Policy Number Policy Flor Covered Member ID Flor Member ID Guarantor Name 12/13/2024 1 [facility] - DOS ON OR AFTER 2023 - DUAL ELIGIBLE - [employer] OPTIONS AND ONE CARE (MEDICARE REPLACEMENT/ADV ANTAGE - HMO) Tristan Au [id number] Tristan Au Notes Date Note Type Note Provider Name and Address Organization Details Recorded Time 12/13/2024 text/html [facility] Nurse Triage Notes (Adrienne Morris - RN): Patient Reports: History of cellulitis, isolated redness noted Denies: Long ? Flash, circumferential long Long reported with black tissue to the area Open skin area after a fall with uncontrolled bleeding Abscess/infection with streaking noted, presence of fever or without Chief Complaints: Diabetes-related, Wound care PMH: Diabetes Mellitus Type 2, Multiple Sclerosis PMH Reviewed at 12/13/2024 Allergies Reviewed at 12/13/2024:59 Comments: Patient has a wound to right foot between first and second toes x3 months. Increased swelling and redness within the last few weeks. Patinet has sharp pain to area. Scab came off yesterday morning and was bleeding. Denies fevers. Does not have wound care currently. Education provided on the response time and the member was advised to monitor reported s/s and seek emergency treatment if needed. ..................... ..................... ..................... ..................... ..................... ..................... ............... Social Science Analyst Note From Travis Day: Was dispatched for a 64 Y/O male complaining of an infection on his right foot. [facility] PT was in his living room. PT is A/Ox4. PT reported he had a blister that popped a week ago and it has festered since. PT vitals were obtained and an assessment was performed. Nothing remarkable was found upon completion of assessment. [facility] was contacted, [facility] told the PT he needs IV antibiotics due to the extent of the infection. PT understood. 911 was contacted, [facility] arrived on scene and transported the PT to [facility]. Crew cleared. ..................... ..................... ..................... ..................... ..................... ..................... ............... [facility] Consulted: Bethany Isaac ..................... ..................... ..................... ..................... ..................... ..................... ............... Disposition: Fulfilled BETHANY ISAAC MD [address] [facility], [place], [address], ANNAMARIA MCKEE 12/13/2024 19:51:02
--- OUTSIDE RECORDS SUMMARY | 2025-01-04 09:06 | XMS_ITS | Continuity of Care Document ---
Author Organization [facility] [facility] [place] - [facility] Address [address] [place] [phone] Care Team Providers Care Repair Electric Motor Assembler Name Role Phone HIM CCA OTHER ELEN NIXON Primary Care Provider [phone] Assessment Encounter Date Assessment Date Assessment LastModified [...] SNOMED-CT Code Diagnosis ICD10 Code Diagnosis Note [id number] BETHANY ISAAC MD Main - [facility] [address] [place] [phone] 12/13/2024 18:40:09 12/13/2024 22:55:56 Ulcer of right foot due to type 2 diabetes mellitus [id number] E11.621 Evaluation in the field was performed by my learning consultant colleague, as noted above, I provided real-time [...] performed in the current setting, and the learning consultant team is BLS-certif ied (unable to establish a PIV or administer IV antibiotic s), the patient was strongly advised to go to the ED for further evaluation and management .-Attempte d to contact [facility] to provide a report but was unable to reach anyone . Primary care, consider__ _ Dispositio n:We discussed the situation and I recommende d referral to the emergency department . Health Concerns Section Related Observation LastModified by Organization Detai ls LastModified Time None Recorded Concern Status LastModified by Organization Details LastModified Time None Recorded Payers Encounter Date Sequence Insurance Name Policy Number Policy Flor Covered Member ID Flor Member ID Guarantor Name 12/13/2024 1 [facility] - DOS ON OR AFTER 2023 - DUAL ELIGIBLE - [employer] OPTIONS AND ONE CARE (MEDICARE REPLACEMENT/ADV ANTAGE - HMO) Tristan Au [id number] Tristan Au Notes Date Note Type Note Provider Name and Address Organization Details Recorded Time 12/13/2024 text/html [facility] Nurse Triage Notes (Edney, Adrienne - RN): Patient Reports: History of cellulitis, [...] ..................... ..................... ..................... ..................... ..................... ..................... ............... Supervisor [place] Note From Travis Day: Was dispatched for a 64 Y/O male complaining of an infection on his right foot. [facility] PT was in his living room. PT is A/Ox4. PT reported he had a blister that popped a week ago and it has festered since. PT vitals were obtained and an assessment was performed. Nothing remarkable was found upon completion of assessment. [facility] was contacted, [facility] told the PT he needs IV antibiotics due to the extent of the infection. PT understood. 911 was contacted, [facility] arrived on scene and transported the PT to [facility]. Crew cleared. ..................... ..................... ..................... ..................... ..................... ..................... ............... [facility] Consulted: Bethany Isaac ..................... ..................... ..................... ..................... ..................... ..................... ............... Disposition: Fulfilled BETHANY ISAAC MD [address] [facility],[address], [place], [address], ANNAMARIA MCKEE 12/13/2024 19:51:02
== END 2025-01-04 08:35 | disposition home or self-care (01) ==
LOC: HO.CT 08:34
PROVIDERS: PCP Family Medicine; Visit Provider Physician Assistant Medical
DX: Z12.2 Encounter for screening for malignant neoplasm of respiratory organs (principal); F17.210 Nicotine dependence, cigarettes, uncomplicated
CPT/HCPCS: 71271; G0296

== ENCOUNTER 2025-01-04 08:39 | Outpatient (AMB) | payer OTHER, SELFPAY ==
--- NOTE | 2025-01-04 07:50 | MHC.OFFVIS ---
Intake Visit Reasons: Current Smoker Allergies No Known Allergies [No Known Allergies*] Allergy (Verified 12/14/24 11:49) HPI HPI Current Smoker: Details: Initial visit for this 64yo smoker with a 45PYH. Patient started smoking at age 18 for 46 years at 1ppd. Max 1.5ppd, now less than 1ppd. . Reports marijuana use once a month. Denies second hand smoke exposure. Denies exposure to chemicals or substances like asbestos. . Denies known family history of lung cancer. Denies personal history of cancers. Denies chest CT in last year. . Denies recent travel outside the [place]. Denies recent respiratory illness or recent hospitalization for respiratory issues. Reports history of testing positive for COVID. Admits receiving COVID Vaccine. . Denies fever, chills, new/worsening cough, hemoptysis, hoarseness or dysphagia. Denies significant chest pain, significant dyspnea or unintentional weight loss. Patient Lung Cancer Screening Questionnaire reviewed with patient by provider. . Shared Decision Making Completed. Patient meets criteria. Discussed in detail with patient, the risk vs benefit of LDCT screening. Patient consents to proceed with scan. Discussed smoking cessation. [facility] Medical History (Updated 01/04/25 @ 09:07 by Iesha Colby PA-C) Depression with anxiety Diabetes Hypercholesteremia COPD (chronic obstructive pulmonary disease) Nicotine dependence, cigarettes, uncomplicated Imbalance Neuropathy Acid reflux Surgical History (Updated 01/04/25 @ 09:07 by Iesha Colby PA-C) No pertinent past surgical history Family History Mother Diabetes Cancer of kidney Father Diabetes Cardiovascular disease Social History (Updated 01/04/25 @ 09:07 by Iesha Colby PA-C) Housing: Other (mobile home) Alcohol intake: current Patient Tobacco Use Status: Current everyday Tobacco user Cigarette Packs Per Day: 1 Years Smoked: (onset 18yo, 1ppd x 46yrs, 45pyh) e-Cigarette/Vaping Use: Never Used Second Hand Smoke Exposure: No Substance Use Type: Marijuana service: Yes Current occupational status: disabled Cognitive needs: No Hearing needs: No Vision needs: Yes (glasses for close up) Assessment & Plan Assessment & Plan (1) Nicotine dependence, cigarettes, uncomplicated: Comment: (onset 18yo, 1ppd x 46yrs, 45pyh) Code(s): F17.210 - Nicotine dependence, cigarettes, uncomplicated Category: Medical Plan: - SDM visit completed today in office. - Patient meets criteria for LDCT for lung cancer screening purposes and is asymptomatic. - Smoking cessation counseling offered. Patients can always call [phone]. - Will arrange for a LDCT scan of the chest for screening purposes at [facility]. - Risks, benefits, and alternatives were discussed in detail and the patient agrees to proceed. - Risks discussed include but are not limited to: radiation exposure, anxiety during testing and while awaiting results, false negatives, false positives and possibility of additional intervention such as further imaging or surgical procedures for benign disease. - Benefits are obviously detection of lung cancer at an early stage which can lead to improved outcomes. - Discussed the importance of screening program compliance with adherence to yearly LDCT scan as scheduled - or sooner interval scans for personalized screening regimen. - Discussed follow up plan. Our office will send a letter discussing results and if needed set up phone call and office visit based on CT findings. - Patient educated on results categorization and the management decisions for suspicious findings potentially found on the screening LDCT scan. Any patient with a Lung RADS score of 3 or 4 will be reviewed by a multidisciplinary team at [facility] to form a plan of action in regards to scan findings. - If further work up is warranted for a suspicious lung finding this will be followed by the Lung Cancer Screening program in conjunction with the Thoracic Surgery Department at [facility]. - A copy of the office note and LDCT will be sent to the patient's PCP - as well as documentation on any associated further plans of care. - Incidental findings on LDCT are the PCP's responsibility. These findings are indicated with an S finding on the LDCT Assessment. A note discussing the findings will be sent to the PCP who is then responsible for further management. - All questions answered.? Coding Level of Care Code Lung Cancer Screening G0296 Diagnoses Nicotine dependence, cigarettes, uncomplicated F17.210
== END 2025-01-04 09:10 | disposition home or self-care (01) ==
PROVIDERS: PCP Family Medicine; Visit Provider Physician Assistant Medical
DX: F17.210 Nicotine dependence, cigarettes, uncomplicated (principal)
CPT/HCPCS: G0296

== ENCOUNTER → 2025-01-04 09:08 | Outpatient (BNV) | payer OTHER, SELFPAY | PROVIDERS: PCP Family Medicine; Visit Provider Radiology Diagnostic Radiology | DX: F17.210 Nicotine dependence, cigarettes, uncomplicated (principal) | CPT/HCPCS: 71271 ==

== ENCOUNTER 2025-02-12 10:15 | Outpatient (REF) | payer OTHER, SELFPAY ==
--- OUTSIDE RECORDS SUMMARY | 2025-02-12 12:09 | XMS_ITS | Clinical Summary ---
Author Organization [facility] Address [address] [place] [address] Care Team Providers Care Day Camp Unit Leader Name Role Phone Josesito Rodriguez MD Primary Care Provider +1- [phone] Allergies No known active allergies Medications Medication [...] 0 08/26/2021 Active ergocalciferol (VITAMIN D2) capsule 38939 units Take 1 capsule (50,000 Units total) [...] age to complete this topic Care Teams Day Camp Unit Leader Relationship Specialty Start Date End Date Josesito Rodriguez MD PCP - General Internal Medicine 01/28/21
--- OUTSIDE RECORDS SUMMARY | 2025-02-12 12:09 | XMS_ITS | Clinical Summary ---
Author Organization 175 [facility] Address 175 [place] [address] Phone Care Team Providers Care Medical Accounts Receivable Specialist Name Role Phone Josesito Rodriguez MD Primary Care Provider [phone]- [phone] Allergies No known active allergies Medications ARIPiprazole [...] Problem Noted Date Diagnosed Date Multiple sclerosis [place] [place] [facility] Type 2 diabetes mellitus [facility] [place] V 28) 03/26/2021 Alcohol abuse 08/15/2007 Tobacco use disorder 03/31/2006 Disturbance of skin sensation 11/30/2005 Pain in limb 11/30/2005 Anxiety state 11/25/2005 Infectious colitis, enteritis and gastroenteriti s 11/25/2005 Overview (10/12/2024): [facility] Depressive disorder 11/25/2005 Hyperlipidemia 11/25/2005 Immunizations Name Administration Dates Next Due [employer] SARS-CoV-2 COVID -19, vector-nr, rS-Ad26, preservative free 02/02/2021 Td, Unspecified 09/01/2005 Medical History Medical History Date Comments MS (multiple sclerosis) ([facility] V24, [facility]) DX:MS (multiple sclerosis) ( [facility]) COPD (chronic obstructive pu lmonary disease) ([facility], [facility]) DX:COPD (chronic o bstructive pulmonary disease) ([facility]) Emphysema lung ([facility], [facility]28) DX:Emphysema lung ([facility]) Diabetes mellitus ([facility] V 24, [facility]) DX:Diabetes mellitus ([facility]) Depression DX:Depression Anxiety DX:Anxiety Depression DX:Depression Family [...] Care Team (Late st Contact Info) Description 02/18/2025 8:30 AM EDT Office Visit [facility] [place] [address] [facility] [address] [place] [phone] Mayte Otto PA 175 [facility] [address] [place] [address] 04/11/2025 8:00 AM EDT Appointment [facility] [place] [address] [phone] Health Maintenance Due Date Last Done Comments [...] Vaccines (1 of 2) 2012 RSV Immunization Adult Patients (1 - Risk 60-74 years 1-dose series) [...] 5 season) 2024 09/28/2021, 02/02/2021 Influenza Vaccine (Season Ended) 2025 Diabetes: Annual GFR (Glomerular Filtration Rate) 10/11/2025 [...] age to complete this topic Meningococcal B Vaccine Aged Out No l onger eligible based on patient's age to complete this topic RSV Immunization Patients Under 20 months Aged Out No longer eligible b ased on patient's age to complete this topic Varicella Vaccines Aged Out No longer eligible based on patient's age to complete this topic Procedures Procedure Name Priority Date/Time Associated Diagnosis Comments CREATININE, SERUM Routine 10/11/2024 8:0 8 AM EST HEMOGLOBIN A1C Routine 08/15/2007 LIPID PANEL Routine 08/15/2007 HM HEPATITIS C SCREENING Routine 10/19/2000 from Last 3 Months or Most Recently Relevant to Health Maintenance Results * Creatinine (10/11/2024 8:08 AM EST) Pathologist [facility] Creatinine 1.04 0.70 - 1.30 mg/dL LAB CHEMISTRY METHOD 10/11/2024 10:23 AM EST [facility] eGFR 81 >=60 mL/min/1. 73m2 LAB CHEMISTRY METHOD 10/11/2024 10:23 AM EST [facility] Comment:Calculation based on the??Chronic Kidney Disease Epidemiology Collaboration (CKD-EPI) equation refit??without adjustment for race. Blood Venous blood specimen / Unknown Venipuncture / Unknown 10/11/2024 8:08 AM EST 10/11/2024 8:08 AM EST Result [facility] Mayte PAT LAB BLOOD ORDERABLES Final R esult [facility] [address] [place] [address], * (ABNORMAL) Hemoglobin A1c (08/15/2007) Pathologist [facility] Hemoglobin A1C 6.1(A) 4.0 - 6.0 % Blood Venous blood specimen / Unknown Result [facility] Historical Provider LAB BLOOD ORDERABLES Nelly l Result * (ABNORMAL) Lipid panel (08/15/2007) Pathologist [facility] LDL/HDL Ratio 6(A) 0 - 4 Triglycerides 311(A) 0 - 150 mg/dL Cholesterol 214(A) 0 - 200 mg/dL HDL 36(A) >=40 mg/dL LDL Cholesterol 116(A) 0 - 100 mg/dL Blood Venous blood specimen / Unknown Result [facility] Historical Provider LAB BLOOD ORDERABLES Nelly l Result * Hepatitis C Screening (10/19/2000) Pathologist [facility] Hepatitis C Screening abstracted Result [facility] Historical Provider HEALTH MAINTENANCE Final Result from Last 3 Months or Most Recently Relevant to Health Maintenance Insurance [employer] MEDICARE Member Subscriber Plan / Payer (Ef fective 2024-Present) Name:Tristan Au Relation to Subscriber:Self Name:Tristan Au Payer ID:[id number] Group ID:[id number] Type:Not on file Address: [place] [address] [place] [id number] Care Teams Medical Accounts Receivable Specialist Relationship Specialty Start Date End Date Josesito Rodriguez MD [address] [place] [address] PCP - General Internal Medicine 01/28/21
--- OUTSIDE RECORDS SUMMARY | 2025-02-12 12:10 | XMS_ITS | Data Portability ---
Author Organization [email or web address] [facility], [place] - [employer] Address [address] [place] [phone] Care Team Providers Care Campaign Consultant Name Role Phone HIM CCA OTHER ELEN [...] SNOMED-CT Code Diagnosis ICD10 Code Diagnosis Note [id number] BETHANY ISAAC MD Main - instED [address] [place] [phone] 12/13/2024 18:40:09 12/13/2024 22:55:56 Ulcer of right foot due to type 2 diabetes mellitus [id number] E11.621 Evaluation in the field was performed by my operating room tech colleague, as noted above, I provided real-time [...] performed in the current setting, and the operating room tech team is BLS-certif ied (unable to establish a PIV or administer IV antibiotic s), the patient was strongly advised to go to the ED for further evaluation and management .-Attempte d to contact [facility] to provide a report but was [...] Flor Member ID Guarantor Name 12/13/2024 1 [facility] - DOS ON OR AFTER 2023 - DUAL ELIGIBLE - RETIREMENT OPTIONS AND ONE CARE (MEDICARE REPLACEMENT/ADV ANTAGE - HMO) Tristan Au [id number] Tristan Au Notes Date Note Type Note [...] ..................... ..................... ..................... ..................... ..................... ..................... ............... Stretch Press Operator Note From Travis Day: Was dispatched for a 64 Y/O male complaining of an infection on his right foot. [facility] PT was in his living room. PT is A/Ox4. PT reported he had a blister that popped a week ago and it has festered since. PT vitals were obtained and an assessment was performed. Nothing remarkable was found upon completion of assessment. [facility] [place] [facility], [facility] told the PT he needs IV antibiotics due to the extent of the infection. PT understood. 911 was contacted, [facility] arrived on scene and transported the PT to [facility]. Crew cleared. ..................... ..................... ..................... ..................... ..................... ..................... ............... [facility] Consulted: Bethany Isaac ..................... ..................... ..................... ..................... ..................... ..................... ............... Disposition: Fulfilled BETHANY ISAAC MD [address] [facility],[address], [place], [address], ANNAMARIA MCKEE 12/13/2024 19:51:02
[2025-02-12 14:32] LABS: Appearance Urine Clear; Color Urine Yellow; Glucose Urine UA >=1000 mg/dL (Negative); Leukocyte Esterase Urine Negative (Negative); Nitrite Urine Negative (Negative); PH 5.5 (5.0-9.0); Specific Gravity - Urine >= 1.030 (1.005-1.025); UMIC TRIGGER UA YES; UMIC TRIGGER UACC YES; Urine Blood Negative (Negative); Urine Ketones Negative (Negative); Urine Protein Negative (Neg-Trace)
[2025-02-12 14:35] LABS: Bacteria Urine None Seen (None Seen); Hyaline Casts Urine 0-2 /LPF (0-2); RBC Urine 0-2 /HPF (0-2); Squamous Epithelial Cell Urine 0-2 /HPF (0-2); WBC Urine 0-5 /HPF (0-5)
[2025-02-12 14:44] LABS: MANUAL DIFF FLAG NO
[2025-02-12 14:49] LABS: Basophils Percent Auto 0.5 % (0-2); Eosinophils Absolute Auto 0.2 X10*3/uL (0.0-0.4); Eosinophils Percent Auto 2.7 % (0-4); Hematocrit 39.1 % (42.0-52.0); Hemoglobin 13.9 g/dl (14.0-18.0); Imm Gran Abs Auto 0.04 X10*3/uL (0.00-0.03); Imm Gran Pct Auto 0.6 % (0.0-0.4); Lymphocytes Absolute Auto 1.6 X10*3/uL (1.2-4.9); Mean Corpuscular HGB Conc 35.5 g/dl (31.0-36.0); Mean Corpuscular Volume 89.9 fL (80.0-98.0); Mean Platelet Volume 9.2 fL (9.4-12.4); Monocytes Absolute Auto 0.5 X10*3/uL (0.1-1.2); Monocytes Percent Auto 7.6 % (2-11); Neutrophils Percent Auto 63.6 % (45-73); Platelet Count 323 X10*3/uL (160-400); Red Blood Count 4.35 X10*6/uL (4.60-5.80); White Blood Count 6.2 X10*3/uL (4.8-10.8)
[2025-02-12 15:12] LABS: Estimated Average Glucose 280 mg/dL; Hemoglobin A1C 368.1927 umol/L; Hemoglobin A1c % 11.4 % (<6.0); Total Hemoglobin (HGBA1C) 3637.0794 umol/L
[2025-02-12 15:14] LABS: Creatinine Urine 38.77 mg/dL; Microalbumin Urine < 5.0 mg/L
[2025-02-12 15:17] LABS: Alanine Aminotransferase 12 U/L (0-40); Albumin Level 3.8 g/dL (3.5-5.0); Anion Gap 11 (12-20); Aspartate Amino Transferase 18 U/L (5-37); Bilirubin Total 0.3 mg/dL (0.0-1.0); Blood Urea Nitrogen 11 mg/dL (9-16); Calcium 8.8 mg/dL (8.4-10.2); Carbon Dioxide 20 mmol/L (22-29); Chloride 106 mmol/L (96-108); Cholesterol 178 mg/dL (<200); Estimated Glomerular Filt Rate > 60; HDL Cholesterol 45 mg/dL (>40); LDL Cholesterol Calculated 112 mg/dL (<100); Sodium 133 mmol/L (135-145); Total Protein 6.5 g/dL (6.5-8.0); Triglycerides 105 mg/dL (<150)
[2025-02-12 15:26] LABS: Prostate Specific Antigen Scr 1.35 ng/mL (<0.05-4.0)
[2025-02-12 17:55] LABS: Alkaline Phosphatase 132 U/L (39-117); Glucose Fasting 416 mg/dL (60-99); TSH reflex Free T4 2.32 uIU/mL (0.32-4.0)
== END 2025-02-12 10:16 | disposition home or self-care (01) ==
LOC: HO.WFDLDS 10:15
PROVIDERS: Visit Provider Family Medicine
DX: Z00.00 Encounter for general adult medical examination without abnormal findings (principal); R73.01 Impaired fasting glucose; Z12.5 Encounter for screening for malignant neoplasm of prostate; I10 Essential (primary) hypertension
CPT/HCPCS: 36415; 80053; 80061; 81001; 82043; 82570; 83036; 84153; 84443; 85025

== ENCOUNTER 2025-02-13 11:32 | Outpatient (AMB) | payer OTHER, SELFPAY ==
--- NOTE | 2025-02-13 11:46 | MHC.PC.OV ---
Vital Signs 02/13/25 11:50 Height 6 ft Weight 191 lb 4 oz BMI 25.9 BP 130/62 Blood Pressure Location Lt brachial Position Sitting Respiration 16 Pulse 78 Pulse Source Pulse Oximeter Temp 97.9 F Temp Source Oral Pulse Oximetry (%) 99 Oxygen Delivery Method Room Air Intake Visit Reasons: BLOODWORK/OTHER CONCERNS CHECK UP Intake Note: patient is scheduled for lab review and high blood sugars a1c was perfomed all meds need to be refilled. Bag Mender Required: No Allergies No Known Allergies [No Known Allergies*] Allergy (Verified 02/13/25 11:47) Tobacco use date assessed: 11/14/24 Dental Screening Dental Screen Date: 11/14/24 HPI BLOODWORK/OTHER CONCERNS CHECK UP HPI Details 64 y/o male presents to f/u chronic conditions. Labs drawn 02/12/25. Reviewed labs with pt. Mild anemia. A1c 11.4%. Triglycerides 105. TC 178. LDL 112. HDL 45. PSA 1.35. TSH 2.32. He notes he has only been taking metformin 1000mg once a day in the morning. He has not received his Trulicity yet. He notes he has a therapist for his mood. HPI Comments History of Present Illness Details Documentation assistance for Christian Ac MD, was provided by Jose Manuel Carrizales,? Gymnastics Instructor on 02/13/2025 at 11:59 AM EST. I, Dr. Ac, have read, observed, and verified documentation. ? COUNT INCLUDES THE [facility] Medical History (Updated 02/13/25 @ 11:59 by Jose Manuel Carrizales) Depression with anxiety Diabetes Hypercholesteremia COPD (chronic obstructive pulmonary disease) Nicotine dependence, cigarettes, uncomplicated Imbalance Neuropathy Acid reflux Surgical History (Updated 01/04/25 @ 09:07 by Iesha Colby PA-C) No pertinent past surgical history Family History Mother Diabetes Cancer of kidney Father Diabetes Cardiovascular disease Social History (Updated 01/04/25 @ 09:07 by Iesha Colby PA-C) Housing: Other (mobile home) Alcohol intake: current Patient Tobacco Use Status: Current everyday Tobacco user Cigarette Packs Per Day: 1 Years Smoked: (onset 18yo, 1ppd x 46yrs, 45pyh) e-Cigarette/Vaping Use: Never Used Second Hand Smoke Exposure: No Substance Use Type: Marijuana service: Yes Current occupational status: disabled Cognitive needs: No Hearing needs: No Vision needs: Yes (glasses for close up) Questionnaire PHQ-9 Over the last 2 weeks, how often have you been bothered by any of the following problems? 2. Feeling down, depressed, or hopeless: nearly every day 3. Trouble falling or staying asleep, or sleeping too much: not at all Source: Developed by Drs. Jose Story, Allison Mejia, Antoine Ray and colleagues, with an educational franca from [employer]. Thrive Questionnaire Date Thrive assessed: 12/14/24 I am a: Patient What is your living situation today?: I have a steady place to live Within the past 12 months, did the food you bought not last and you didn't have the money to get more?: Sometimes True Within the past 12 months, did you worry whether your food would run out before you got money to buy more?: Sometimes True Do you have trouble paying for medicines?: No Do you have trouble getting transportation to medical appointments?: Yes Do you have trouble paying your heating and electricity bill?: Yes Do you have trouble taking care of your child, family member or friend?: I choose not to answer this question Do you have trouble with day-to-day activities such as bathing, preparing meals, shopping, managing finances, etc.?: Yes Are you currently unemployed and looking for a job?: No Are you interested in more education?: No Please select the resources that you would like help with: Utilities Currently or been in a relationship where the following occur: I choose not to answer THRIVE Score: 4 OKSANA-7 AMB Questionnaire OKSANA-7 Date OKSANA - 7 assessed: 11/14/24 Source: Developed by Drs. Jose Story, Allison Mejia, Antoine Ray and colleagues, with an educational franca from [employer]. Review of Systems Const Denies chills, Denies fatigue, Denies fever(s), Denies headache(s) and Denies weakness ENT Denies dizziness and Denies headache(s) Card Denies dyspnea Resp Denies cough, Denies dyspnea, Denies wheezing and Denies other (shortness of breath) Musc Denies numbness and Denies tingling Neuro Denies dizziness, Denies headache(s), Denies numbness, Denies tingling and Denies weakness Psych Denies anxiety and Denies depression Endo Denies fatigue Aller/Immun Denies wheezing Physical exam (Primary Care) Vital Signs: Last Vital Signs Temp 97.9 F 02/13/25 11:50 Pulse 78 02/13/25 11:50 Resp 16 02/13/25 11:50 BP 130/62 02/13/25 11:50 Pulse Ox 99 02/13/25 11:50 Oxygen Delivery Method Room Air 02/13/25 11:50 BMI result Body Mass Index 25.9 Tobacco/Smoking Status: Tobacco use Status Tobacco use date assessed 11/14/24 02/13/25 11:46 Patient Tobacco Use Status Current everyday Tobacco 02/13/25 11:46 e-Cigarette/Vaping Use Never Used 02/13/25 11:46 Thrive Assessment: Date of Thrive Assessment Date Thrive assessed 12/14/24 02/13/25 11:46 Currently or been in a relationship where the following occur: I choose not to answer Const General: well developed; No acute distress Nutritional Appearance: well nourished Orientation/consciousness: patient oriented x3 HENMT Head: Yes normocephalic and Yes atraumatic Eyes General: appearance normal, both eyes and all related structures Pupils: Equal, round and reactive pupils present EOM: EOMs intact bilaterally Resp Effort & Inspection: normal respiratory effort Auscultation: clear to auscultation bilaterally Cardio Rate: regular rate Rhythm: regular rhythm Heart sounds: S1 normal heart sound present, S2 normal heart sound present, no gallops, no murmurs and no rubs Neuro General: patient oriented x3 and gait normal Cranial nerves: Yes Equal, round and reactive pupils present Psych Affect: normal affect Coding Level of Care Code Est Pt Level 4 (46109) Diagnoses Uncontrolled diabetes mellitus with hyperglycemia E11.65 Hypercholesteremia E78.00 Depression with anxiety F41.8 Assessment & Plan Assessment & Plan (1) Uncontrolled diabetes mellitus with hyperglycemia: Code(s): E11.65 - Type 2 diabetes mellitus with hyperglycemia Category: Medical Plan: Lab?work?yesterday?showed?blood?sugar?was?416 Patient?says?he?is?taking?metformin?once?per?day.??He?is?not?sure?much. Did?not?get?Trulicity Start?Lantus?10?units?daily Close?follow-up,?will?get?him?back?in?1?month (2) Hypercholesteremia: Code(s): E78.00 - Pure hypercholesterolemia, unspecified Category: Medical Plan: Patient?says?he?did?not?get?atorvastatin Will?recent?Michelle?I?asked?him?to?pick?it?up?and?start?medications (3) Depression with anxiety: Code(s): F41.8 - Other specified anxiety disorders Category: Medical Plan: Patient?did?pick?up?his?psychiatric?medications.??He?also?has?a?therapist?and?has?an?appointment?for?psychiatrist Continue?current?medications Medications: New insulin glargine (Lantus Solostar U-100 Insulin) 10 units (0.1 mL) subcut DAILY 30 days 3 mL 3RF pen needle, diabetic To treat Blood sugar once per day, As directed, 90 days 100 ea 3RF E11.65 - Type 2 diabetes mellitus with hyperglycemia Refilled atorvastatin 80 mg PO DAILY 90 days 90 tabs 2RF E11.65 - Type 2 diabetes mellitus with hyperglycemia metformin 1,000 mg PO BID 90 days 180 tabs 3RF E11.65 - Type 2 diabetes mellitus with hyperglycemia
[2025-02-13 11:50] VITALS: BP 130/62; PULSE 78; RESP 16; TEMP 36.6; O2SAT 99; BMI 25.9
--- OUTSIDE RECORDS SUMMARY | 2025-02-13 14:00 | XMS_ITS | Clinical Summary ---
Author Organization 175 [facility] Address [address] [place] [address] Phone Care Team Providers Care Business Office Technology Instructor Name Role Phone Josesito Rodriguez MD Primary Care Provider +1- [phone] Allergies No known active allergies Medications ARIPiprazole [...] Problem Noted Date Diagnosed Date Multiple sclerosis ([facility] V24, [facility] V28) Type 2 diabetes mellitus ([facility] V24, [facility] V 28) 03/26/2021 Alcohol abuse 08/15/2007 Tobacco use disorder 03/31/2006 Disturbance of skin sensation 11/30/2005 Pain in limb 11/30/2005 Anxiety state 11/25/2005 Infectious colitis, enteritis and gastroenteriti s 11/25/2005 Overview (10/12/2024): [facility] Depressive disorder 11/25/2005 Hyperlipidemia 11/25/2005 Immunizations Name Administration Dates Next Due [employer] SARS-CoV-2 COVID -19, vector-nr, rS-Ad26, preservative free 02/02/2021 Td, Unspecified 09/01/2005 Medical History Medical History Date Comments MS (multiple sclerosis) ([facility] V24, [facility] V28) DX:MS (multiple sclerosis) ( [facility]) COPD (chronic obstructive pu lmonary disease) ([facility] V24, [facility] V28) DX:COPD (chronic o bstructive pulmonary disease) ([facility]) Emphysema lung ([facility] V24, [facility] V28) DX:Emphysema lung ([facility]) Diabetes mellitus ([facility] V 24, [facility] V28) DX:Diabetes mellitus ([facility]) Depression DX:Depression Anxiety DX:Anxiety Depression [...] Description 02/18/2025 8:30 AM EDT Office Visit [facility] [place] 175 [facility] [address] [place] [phone] Mayte Otto PA 175 [facility] [address] [place] [address] 04/11/2025 8:00 AM EDT Appointment [facility] [place] [address] [phone] Health Maintenance Due Date Last Done Comments [...] Creatinine (10/11/2024 8:08 AM EST) Pathologist [facility] Creatinine 1.04 0.70 - 1.30 mg/dL LAB CHEMISTRY METHOD 10/11/2024 10:23 AM EST [facility] eGFR 81 >=60 mL/min/1. 73m2 LAB CHEMISTRY METHOD 10/11/2024 10:23 AM EST [facility] Comment:Calculation based on the??Chronic Kidney Disease Epidemiology Collaboration (CKD-EPI) equation refit??without adjustment for race. Blood Venous blood specimen / Unknown Venipuncture / Unknown 10/11/2024 8:08 AM EST 10/11/2024 8:08 AM EST Result [facility] Mayte PAT LAB BLOOD ORDERABLES Final R esult [facility] [address] [place] [address], * (ABNORMAL) Hemoglobin A1c (08/15/2007) Pathologist [facility] Hemoglobin A1C 6.1(A) 4.0 - 6.0 % Blood Venous blood specimen / Unknown Result [facility] Historical Provider LAB BLOOD ORDERABLES Nelly l Result * (ABNORMAL) Lipid panel (08/15/2007) Pathologist [facility] LDL/HDL Ratio 6(A) 0 - 4 Triglycerides 311(A) 0 - 150 mg/dL Cholesterol 214(A) 0 - 200 mg/dL HDL 36(A) >=40 mg/dL LDL Cholesterol 116(A) 0 - 100 mg/dL Blood Venous blood specimen / Unknown Result [facility] Historical Provider LAB BLOOD ORDERABLES Nelly l Result * Hepatitis C Screening (10/19/2000) Pathologist [facility] Hepatitis C Screening abstracted Result [facility] Historical Provider HEALTH MAINTENANCE Final Result from Last 3 Months or Most Recently Relevant to Health Maintenance Insurance [employer] MEDICARE Member Subscriber Plan / Payer (Ef fective 2024-Present) Name:Tristan Au Relation to Subscriber:Self Name:Tristan Au Payer ID:[id number] Group ID:[id number] Type:Not on file Address: [place] [address] [place] [phone] Care Teams Business Office Technology Instructor Relationship Specialty Start Date End Date Josesito Rodriguez MD [address] [place] [address] PCP - General Internal Medicine 01/28/21
--- OUTSIDE RECORDS SUMMARY | 2025-02-13 14:01 | XMS_ITS | Clinical Summary ---
Author Organization [facility] Address [address] [place] [address] Care Team Providers Care Auditor/Quality Name Role Phone Josesito Rodriguez MD Primary Care Provider +1- [phone] Allergies No known active allergies Medications Medication [...] 0 08/26/2021 Active ergocalciferol (VITAMIN D2) capsule 17062 units Take 1 capsule (50,000 Units total) [...] age to complete this topic Care Teams Auditor/Quality Relationship Specialty Start Date End Date Josesito Rodriguez MD PCP - General Internal Medicine 01/28/21
--- OUTSIDE RECORDS SUMMARY | 2025-02-13 14:01 | XMS_ITS | Data Portability ---
Author Organization [facility], [place] in - [employer] Address [address] [place] [phone] Care Team Providers Care Printing Plate Setter Name Role Phone HIM CCA OTHER ELEN [...] SNOMED-CT Code Diagnosis ICD10 Code Diagnosis Note [id number] BETHANY ISAAC MD Main - instED [address] [place] [phone] 12/13/2024 18:40:09 12/13/2024 22:55:56 Ulcer of right foot due to type 2 diabetes mellitus [id number] E11.621 Evaluation in the field was performed by my elementary librarian colleague, as noted above, I provided real-time [...] performed in the current setting, and the elementary librarian team is BLS-certif ied (unable to establish a PIV or administer IV antibiotic s), the patient was strongly advised to go to the ED for further evaluation and management .-Attempte d to contact [facility] to provide a report but was [...] Flor Member ID Guarantor Name 12/13/2024 1 [facility] - DOS ON OR AFTER 2023 - DUAL ELIGIBLE - CARE HOME OPTIONS AND ONE CARE (MEDICARE REPLACEMENT/ADV ANTAGE - HMO) Tristan Au [id number] Tristan Au Notes Date Note Type Note [...] ..................... ..................... ..................... ..................... ..................... ..................... ............... Poultry Debeaker Note From Travis Day: Was dispatched for a 64 Y/O male complaining of an infection on his right foot. [facility] PT was in his living room. PT is A/Ox4. PT reported he had a blister that popped a week ago and it has festered since. PT vitals were obtained and an assessment was performed. Nothing remarkable was found upon completion of assessment. [facility] [place] [facility], [facility] told the PT he needs IV antibiotics due to the extent of the infection. PT understood. 911 was contacted, [facility] arrived on scene and transported the PT to [facility]. Crew cleared. ..................... ..................... ..................... ..................... ..................... ..................... ............... [facility] Consulted: Bethany Isaac ..................... ..................... ..................... ..................... ..................... ..................... ............... Disposition: Fulfilled BETHANY ISAAC MD [address] [facility],[address], [place], [address], ANNAMARIA MCKEE 12/13/2024 19:51:02
== END 2025-02-13 12:19 | disposition home or self-care (01) ==
LOC: HO.HMCFM 11:32
PROVIDERS: PCP Family Medicine; Visit Provider Family Medicine
DX: E11.65 Type 2 diabetes mellitus with hyperglycemia (principal); E78.00 Pure hypercholesterolemia, unspecified; F41.8 Other specified anxiety disorders

== ENCOUNTER → 2025-02-13 11:32 | Outpatient (BNVA) | payer OTHER, SELFPAY | PROVIDERS: PCP Family Medicine; Visit Provider Family Medicine | DX: E11.65 Type 2 diabetes mellitus with hyperglycemia (principal); E78.00 Pure hypercholesterolemia, unspecified; F41.8 Other specified anxiety disorders | CPT/HCPCS: 99212 ==

== ENCOUNTER 2025-03-28 10:12 | Outpatient (AMB) | payer OTHER, SELFPAY ==
--- NOTE | 2025-03-28 10:32 | MHC.PC.OV ---
Vital Signs 03/28/25 10:40 Height 6 ft Weight 195 lb 2 oz BMI 26.5 BP 128/62 Blood Pressure Location Rt brachial Position Sitting Respiration 16 Pulse 72 Pulse Source Pulse Oximeter Temp 97.2 F Temp Source Oral Pulse Oximetry (%) 100 Oxygen Delivery Method Room Air Intake Visit Reasons: f/u diabetes Intake Note: patient is scheduled for diabetes follow-up and say he had a blister on right foot and it popped and he said it must be infected. Allergies No Known Allergies [No Known Allergies*] Allergy (Verified 03/28/25 10:39) Medication List - Last Reconciled 03/28/25 by Christian Ac MD aripiprazole 15 mg PO DAILY 30 days atorvastatin 80 mg PO DAILY 90 days bupropion HCl XL 150 mg PO QAM 30 days clonazepam 0.5 mg PO DAILY 30 days dulaglutide (Trulicity) 0.75 mg (0.5 mL) subcut QWEEK 28 days fluoxetine 60 mg (3 x 20 mg) PO QAM 30 days insulin glargine (Lantus Solostar U-100 Insulin) 10 units (0.1 mL) subcut DAILY 30 days metformin 1,000 mg PO BID 90 days pantoprazole 40 mg PO DAILY 30 days pen needle, diabetic To treat Blood sugar once per day, As directed, 90 days umeclidinium-vilanterol 62.5-25 mcg/actuation (Anoro Ellipta) 1 inh inhalation Q24H 30 days Tobacco use date assessed: 03/28/25 Dental Screening Dental Screen Date: 03/28/25 Did you have a dental visit in the last 12 months?: No Did you have a dental problem in the last 6 months where you did not have access to dental care?: No Was dental information given to patient?: No HPI f/u diabetes HPI Details 64 y/o male presents to f/u uncontrolled diabetes. Pt had not been able to get his Trulicity. Had started him on Lantus 10 units. Previous lab work had shown blood sugar in the 400 range. Pt notes he is on metformin, Trulicity and Lantus now. A1c from 11.4 to 9.6%. Ongoing complaints of a foot ulcer. 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 HPI Comments History of Present Illness Details Documentation assistance for Christian Ac MD, was provided by Jose Manuel Carrizales? Straightening Press Operator Helper on 03/28/2025 at 11:17 AM EST. I, Dr. Ac, have read, observed, and verified documentation. ?? PFSH Medical History (Updated 03/28/25 @ 11:28 by Christian Ac MD) Depression with anxiety Diabetes Hypercholesteremia COPD (chronic obstructive pulmonary disease) Nicotine dependence, cigarettes, uncomplicated Imbalance Neuropathy Acid reflux Surgical History (Updated 01/04/25 @ 09:07 by Iesha Colby PA-C) No pertinent past surgical history Family History Mother Diabetes Cancer of kidney Father Diabetes Cardiovascular disease Social History (Updated 01/04/25 @ 09:07 by Iesha Colby PA-C) Housing: Other (mobile home) Alcohol intake: current Patient Tobacco Use Status: Current everyday Tobacco user Cigarette Packs Per Day: 1 Years Smoked: (onset 18yo, 1ppd x 46yrs, 45pyh) e-Cigarette/Vaping Use: Never Used Second Hand Smoke Exposure: No Substance Use Type: Marijuana service: Yes Current occupational status: disabled Cognitive needs: No Hearing needs: No Vision needs: Yes (glasses for close up) Questionnaire Thrive Questionnaire Date Thrive assessed: 03/28/25 I am a: Patient What is your living situation today?: I have a steady place to live Within the past 12 months, did the food you bought not last and you didn't have the money to get more?: Sometimes True Within the past 12 months, did you worry whether your food would run out before you got money to buy more?: Sometimes True Do you have trouble paying for medicines?: No Do you have trouble getting transportation to medical appointments?: Yes Do you have trouble paying your heating and electricity bill?: Yes Do you have trouble taking care of your child, family member or friend?: I choose not to answer this question Do you have trouble with day-to-day activities such as bathing, preparing meals, shopping, managing finances, etc.?: Yes Are you currently unemployed and looking for a job?: No Are you interested in more education?: No Please select the resources that you would like help with: Utilities Currently or been in a relationship where the following occur: I choose not to answer THRIVE Score: 4 OKSANA-7 AMB Questionnaire OKSANA-7 Date OKSANA - 7 assessed: 11/14/24 Source: Developed by Drs. Jose Story, Allison Mejia, Antoine Ray and colleagues, with an educational franca from [employer]. Review of Systems Const Denies chills, Denies fatigue, Denies fever(s), Denies headache(s) and Denies weakness ENT Denies dizziness and Denies headache(s) Card Denies dyspnea Resp Denies cough, Denies dyspnea, Denies wheezing and Denies other (shortness of breath) Musc Denies numbness and Denies tingling Neuro Denies dizziness, Denies headache(s), Denies numbness, Denies tingling and Denies weakness Psych Denies anxiety and Denies depression Endo Denies fatigue Aller/Immun Denies wheezing Physical exam (Primary Care) Vital Signs: Last Vital Signs Temp 97.2 F 03/28/25 10:40 Pulse 72 03/28/25 10:40 Resp 16 03/28/25 10:40 BP 128/62 03/28/25 10:40 Pulse Ox 100 03/28/25 10:40 Oxygen Delivery Method Room Air 03/28/25 10:40 BMI result Body Mass Index 26.5 Tobacco/Smoking Status: Tobacco use Status Tobacco use date assessed 03/28/25 03/28/25 10:46 Patient Tobacco Use Status Current everyday Tobacco 03/28/25 10:34 e-Cigarette/Vaping Use Never Used 03/28/25 10:34 Thrive Assessment: Date of Thrive Assessment Date Thrive assessed 03/28/25 03/28/25 10:46 Currently or been in a relationship where the following occur: I choose not to answer Const General: well developed; No acute distress Nutritional Appearance: well nourished Orientation/consciousness: patient oriented x3 HENMT Head: Yes normocephalic and Yes atraumatic Eyes General: appearance normal, both eyes and all related structures Pupils: Equal, round and reactive pupils present EOM: EOMs intact bilaterally Resp Effort & Inspection: normal respiratory effort Neuro General: patient oriented x3 and gait normal Cranial nerves: Yes Equal, round and reactive pupils present Extrem Other: R second toe abscess Psych Affect: normal affect Coding Level of Care Code Est Pt Level 3 (31587) Diagnoses Uncontrolled diabetes mellitus with hyperglycemia E11.65 Ulcer of right foot with fat layer exposed L97.512 Laterality: right Non-pressure ulcer stage: with fat layer exposed Assessment & Plan Assessment & Plan (1) Uncontrolled diabetes mellitus with hyperglycemia: Code(s): E11.65 - Type 2 diabetes mellitus with hyperglycemia Category: Medical Plan: A1c?now?9.6%.??Improving.??Goal?is?less?than?7% Lowest?blood?sugar?around?136 He?will?increase?Lantus?to?12?units?daily?for?1?week. Can?then?increase?Lantus?to?14?units?daily?if?tolerating?well?and?blood?sugars?are?not?low. Continue?Trulicity?and?metformin?as?prescribed (2) Foot ulcer: Code(s): L97.509 - Non-pressure chronic ulcer of other part of unspecified foot with unspecified severity Category: Medical Qualifiers: Laterality: right Non-pressure ulcer stage: with fat layer exposed Qualified Code(s): L97.512 - Non-pressure chronic ulcer of other part of right foot with fat layer exposed Plan: Abscess?and?ulceration?at?2nd?toe?on?right?foot Patient?notes?that?he?has?had?a?similar?infection?which?was?successfully?treated?with?cephalexin. Start?cephalexin Will?check?an?x-ray?to?rule?out?osteomyelitis. Will?call?patient?if?action?is?required Keep?foot?clean Will?follow-up?in?about?10?days Orders: Orders XR foot RT min 3V Today L02.611 - Cutaneous abscess of right foot Medications: Changed From cephalexin 500 mg PO QID 40 caps 0RF To cephalexin 500 mg PO QID 10 days 40 caps 0RF From insulin glargine (Lantus Solostar U-100 Insulin) 10 units (0.1 mL) subcut DAILY 30 days 3 mL 3RF To insulin glargine (Lantus Solostar U-100 Insulin) 14 units (0.14 mL) subcut DAILY 30 days 15 mL 3RF
[2025-03-28 10:40] VITALS: BP 128/62; PULSE 72; RESP 16; TEMP 36.2; O2SAT 100; BMI 26.5
== END 2025-03-28 11:28 | disposition home or self-care (01) ==
LOC: HO.HMCFM 10:13
PROVIDERS: PCP Family Medicine; Visit Provider Family Medicine
DX: E11.65 Type 2 diabetes mellitus with hyperglycemia (principal); L97.512 Non-pressure chronic ulcer of other part of right foot with fat layer exposed

== ENCOUNTER → 2025-03-28 10:12 | Outpatient (BNVA) | payer OTHER, SELFPAY | PROVIDERS: PCP Family Medicine; Visit Provider Family Medicine | DX: E11.65 Type 2 diabetes mellitus with hyperglycemia (principal); E11.621 Type 2 diabetes mellitus with foot ulcer; L97.512 Non-pressure chronic ulcer of other part of right foot with fat layer exposed; Z79.4 Long term (current) use of insulin; Z79.84 Long term (current) use of oral hypoglycemic drugs; Z79.85 Long-term (current) use of injectable non-insulin antidiabetic drugs | CPT/HCPCS: 83036; 99212 ==

== ENCOUNTER 2025-04-08 09:04 | Outpatient (REF) | payer OTHER, SELFPAY ==
--- NOTE | ~2025-04-08 | XR_ITS ---
EXAMINATION: XR FOOT 3 OR MORE VIEWS RIGHT HISTORY: L02.611 - Cutaneous abscess of right foot COMPARISON: There are no prior studies available for comparison. FINDINGS: Three views of the right foot are submitted. Osseous mineralization is normal. There are no lytic lesions. There is deformity of the proximal phalanx of the 5th toe which may be the result of old trauma. There is no acute fracture or dislocation. There is moderate degenerative change of the interphalangeal joint of the great toe with joint space narrowing and osteophyte formation. There is a prominent calcaneal spur at the insertion of the Achilles tendon.. The soft tissues are unremarkable. XR/XR foot RT min 3V IMPRESSION: No plain film evidence of osteomyelitis. If this remains a clinical concern, three-phase bone scan or MRI could be performed. Electronically signed by: Jose Watts MD 04/08/2025 09:45 AM EDT
--- OUTSIDE RECORDS SUMMARY | 2025-04-08 09:27 | XMS_ITS | Clinical Summary ---
Author Organization 175 [facility] Address [address] [place] [address] Phone Care Team Providers Care Leather Crafter Name Role Phone Josesito Rodriguez MD Primary Care Provider Allergies No known active allergies Medications atorvastatin (LIPITOR) 80 mg tablet Take 1 tablet (80 mg total) by mouth. Active dulaglutide (Trulicity) 3 mg/0.5 mL pen injector injection once a week. 08/26/2021 Active metFORMIN (GLUCOPHAGE) 1,000 mg tablet Take 1 tablet (1,000 mg total) by mouth 2 (two) times a day. Active Lantus Solostar U-100 Insulin 100 unit/mL (3 mL) injection pen Inject 10 Units under the skin 1 (one) time each day. 02/13/2025 Active topiramate (TOPAMAX) 50 mg tablet Take 1 tablet (50 mg total) by mouth 1 (one) time each day. 02/12/2025 Active LORazepam (Ativan) 0.5 mg tablet 1 po 1 hour prior to MRI, may repeat 1 at time of test if needed 5 tablet 02/18/2025 Active Active Problems Problem Noted Date Diagnosed Date Multiple sclerosis ([facility] V24, [facility] V28) Type 2 diabetes mellitus ([facility] V24, [facility] V 28) 03/26/2021 Alcohol abuse 08/15/2007 Tobacco use disorder 03/31/2006 Disturbance of skin sensation 11/30/2005 Pain in limb 11/30/2005 Anxiety state 11/25/2005 Infectious colitis, enteritis and gastroenteriti s 11/25/2005 Overview (10/12/2024): [facility] Depressive disorder 11/25/2005 Hyperlipidemia 11/25/2005 Encounters Date Type Department Care Team Description 04/01/2025 7:51 AM EDT - 04/01/2025 11:59 PM EDT Hospital Encounter [facility] [place] [address] [place] [phone] Multiple sclerosis ([facility] [place], [facility] V28) (Primary Dx); Vitamin D deficiency Discharge Disposition: Home or Self Care 02/18/2025 8:30 AM EDT Office Visit [facility] [place] [address] [place] [address] Mayte Otto PA MS (multiple sclerosis) ([facility] [place]24, [facility] V28) (Primary Dx) from Last 3 Months Immunizations Name Administration Dates Next Due [employer] SARS-CoV-2 COVID -19, vector-nr, rS-Ad26, preservative free 02/02/2021 Td, Unspecified 09/01/2005 Medical History Medical History Date Comments MS (multiple sclerosis) ([facility] V24, [facility] V28) DX:MS (multiple sclerosis) ( [facility]) COPD (chronic obstructive pu lmonary disease) ([facility] V24, [facility] V28) DX:COPD (chronic o bstructive pulmonary disease) ([facility]) Emphysema lung ([facility] V24, [facility] V28) DX:Emphysema lung ([facility]) Diabetes mellitus ([facility] V 24, [facility] V28) DX:Diabetes mellitus ([facility]) Depression DX:Depression Anxiety DX:Anxiety Depression DX:Depression Family [...] Sign Reading Time Taken Comments Blood Pressure 122/80 04/01/2025 11:02 AM EDT Pulse 78 04/01/2025 11:02 AM EDT Temperature 36 ??C (96.8 ??F) 04/01/2025 11:02 AM EDT Respiratory Rate 18 04/01/2025 11:02 AM EDT Oxygen Saturation 98% 04/01/2025 11:02 AM EDT Inhaled Oxygen Concentration - - Weight 86.6 kg (191 lb) 02/18/2025 8:29 AM EDT Height 182.9 cm (6') 02/18/2025 8:29 AM EDT Body Mass Index 25.9 02/18/2025 8:29 AM EDT Plan of Treatment Upcoming Encounters Date Type Department Care Team (Late st Contact Info) Description 06/24/2025 8:30 AM EDT Office Visit [facility] [place] [address] [phone] Hermila Quintanilla MD [address] [phone] 09/25/2025 8:00 AM EST Appointment [facility] [place] [facility] [place] [address] [phone] Health Maintenance Due Date Last Done Comments [...] 2022 Cholesterol Screening (Lipid Panel) 10/08/2022 08/15/2007 Colorectal Cancer Screening: Colonoscopy 10/08/2022 Depression Screening 10/08/2022 HIV Screening 10/08/2022 Medicare Annual Wellness Visit 10/08/2022 Social Influencers of Health Screening 10/08/2022 Diabetes: Annual Urine Albumin-Creatinine Ratio (uACR) 10/30/2022 Diabetes: Blood Sugar Contro l Test (HGBA1C) 10/30/2022 08/15/2007 COVID-19 Vaccine (3 - 2023-2 5 season) 2024 09/28/2021, 02/02/2021 Influenza Vaccine (Season Ended) 2025 Diabetes: Annual GFR (Glomerular Filtration Rate) 04/01/2026 04/01/2025, 10/11/2024, 08/15/2007 DTaP,Tdap,and Td Vaccines (4 - Td or Tdap) 11/07/2034 11/07/2024, 03/11/2016, 09/01/2005 Hepatitis C Screening Completed 10/19/2000 Colorectal Cancer Screening: FIT-DNA (Cologuard) Discontinued 04/01/2021, 04/01/2021 HIB Vaccines Aged Out No longer eligi [...] 20 months Aged Out No longer eligible based on patient's age to complete this topic Varicella Vaccines Aged Out No longer eligible based on patient's age to complete this topic Procedures Procedure Name Priority Date/Time Associated Diagnosis Comments CBC WITH AUTO DIFFERENTIAL Routine 04/01/2025 8:17 AM EDT Multiple sclerosis (CMS/HCC V24, CMS/HCC V28) CBC AND DIFFERENTIAL Routine 04/01/2025 8:17 AM EDT Multiple sclerosis (CMS/HCC V24, CMS/HCC V28) HEPATIC FUNCTION PANEL Routine 04/01/2025 8:17 AM EDT Multiple sclerosis (CMS/HCC V24, CMS/HCC V28) VITAMIN D 25 HYDROXY Routine 04/01/2025 8:17 AM EDT Multiple sclerosis (CMS/HCC V24, CMS/HCC V28) Vitamin D deficiency VITAMIN B12 Routine 04/01/2025 8:17 AM EDT Multiple sclerosis (CMS/HCC V24, CMS/HCC V28) CREATININE, SERUM Routine 04/01/2025 8:1 7 AM EDT Multiple sclerosis (CMS/HCC V24, CMS/HCC V28) BUN Routine 04/01/2025 8:17 AM EDT Multiple sclerosis (CMS/HCC V24, CMS/HCC V28) HEMOGLOBIN A1C Routine 08/15/2007 LIPID PANEL Routine 08/15/2007 HEPATITIS C SCREENING Routine 10/19/2000 from Last 3 Months or Most Recently Relevant to Health Maintenance Results * (ABNORMAL) CBC auto differential (04/01/2025 8:17 AM EDT) [facility] WBC 6.4 4.8 - 10.8 K/mcL LAB HEMETOLOGY METHOD 04/01/2025 10:00 AM [facility] RBC 4.10(L) 4.50 - 5.50 M/mcL LAB HEMETOLOGY METHOD 04/01/2025 10:00 AM [facility] Hemoglobin 12.7(L) 13.5 - 17.5 g/dL LAB HEMETOLOGY METHOD 04/01/2025 10:00 AM [facility] Hematocrit 38.5(L) 42.0 - 54.0 % LAB HEMETOLOGY METHOD 04/01/2025 10:00 AM [facility] MCV 93.4 79.0 - 98.0 FL LAB HEMETOLOGY METHOD 04/01/2025 10:00 AM [facility] MCH 30.8 27.0 - 32.0 pcg LAB HEMETOLOGY METHOD 04/01/2025 10:00 AM [facility] MCHC 33.0 32.0 - 37.0 g/dL LAB HEMETOLOGY METHOD 04/01/2025 10:00 AM [facility] RDW 13.1 11.0 - 15.0 % LAB HEMETOLOGY METHOD 04/01/2025 10:00 AM [facility] Platelets 352 130 - 400 K/mcL LAB HEMETOLOGY METHOD 04/01/2025 10:00 AM [facility] MPV 9.0 7.0 - 11.0 FL LAB HEMETOLOGY METHOD 04/01/2025 10:00 AM [facility] NRBC 0.0 <1.0 % LAB HEMETOLOGY METHOD 04/01/2025 10:00 AM [facility] NRBC Absolute 0.00 <0.10 K/mcL LAB HEMETOLOGY METHOD 04/01/2025 10:00 AM [facility] Neutrophils Relative 59.3 % LAB HEMETOLOGY METHOD 04/01/2025 10:00 AM [facility] Lymphocytes Relative 28.7 % LAB HEMETOLOGY METHOD 04/01/2025 10:00 AM [facility] Monocytes Relative 8.3 % LAB HEMETOLOGY METHOD 04/01/2025 10:00 AM [facility] Eosinophils Relative 2.5 % LAB HEMETOLOGY METHOD 04/01/2025 10:00 AM [facility] Basophils Relative 0.6 % LAB HEMETOLOGY METHOD 04/01/2025 10:00 AM [facility] Immature Granulocytes Relative 0.6 % LAB HEMETOLOGY METHOD 04/01/2025 10:00 AM EDT [facility] Neutrophils Absolute 3.77 1.50 - 7.00 K/[facility] LAB HEMETOLOGY METHOD 04/01/2025 10:00 AM EDT [facility] Lymphocytes Absolute 1.83 1.00 - 5.00 K/mcL LAB HEMETOLOGY METHOD 04/01/2025 10:00 AM EDT [facility] Monocytes Absolute 0.53 0.20 - 1.00 K/mcL LAB HEMETOLOGY METHOD 04/01/2025 10:00 AM EDT [facility] Eosinophils Absolute 0.16 0.00 - 0.50 K/mcL LAB HEMETOLOGY METHOD 04/01/2025 10:00 AM EDT [facility] Basophils Absolute 0.04 0.00 - 0.20 K/mcL LAB HEMETOLOGY METHOD 04/01/2025 10:00 AM EDT [facility] Immature Granulocytes Absolute 0.04(H) 0.00 - 0.03 K/mcL LAB HEMETOLOGY METHOD 04/01/2025 10:00 AM [facility] Blood Venous blood specimen / Unknown Venipuncture / Unknown 04/01/2025 8:17 AM EDT 04/01/2025 8:17 AM EDT us Mayet PAT LAB BLOOD ORDERABLES Final R esult [facility] [address] [place] [address], * Creatinine (04/01/2025 8:17 AM EDT) Creatinine 0.74 0.70 - 1.30 mg/dL LAB CHEMISTRY METHOD 04/01/2025 10:22 AM EDT [facility] eGFR 102 >=60 mL/min/1. 73m2 LAB CHEMISTRY METHOD 04/01/2025 10:22 AM EDT [facility] Comment:Calculation based on the Chronic Kidney Disease Epidemiology Collaboration (CKD-EPI) equation refit without adjustment for race. Blood Venous blood specimen / Unknown Venipuncture / Unknown 04/01/2025 8:17 AM EDT 04/01/2025 8:17 AM EDT Mayte L Panasci PA LAB BLOOD ORDERABLES Final R esult Performing Organization Address City/[facility]/ZIP Co de Phone Number [facility] [address] [place] [address], [place] [phone] * Vitamin D 25 hydroxy (04/01/2025 8:17 AM EDT) Vit D, 25-Hydroxy 34.7 30.0 - 80.0 ng/mL LAB CHEMISTRY METHOD 04/01/2025 11:20 AM EDT [facility] Blood Venous blood specimen / Unknown Venipuncture / Unknown 04/01/2025 8:17 AM EDT 04/01/2025 8:17 AM EDT Maytejuan Tuckeri PA LAB BLOOD ORDERABLES Final R esult Performing Organization Address City/[facility]/ZIP Co de Phone Number [facility] [address] [place] [address], [place] [phone] * BUN (04/01/2025 8:17 AM EDT) BUN 10 5 - 25 mg/dL LAB CHEMISTRY METHOD 04/01/2025 10:22 AM EDT [facility] Blood Venous blood specimen / Unknown Venipuncture / Unknown 04/01/2025 8:17 AM EDT 04/01/2025 8:17 AM EDT us Mayte PAT LAB BLOOD ORDERABLES Final R esult Performing Organization Address City/[facility]/ZIP Co de Phone Number [facility] [address] [place] [address], * Vitamin B12 (04/01/2025 8:17 AM EDT) [facility] Vitamin B-12 435 250 - 900 pcg/mL LAB CHEMISTRY METHOD 04/01/2025 10:46 AM EDT [facility] Blood Venous blood specimen / Unknown Venipuncture / Unknown 04/01/2025 8:17 AM EDT 04/01/2025 8:17 AM EDT Mayte PAT LAB BLOOD ORDERABLES Final R esult Performing Organization Address [facility]/ZIP Co de Phone Number [facility] [address] [place] [address], [place] [phone] * (ABNORMAL) Hepatic function panel (04/01/2025 8:17 AM EDT) [facility] Total Protein 6.9 6.0 - 8.0 g/dL LAB CHEMISTRY METHOD 04/01/2025 10:22 AM EDT [facility] Albumin 3.6 3.2 - 5.0 g/dL LAB CHEMISTRY METHOD 04/01/2025 10:22 AM EDT [facility] Total Bilirubin 0.3 0.0 - 1.4 mg/dL LAB CHEMISTRY METHOD 04/01/2025 10:22 AM T [facility] Bilirubin, Direct 0.1 0.0 - 0.3 mg/dL LAB CHEMISTRY METHOD 04/01/2025 10:22 AM EDT [facility] Bilirubin, Indirect 0.2 0.0 - 1.1 mg/dL LAB CHEMISTRY METHOD 04/01/2025 10:22 AM [facility] ALT (SGPT) 23 10 - 60 unit/L LAB CHEMISTRY METHOD 04/01/2025 10:22 AM EDT [facility] AST (SGOT) 10 10 - 42 unit/L LAB CHEMISTRY METHOD 04/01/2025 10:22 AM EDT [facility] Alkaline Phosphatase 130(H) 42 - 121 unit/L LAB CHEMISTRY METHOD 04/01/2025 10:22 AM EDT [facility] Blood Venous blood specimen / Unknown Venipuncture / Unknown 04/01/2025 8:17 AM EDT 04/01/2025 8:17 AM EDT Mayte PAT LAB BLOOD ORDERABLES Final R esult [facility] [address] [place] [address], * (ABNORMAL) Hemoglobin A1c (08/15/2007) Pathologist [facility] Hemoglobin A1C 6.1(A) 4.0 - 6.0 % Blood Venous blood specimen / Unknown Historical Provider LAB BLOOD ORDERABLES Nelly l Result * (ABNORMAL) Lipid panel (08/15/2007) Pathologist [facility] LDL/HDL Ratio 6(A) 0 - 4 Triglycerides 311(A) 0 - 150 mg/dL Cholesterol 214(A) 0 - 200 mg/dL HDL 36(A) >=40 mg/dL LDL Cholesterol 116(A) 0 - 100 mg/dL Blood Venous blood specimen / Unknown Historical Provider LAB BLOOD ORDERABLES Nelly l Result * Hepatitis C Screening (10/19/2000) Pathologist [facility] Hepatitis C Screening abstracted Historical Provider HEALTH MAINTENANCE Final Result from Last 3 Months or Most Recently Relevant to Health Maintenance Insurance [employer] Member Subscriber Plan / Payer (Ef fective 2024-Present) Name:MEGHAN AU Relation to Subscriber:Self Name:Meghan Au Payer ID:[id number] Group ID:[id number] Type:Not on file Address: [place] [address] Care Teams Leather Crafter Relationship Specialty Start Date End Date Josesito Rodriguez MD [address] [place] [address] PCP - General Internal Medicine 01/28/21
== END 2025-04-08 09:05 | disposition home or self-care (01) ==
LOC: HO.XRAY 09:04
PROVIDERS: PCP Family Medicine; Visit Provider Family Medicine
DX: L02.611 Cutaneous abscess of right foot (principal)
CPT/HCPCS: 73630

== ENCOUNTER → 2025-04-08 09:10 | Outpatient (BNV) | payer OTHER, SELFPAY | PROVIDERS: PCP Family Medicine; Visit Provider Radiology Diagnostic Radiology | DX: M25.774 Osteophyte, right foot (principal) | CPT/HCPCS: 73630 ==

== ENCOUNTER 2025-04-11 10:20 | Outpatient (AMB) | payer OTHER, SELFPAY ==
--- NOTE | 2025-04-11 10:41 | MHC.PC.OV ---
Vital Signs 04/11/25 10:44 Height 6 ft Weight 187 lb 8 oz BMI 25.4 BP 110/60 Blood Pressure Location Lt brachial Position Sitting Respiration 14 Pulse 103 H Pulse Source Pulse Oximeter Temp 97.8 F Temp Source Oral Pulse Oximetry (%) 97 Oxygen Delivery Method Room Air Intake Visit Reasons: f/u ulcer Intake Note: follow up on right index toe Assistant Brand Manager Required: No Allergies No Known Allergies [No Known Allergies*] Allergy (Verified 04/11/25 10:42) Medication List - Last Reconciled 04/11/25 by Christian Ac MD aripiprazole 15 mg PO DAILY 30 days atorvastatin 80 mg PO DAILY 90 days blood sugar diagnostic (FreeStyle Lite Strips) DX: E11.9, test blood sugar 2 times a day, 90 days blood-glucose meter (FreeStyle Lite Meter kit) DX: E11.9, test blood sugar 2 times a day, duration 999 days bupropion HCl XL 150 mg PO QAM 30 days cephalexin 500 mg PO QID 10 days clonazepam 0.5 mg PO DAILY 30 days dulaglutide (Trulicity) 0.75 mg (0.5 mL) subcut QWEEK 28 days fluoxetine 60 mg (3 x 20 mg) PO QAM 30 days insulin glargine (Lantus Solostar U-100 Insulin) 14 units (0.14 mL) subcut DAILY 30 days lancets (FreeStyle Lancets) As directed, 90 days metformin 1,000 mg PO BID 90 days pen needle, diabetic To treat Blood sugar once per day, As directed, 90 days umeclidinium-vilanterol 62.5-25 mcg/actuation (Anoro Ellipta) 1 inh inhalation Q24H 30 days Tobacco use date assessed: 03/28/25 Dental Screening Dental Screen Date: 03/28/25 HPI f/u ulcer HPI Details 64 y/o male presents to f/u abscess, R 2nd toe. Had started him on cephalexin. Checking x-ray to rule out osteomyelitis. Recommended him to keep foot clean. Foot x-ray 04/08/25 showed no plain film evidence of osteomyelitis. Has been keeping his foot clean. Was prescribed cephalexin 500mg qid but pt notes he has only been taking it once a day. Pt notes foot improving. Denies any problems with his Lantus 14 units. He has not been testing his blood sugars. HPI Comments History of Present Illness Details Documentation assistance for Christian Ac MD, was provided by Jose Manuel Carrizales,? Teletype Or [employer] Keyboard Operator on 04/11/2025 at 11:30 AM EST. I, Dr. Ac, have read, observed, and verified documentation. ? PFSH Medical History (Updated 03/28/25 @ 11:28 by Christian Ac MD) Depression with anxiety Diabetes Hypercholesteremia COPD (chronic obstructive pulmonary disease) Nicotine dependence, cigarettes, uncomplicated Imbalance Neuropathy Acid reflux Surgical History (Updated 01/04/25 @ 09:07 by Iesha Colby PA-C) No pertinent past surgical history Family History Mother Diabetes Cancer of kidney Father Diabetes Cardiovascular disease Social History (Updated 01/04/25 @ 09:07 by Iesha Colby PA-C) Housing: Other (mobile home) Alcohol intake: current Patient Tobacco Use Status: Current everyday Tobacco user Cigarette Packs Per Day: 1 Years Smoked: (onset 18yo, 1ppd x 46yrs, 45pyh) e-Cigarette/Vaping Use: Never Used Second Hand Smoke Exposure: No Substance Use Type: Marijuana service: Yes Current occupational status: disabled Cognitive needs: No Hearing needs: No Vision needs: Yes (glasses for close up) Questionnaire Thrive Questionnaire Date Thrive assessed: 12/14/24 I am a: Patient What is your living situation today?: I have a steady place to live Within the past 12 months, did the food you bought not last and you didn't have the money to get more?: Sometimes True Within the past 12 months, did you worry whether your food would run out before you got money to buy more?: Sometimes True Do you have trouble paying for medicines?: No Do you have trouble getting transportation to medical appointments?: Yes Do you have trouble paying your heating and electricity bill?: Yes Do you have trouble taking care of your child, family member or friend?: I choose not to answer this question Do you have trouble with day-to-day activities such as bathing, preparing meals, shopping, managing finances, etc.?: Yes Are you currently unemployed and looking for a job?: No Are you interested in more education?: No Please select the resources that you would like help with: Utilities Currently or been in a relationship where the following occur: I choose not to answer THRIVE Score: 4 OKSANA-7 AMB Questionnaire OKSANA-7 Date OKSANA - 7 assessed: 11/14/24 Source: Developed by Drs. Jose Story, Allison Mejia, Antoine Ray and colleagues, with an educational franca from [employer]. Review of Systems Const Denies chills, Denies fatigue, Denies fever(s), Denies headache(s) and Denies weakness ENT Denies dizziness and Denies headache(s) Card Denies dyspnea Resp Denies cough, Denies dyspnea, Denies wheezing and Denies other (shortness of breath) Musc Denies numbness and Denies tingling Neuro Denies dizziness, Denies headache(s), Denies numbness, Denies tingling and Denies weakness Psych Denies anxiety and Denies depression Endo Denies fatigue Aller/Immun Denies wheezing Physical exam (Primary Care) Vital Signs: Last Vital Signs Temp 97.8 F 04/11/25 10:44 Pulse 103 H 04/11/25 10:44 Resp 14 04/11/25 10:44 BP 110/60 04/11/25 10:44 Pulse Ox 97 04/11/25 10:44 Oxygen Delivery Method Room Air 04/11/25 10:44 BMI result Body Mass Index 25.4 Tobacco/Smoking Status: Tobacco use Status Tobacco use date assessed 03/28/25 04/11/25 10:47 Patient Tobacco Use Status Current everyday Tobacco 04/11/25 10:47 e-Cigarette/Vaping Use Never Used 04/11/25 10:47 Thrive Assessment: Date of Thrive Assessment Date Thrive assessed 12/14/24 04/11/25 10:47 Currently or been in a relationship where the following occur: I choose not to answer Const General: well developed; No acute distress Nutritional Appearance: well nourished Orientation/consciousness: patient oriented x3 HENMT Head: Yes normocephalic and Yes atraumatic Eyes General: appearance normal, both eyes and all related structures Pupils: Equal, round and reactive pupils present EOM: EOMs intact bilaterally Resp Effort & Inspection: normal respiratory effort Neuro General: patient oriented x3 and gait normal Cranial nerves: Yes Equal, round and reactive pupils present Psych Affect: normal affect Coding Level of Care Code Est Pt Level 4 (52895) Diagnoses Abscess of toe of right foot L02.611 Ulcer of right foot with fat layer exposed L97.512 Laterality: right Non-pressure ulcer stage: with fat layer exposed Diabetes E11.9 Assessment & Plan Assessment & Plan (1) Abscess of toe of right foot: Code(s): L02.611 - Cutaneous abscess of right foot Category: Medical Plan: Follow-up?of?abscess?of?right?2nd?toe This?is?looking?significantly?better?despite?the?fact?that?patient?was?only?taking?cephalexin?once?per?day?and?was?prescribed?as?4?times?per?day. At?this?point,?I?will?have?him?continue?his?antibiotic?treatment?as?twice?per?day. He?will?finish?all?the?antibiotic?and?I?will?follow-up?with?him?in?12-14?days. Still?has?open?wound Patient?also?has?not?been?keeping?wound?covered and?is wearing rather dirty sock. He?will?keep?covered?with?a?bandage?with?triple?antibiotic. If?wound?is?not?improving?when?I?see?him?next, will?refer?him?to?wound?care (2) Foot ulcer: Code(s): L97.509 - Non-pressure chronic ulcer of other part of unspecified foot with unspecified severity Category: Medical Qualifiers: Laterality: right Non-pressure ulcer stage: with fat layer exposed Qualified Code(s): L97.512 - Non-pressure chronic ulcer of other part of right foot with fat layer exposed Plan: As?above (3) Diabetes: Code(s): E11.9 - Type 2 diabetes mellitus without complications Category: Medical Plan: Patient?has?increased?his?Lantus?to?12?units?per?day?and?then?to?14?units?per?day. Tolerating?this?well?but?not?testing?his?blood?sugars Will?send?script?to?ensure?he?has?testing?supplies Encouraged?him?to?test?blood?sugars We?can?discuss?this?at?his?next?visit Medications: New blood-glucose meter (FreeStyle Lite Meter kit) DX: E11.9, test blood sugar 2 times a day, duration 999 days 1 ea 0RF E11.9 - Type 2 diabetes mellitus without complications lancets (FreeStyle Lancets) As directed, 90 days 200 ea 4RF DX: E11.9, test blood sugar 2 times a day, 90 day E11.9 - Type 2 diabetes mellitus without complications blood sugar diagnostic (FreeStyle Lite Strips) DX: E11.9, test blood sugar 2 times a day, 90 days 200 ea 4RF E11.9 - Type 2 diabetes mellitus without complications
[2025-04-11 10:44] VITALS: BP 110/60; PULSE 103; RESP 14; TEMP 36.6; O2SAT 97; BMI 25.4
--- OUTSIDE RECORDS SUMMARY | 2025-04-11 12:00 | XMS_ITS | Clinical Summary ---
Author Organization 175 [facility] Address [address] [place] [address] Phone Care Team Providers Care Nurse Unit Manager Name Role Phone Josesito Rodriguez MD Primary [...] Problem Noted Date Diagnosed Date Multiple sclerosis ([facility] V24, [facility] V28) Type 2 diabetes mellitus ([facility] V24, [facility] V 28) 03/26/2021 Alcohol abuse 08/15/2007 Tobacco use disorder 03/31/2006 Disturbance of skin sensation 11/30/2005 Pain in limb 11/30/2005 Anxiety state 11/25/2005 Infectious colitis, enteritis and gastroenteriti s 11/25/2005 Overview (10/12/2024): [facility] Depressive disorder 11/25/2005 Hyperlipidemia 11/25/2005 Encounters Date Type Department Care Team Description 04/01/2025 7:51 AM EDT - 04/01/2025 11:59 PM EDT Hospital Encounter Outpatient Rehabilititation - [place] [address] [facility] [address] [place] [phone] Multiple sclerosis ([facility] V24, [facility] V28) (Primary Dx); Vitamin D deficiency Discharge Disposition: Home or Self Care 02/18/2025 8:30 AM EDT Office Visit - [place] [address] [facility] [address] [place] [address] Mayte Otto PA MS (multiple sclerosis) ([facility] V24, [facility] V28) (Primary Dx) from Last 3 Months Immunizations Name Administration Dates Next Due [employer] SARS-CoV-2 COVID -19, vector-nr, rS-Ad26, preservative free 02/02/2021 Td, Unspecified 09/01/2005 Medical History Medical History Date Comments MS (multiple sclerosis) ([facility] V24, [facility] V28) DX:MS (multiple sclerosis) ( [facility]) COPD (chronic obstructive pu lmonary disease) ([facility] V24, [facility] V28) DX:COPD (chronic o bstructive pulmonary disease) ([facility]) Emphysema lung ([facility] V24, [facility] V28) DX:Emphysema lung ([facility]) Diabetes mellitus ([facility] V 24, [facility] V28) DX:Diabetes mellitus ([facility]) Depression DX:Depression Anxiety DX:Anxiety Depression [...] Description 06/24/2025 8:30 AM EDT Office Visit [facility] [place] [address] [address] Hermila Quintanilla MD [address] [phone] 09/25/2025 8:00 AM EST Appointment [facility] [place] Outpatient Rehabilititation - [place] [address] [phone] Health Maintenance Due Date Last Done Comments [...] CBC auto differential (04/01/2025 8:17 AM EDT) [facility] WBC 6.4 4.8 - 10.8 K/mcL LAB HEMETOLOGY METHOD 04/01/2025 10:00 AM [facility] RBC 4.10(L) 4.50 - 5.50 M/mcL LAB HEMETOLOGY METHOD 04/01/2025 10:00 AM [facility] Hemoglobin 12.7(L) 13.5 - 17.5 g/dL LAB HEMETOLOGY METHOD 04/01/2025 10:00 AM [facility] Hematocrit 38.5(L) 42.0 - 54.0 % LAB HEMETOLOGY METHOD 04/01/2025 10:00 AM [facility] MCV 93.4 79.0 - 98.0 FL LAB HEMETOLOGY METHOD 04/01/2025 10:00 AM [facility] MCH 30.8 27.0 - 32.0 pcg LAB HEMETOLOGY METHOD 04/01/2025 10:00 AM [facility] MCHC 33.0 32.0 - 37.0 g/dL LAB HEMETOLOGY METHOD 04/01/2025 10:00 AM [facility] RDW 13.1 11.0 - 15.0 % LAB HEMETOLOGY METHOD 04/01/2025 10:00 AM [facility] Platelets 352 130 - 400 K/mcL LAB HEMETOLOGY METHOD 04/01/2025 10:00 AM [facility] MPV 9.0 7.0 - 11.0 FL LAB HEMETOLOGY METHOD 04/01/2025 10:00 AM [facility] NRBC 0.0 <1.0 % LAB HEMETOLOGY METHOD 04/01/2025 10:00 AM [facility] NRBC Absolute 0.00 <0.10 K/mcL LAB HEMETOLOGY METHOD 04/01/2025 10:00 AM [facility] Neutrophils Relative 59.3 % LAB HEMETOLOGY METHOD 04/01/2025 10:00 AM [facility] Lymphocytes Relative 28.7 % LAB HEMETOLOGY METHOD 04/01/2025 10:00 AM [facility] Monocytes Relative 8.3 % LAB HEMETOLOGY METHOD 04/01/2025 10:00 AM [facility] Eosinophils Relative 2.5 % LAB HEMETOLOGY METHOD 04/01/2025 10:00 AM [facility] Basophils Relative 0.6 % LAB HEMETOLOGY METHOD 04/01/2025 10:00 AM [facility] Immature Granulocytes Relative 0.6 % LAB HEMETOLOGY METHOD 04/01/2025 10:00 AM EDT [facility] Neutrophils Absolute 3.77 1.50 - 7.00 K/[facility] LAB HEMETOLOGY METHOD 04/01/2025 10:00 AM EDT [facility] Lymphocytes Absolute 1.83 1.00 - 5.00 K/mcL LAB HEMETOLOGY METHOD 04/01/2025 10:00 AM EDT [facility] Monocytes Absolute 0.53 0.20 - 1.00 K/mcL LAB HEMETOLOGY METHOD 04/01/2025 10:00 AM EDT [facility] Eosinophils Absolute 0.16 0.00 - 0.50 K/mcL LAB HEMETOLOGY METHOD 04/01/2025 10:00 AM EDT [facility] Basophils Absolute 0.04 0.00 - 0.20 K/mcL LAB HEMETOLOGY METHOD 04/01/2025 10:00 AM EDT [facility] Immature Granulocytes Absolute 0.04(H) 0.00 - 0.03 K/mcL LAB HEMETOLOGY METHOD 04/01/2025 10:00 AM [facility] Blood Venous blood specimen / Unknown Venipuncture / Unknown 04/01/2025 8:17 AM EDT 04/01/2025 8:17 AM EDT us Mayte PAT LAB BLOOD ORDERABLES Final R esult [facility] [address] [place] [address], * Creatinine (04/01/2025 8:17 AM EDT) Creatinine 0.74 0.70 - 1.30 mg/dL LAB CHEMISTRY METHOD 04/01/2025 10:22 AM EDT [facility] eGFR 102 >=60 mL/min/1. 73m2 LAB CHEMISTRY METHOD 04/01/2025 10:22 AM EDT [facility] Comment:Calculation based on the Chronic Kidney Disease Epidemiology Collaboration (CKD-EPI) equation refit without adjustment for race. Blood Venous blood specimen / Unknown Venipuncture / Unknown 04/01/2025 8:17 AM EDT 04/01/2025 8:17 AM EDT Mayte L Panasci PA LAB BLOOD ORDERABLES Final R esult Performing Organization Address City/[facility]/ZIP Co de Phone Number [facility] [address] [place] [address], [place] [phone] * Vitamin D 25 hydroxy (04/01/2025 8:17 AM EDT) Vit D, 25-Hydroxy 34.7 30.0 - 80.0 ng/mL LAB CHEMISTRY METHOD 04/01/2025 11:20 AM EDT [facility] Blood Venous blood specimen / Unknown Venipuncture / Unknown 04/01/2025 8:17 AM EDT 04/01/2025 8:17 AM EDT Maytejuan Tuckeri PA LAB BLOOD ORDERABLES Final R esult Performing Organization Address City/[facility]/ZIP Co de Phone Number [facility] [address] [place] [address], [place] [phone] * BUN (04/01/2025 8:17 AM EDT) BUN 10 5 - 25 mg/dL LAB CHEMISTRY METHOD 04/01/2025 10:22 AM EDT [facility] Blood Venous blood specimen / Unknown Venipuncture / Unknown 04/01/2025 8:17 AM EDT 04/01/2025 8:17 AM EDT us Mayte PAT LAB BLOOD ORDERABLES Final R esult Performing Organization Address City/[facility]/ZIP Co de Phone Number [facility] [address] [place] [address], * Vitamin B12 (04/01/2025 8:17 AM EDT) [facility] Vitamin B-12 435 250 - 900 pcg/mL LAB CHEMISTRY METHOD 04/01/2025 10:46 AM EDT [facility] Blood Venous blood specimen / Unknown Venipuncture / Unknown 04/01/2025 8:17 AM EDT 04/01/2025 8:17 AM EDT Mayte PAT LAB BLOOD ORDERABLES Final R esult Performing Organization Address [facility]/ZIP Co de Phone Number [facility] [address] [place] [address], [place] [phone] * (ABNORMAL) Hepatic function panel (04/01/2025 8:17 AM EDT) [facility] Total Protein 6.9 6.0 - 8.0 g/dL LAB CHEMISTRY METHOD 04/01/2025 10:22 AM EDT [facility] Albumin 3.6 3.2 - 5.0 g/dL LAB CHEMISTRY METHOD 04/01/2025 10:22 AM EDT [facility] Total Bilirubin 0.3 0.0 - 1.4 mg/dL LAB CHEMISTRY METHOD 04/01/2025 10:22 AM T [facility] Bilirubin, Direct 0.1 0.0 - 0.3 mg/dL LAB CHEMISTRY METHOD 04/01/2025 10:22 AM EDT [facility] Bilirubin, Indirect 0.2 0.0 - 1.1 mg/dL LAB CHEMISTRY METHOD 04/01/2025 10:22 AM [facility] ALT (SGPT) 23 10 - 60 unit/L LAB CHEMISTRY METHOD 04/01/2025 10:22 AM EDT [facility] AST (SGOT) 10 10 - 42 unit/L LAB CHEMISTRY METHOD 04/01/2025 10:22 AM EDT [facility] Alkaline Phosphatase 130(H) 42 - 121 unit/L LAB CHEMISTRY METHOD 04/01/2025 10:22 AM EDT [facility] Blood Venous blood specimen / Unknown Venipuncture / Unknown 04/01/2025 8:17 AM EDT 04/01/2025 8:17 AM EDT Mayte PAT LAB BLOOD ORDERABLES Final R esult [facility] [address] [place] [address], * (ABNORMAL) Hemoglobin A1c (08/15/2007) Pathologist [facility] Hemoglobin A1C 6.1(A) 4.0 - 6.0 % Blood Venous blood specimen / Unknown Historical Provider LAB BLOOD ORDERABLES Nelly l Result * (ABNORMAL) Lipid panel (08/15/2007) Pathologist [facility] [place] LDL/HDL Ratio 6(A) 0 - 4 Triglycerides 311(A) 0 - 150 mg/dL Cholesterol 214(A) 0 - 200 mg/dL HDL 36(A) >=40 mg/dL LDL Cholesterol 116(A) 0 - 100 mg/dL Blood Venous blood specimen / Unknown Historical Provider LAB BLOOD ORDERABLES Nelly l Result * Hepatitis C Screening (10/19/2000) Pathologist [facility] Hepatitis C Screening abstracted Historical Provider HEALTH MAINTENANCE Final Result from Last 3 Months or Most Recently Relevant to Health Maintenance Insurance [employer] Member Subscriber Plan / Payer (Ef fective 2024-Present) Name:MEGHAN AU Relation to Subscriber:Self Name:Meghan Au Payer ID:[id number] Group ID:[id number] Type:Not on file Address: [place] [facility] [place] [address] Care Teams Nurse Unit Manager Relationship Specialty Start Date End Date Josesito Rodriguez MD [address] [place] [address] PCP - General Internal Medicine 01/28/21
== END 2025-04-11 11:58 | disposition home or self-care (01) ==
LOC: HO.HMCFM 10:21
PROVIDERS: PCP Family Medicine; Visit Provider Family Medicine
DX: E11.621 Type 2 diabetes mellitus with foot ulcer (principal); L97.512 Non-pressure chronic ulcer of other part of right foot with fat layer exposed; L02.611 Cutaneous abscess of right foot

== ENCOUNTER → 2025-04-11 10:20 | Outpatient (BNVA) | payer OTHER, SELFPAY | PROVIDERS: PCP Family Medicine; Visit Provider Family Medicine | DX: E11.621 Type 2 diabetes mellitus with foot ulcer (principal); L97.512 Non-pressure chronic ulcer of other part of right foot with fat layer exposed; L02.611 Cutaneous abscess of right foot; Z79.4 Long term (current) use of insulin | CPT/HCPCS: 99212 ==

== ENCOUNTER 2025-04-30 10:50 | Outpatient (AMB) | payer OTHER, SELFPAY ==
--- NOTE | 2025-04-30 11:12 | A.OFFPC_ITS ---
Vital Signs 04/30/25 11:14 Height 6 ft Weight 186 lb 4 oz BMI 25.3 BP 90/60 Blood Pressure Location Lt brachial Position Sitting Respiration 14 Pulse 87 Pulse Source Pulse Oximeter Temp 98.2 F Temp Source Oral Pulse Oximetry (%) 98 Oxygen Delivery Method Room Air Intake Visit Reasons: f/u ulcer Intake Note: patient is scheduled for foot ulcer follow up Paper Tube Cutter Required: No Allergies No Known Allergies (No Known Allergies*) Allergy (Verified 04/30/25 11:12) Medication List - Last Reconciled 04/30/25 by Christian Ac MD aripiprazole 15 mg PO DAILY 30 days atorvastatin 80 mg PO DAILY 90 days blood sugar diagnostic (FreeStyle Lite Strips) DX: E11.9, test blood sugar 2 times a day, 90 days blood-glucose meter (FreeStyle Lite Meter kit) DX: E11.9, test blood sugar 2 times a day, duration 999 days bupropion HCl XL 150 mg PO QAM 30 days clonazepam 0.5 mg PO DAILY 30 days dulaglutide (Trulicity) 0.75 mg (0.5 mL) subcut QWEEK 28 days fluoxetine 60 mg (3 x 20 mg) PO QAM 30 days insulin glargine (Lantus Solostar U-100 Insulin) 14 units (0.14 mL) subcut DAILY 30 days lancets (FreeStyle Lancets) As directed, 90 days metformin 1,000 mg PO BID 90 days pen needle, diabetic To treat Blood sugar once per day, As directed, 90 days umeclidinium-vilanterol 62.5-25 mcg/actuation (Anoro Ellipta) 1 inh inhalation Q24H 30 days Tobacco use date assessed: 03/28/25 Dental Screening Dental Screen Date: 03/28/25 HPI f/u ulcer HPI Details 64 y/o male presents to f/u R 2nd toe a bscess and wound. Continued antiobiotic therapy. Ulcer has healed but does have a small callus. Reports morning blood sugars in the 120s. He is on Lantus 14 units, Trulicity, metformin. A1c had been 11.4% in January, 9.6% in February. Has a diabetic eye exam scheduled. HPI Comments History of Present Illness Details Documentation assistance for Christian Ac MD, was provided by Jose Manuel Carrizales,? Threshing Department Supervisor on 04/30/2025 at 11:50 AM EST. I, Dr. Ac, have read, observed, and verified documentation. ?? [facility] Medical History (Updated 03/28/25 @ 11:28 by Christian Ac MD) Depression with anxiety Diabetes Hypercholesteremia COPD (chronic obstructive pulmonary disease) Nicotine dependence, cigarettes, uncomplicated Imbalance Neuropathy Acid reflux Surgical History (Updated 01/04/25 @ 09:07 by Iesha Colby PA-C) No pertinent past surgical history Family History Mother Diabetes Cancer of kidney Father Diabetes Cardiovascular disease Social History (Updated 01/04/25 @ 09:07 by Iesha Colby PA-C) Housing: Other (mobile home) Alcohol intake: current Patient Tobacco Use Status: Current everyday Tobacco user Cigarette Packs Per Day: 1 Years Smoked: (onset 18yo, 1ppd x 46yrs, 45pyh) e-Cigarette/Vaping Use: Never Used Second Hand Smoke Exposure: No Substance Use Type: Marijuana service: Yes Current occupational status: disabled Cognitive needs: No Hearing needs: No Vision needs: Yes (glasses for close up) Questionnaire Thrive Questionnaire Date Thrive assessed: 12/14/24 I am a: Patient What is your living situation today?: I have a steady place to live Within the past 12 months, did the food you bought not last and you didn't have the money to get more?: Sometimes True Within the past 12 months, did you worry whether your food would run out before you got money to buy more?: Sometimes True Do you have trouble paying for medicines?: No Do you have trouble getting transportation to medical appointments?: Yes Do you have trouble paying your heating and electricity bill?: Yes Do you have trouble taking care of your child, family member or friend?: I choose not to answer this question Do you have trouble with day-to-day activities such as bathing, preparing meals, shopping, managing finances, etc.?: Yes Are you currently unemployed and looking for a job?: No Are you interested in more education?: No Please select the resources that you would like help with: Utilities Currently or been in a relationship where the following occur: I choose not to answer THRIVE Score: 4 KOSANA-7 AMB Questionnaire OKSANA-7 Date OKSANA - 7 assessed: 11/14/24 Source: Developed by Drs. Jose Story, Allison Mejia, Antoine Ray and colleagues, with an educational franca from [employer]. Review of Systems Const Denies chills, Denies fatigue, Denies fever(s), Denies headache(s) and Denies weakness ENT Denies dizziness and Denies headache(s) Card Denies chest pain, Denies lightheadedness, Denies dyspnea and Denies other (Palpitations) Resp Denies cough, Denies dyspnea, Denies wheezing and Denies other ( shortness of breath) Musc Denies numbness and Denies tingling Neuro Denies dizziness, Denies headache(s), Denies numbness, Denies tingling, Denies paresthesias and Denies weakness Psych Denies anxiety and Denies depression Endo Denies fatigue Aller/Immun Denies wheezing Physical exam (Primary Care) Vital Signs: Last Vital Signs Temp 98.2 F 04/30/25 11:14 Pulse 87 04/30/25 11:14 Resp 14 04/30/25 11:14 BP 90/60 04/30/25 11:14 Pulse Ox 98 04/30/25 11:14 Oxygen Delivery Method Room Air 04/30/25 11:14 BMI result Body Mass Index 25.3 Tobacco/Smoking Status: Tobacco use Status Tobacco use date assessed 03/28/25 04/30/25 11:17 Patient Tobacco Use Status Current everyday Tobacco 04/30/25 11:17 e-Cigarette/Vaping Use Never Used 04/30/25 11:17 Thrive Assessment: Date of Thrive Assessment Date Thrive assessed 12/14/24 04/30/25 11:17 Currently or been in a relationship where the following occur: I choose not to answer Const General: no acute distress and well developed Nutritional Appearance: well nourished Orientation/consciousness: patient oriented x3 HENMT Head: Yes normocephalic and Yes atraumatic Eyes General: appearance normal, both eyes and all related structures Pupils: Equal, round and reactive pupils present EOM: EOMs intact bilaterally Resp Effort & Inspection: normal respiratory effort Auscultation: clear to auscultation bilaterally Cardio Rate: regular rate Rhythm: regular rhythm Heart sounds: S1 normal heart sound present, S2 normal heart sound present, no gallops, no murmurs and no rubs Neuro General: patient oriented x3 and gait normal Cranial nerves: Yes Equal, round and reactive pupils present Psych Affect: normal affect Coding Level of Care Code Est Pt Level 3 (78788) Diagnoses Ulcer of right foot with fat layer exposed L97.512 Laterality: right Non-pressure ulcer stage: with fat layer exposed Diabetes E11.9 Assessment & Plan Assessment & Plan (1) Foot ulcer: Code(s): L97.509 - Non-pressure chronic ulcer of other part of unspecified foot with unspecified severity Category: Medical Qualifiers: Laterality: right Non-pressure ulcer stage: with fat layer exposed Qualified Code(s): L97.512 - Non-pressure chronic ulcer of other part of right foot with fat layer exposed Plan: Foot?ulcer?has?healed Does?have?small?callus Infection?is?resolved Encouraged?him?to?use?a?moisturizer?and?prevent?friction?with?a?bandage?or?callu s?pad?between?toes (2) Diabetes: Code(s): E11.9 - Type 2 diabetes mellitus without complications Category: Medical Plan: A1c?was?improving?at?last?check?a?month?ago Blood?sugars?continue?to?improve?and?now?fasting?blood?sugars?around?125 Continue?current?me dication?regimen?with?Lantus?14?units?daily,?metformin?and?Trulicity. Encouraged?diet Will?continue?to?follow?closely
[2025-04-30 11:14] VITALS: BP 90/60; PULSE 87; RESP 14; TEMP 36.8; O2SAT 98; BMI 25.3
--- OUTSIDE RECORDS SUMMARY | 2025-04-30 12:04 | XMS_ITS | Data Portability ---
Author Organization [employer] [facility] Address [address] [place] [address] Care Team Providers Care Clinical Evaluator Name Role Phone HIM CCA OTHER ELEN NIXON Primary Care Provider [phone] Assessment Encounter Date Assessment Date Assessment LastModified [...] SNOMED-CT Code Diagnosis ICD10 Code Diagnosis Note [id number] BETHANY ISAAC MD Main - instED [address] [place] [phone] 12/13/2024 18:40:09 12/13/2024 22:55:56 Ulcer of right foot due to type 2 diabetes mellitus [id number] E11.621 Evaluation in the field was performed by my children's counselor colleague, as noted above, I provided real-time [...] performed in the current setting, and the children's counselor team is BLS-certif ied (unable to establish a PIV or administer IV antibiotic s), the patient was strongly advised to go to the ED for further evaluation and management .-Attempte d to contact [facility] to provide a report but was unable to reach anyone . Primary care, consider__ _ Dispositio n:We discussed the situation and I recommende d referral to the emergency department . Health Concerns Section Related Observation LastModified by Organization Detai ls LastModified Time None Recorded Concern Status LastModified by Organization Details LastModified Time None Recorded Advance Directives Directive None Recorded Payers Insurance Date Sequence Insurance Name Policy Number Policy Flor Covered Member ID Flor Member ID Guarantor Name 12/13/2024 1 [facility] - DOS ON OR AFTER 2023 - DUAL ELIGIBLE - [employer] OPTIONS AND ONE CARE (MEDICARE REPLACEMENT/ADV ANTAGE - HMO) Tristan Au [id number] Tristan Au Notes Date Note Type Note Provider Name and Address Organization Details Recorded Time 12/13/2024 text/html CRC Nurse Triage Notes (Adrienne Morris - RN): Patient Reports: History of cellulitis, isolated redness noted Denies: Long Flash, circumferential long Long reported with black [...] ..................... ..................... ..................... ..................... ..................... ..................... ............... Studio Operator Note From Travis Day: Was dispatched for a 64 Y/O male complaining of an infection on his right foot. [facility] PT was in his living room. PT is A/Ox4. PT reported he had a blister that popped a week ago and it has festered since. PT vitals were obtained and an assessment was performed. Nothing remarkable was found upon completion of assessment. [facility] [place], [facility] told the PT he needs IV antibiotics due to the extent of the infection. PT understood. 911 was contacted, [facility] arrived on scene and transported the PT to [facility]. Crew cleared. ..................... ..................... ..................... ..................... ..................... ..................... ............... [facility] Consulted: Bethany Isaac ..................... ..................... ..................... ..................... ..................... ..................... ............... Disposition: Fulfilled BETHANY ISAAC MD [address] [facility],[address] [facility], [place], [address], NARINDER - Skicka TårtaANNAMARIA MCKENZIE 12/13/2024 19:51:02
--- OUTSIDE RECORDS SUMMARY | 2025-04-30 12:04 | XMS_ITS ---
Author Name [facility] Organization Unknown History of Medication Use Medication Directions Dispensed Refills Start Date End Date Status diphenhydrAMINE (BENADRYL) injection 50 mg 50 mg, Intravenous, Once, On Tue02/29/24 at 0800, For 1 doseGive 30 minutes prior to ocrelizumab. IV push over 2-3 minutes. See PO diphenhydramine order. Please give PO or IV. Common Side Effects: Drowsiness, stomach upset, confusion, dry mouth. Administer undiluted. Maximum rate 25 mg/min. 3 02/29/20 24 completed ARIPiprazole (ABILIFY) 2 MG tablet Take 1 tablet (2 mg total) by mouth daily. 1 active aspirin 81 MG chewable tablet Chew 1 tablet (81 mg total) by mouth daily. active FLUoxetine (PROzac) 20 MG capsule Take 1 capsule (20 mg total) by mouth daily. active glipiZIDE (GLUCOTROL XL) ER 24 hr tablet 5 mg Take 1 tablet (5 mg total) by mouth daily. active Ocrelizumab (OCREVUS IV) Inject 600 mg into the vein. active Umeclidinium-Vilante rol (Anoro Ellipta) 62.5-25 MCG/INH AEPB Inhale 62 mcg into the lungs daily. active Problems Problem Status Onset Date Problem Type Date of Resoluti on Source Multiple sclerosis active 2021-03-26 ProblemAct CTTHNEMG Type 2 diabetes mellitus active 2021-03-26 ProblemAct CTTHNEMG
--- OUTSIDE RECORDS SUMMARY | 2025-04-30 12:04 | XMS_ITS | Clinical Summary ---
Author Organization [facility] Address [address] [place] [address] Care Team Providers Care Pc Maintenance Technician Name Role Phone Josesito Rodriguez MD Primary Care Provider [phone] Allergies No known active allergies Medications Medication [...] 0 08/26/2021 Active ergocalciferol (VITAMIN D2) capsule 84748 units Take 1 capsule (50,000 Units total) [...] 79 02/29/2024 11:18 AM EDT Temperature 36.1 C (97 F) 02/29/2024 11:18 AM EDT Respiratory Rate 18 02/29/2024 11:1 [...] o f 2) 2012 COVID-19 Vaccine (3 2023-2 5 season) 2024 09/28/2021, 02/02/2021 Influenza Vaccine (Season Ended) 2025 DTap / Tdap / Td (2 - Td or Tdap) 03/11/2026 03/11/2016, 09/01/2005 RSV Adult > 60+ Yrs or (1 - 1-dose 75+ series) 2037 Hepatitis B Vaccines Aged Out No long er eligible based on patient's age to complete this topic RSV Ped < 20 months Aged Out No longe r eligible based on patient's age to complete this topic Care Teams Pc Maintenance Technician Relationship Specialty Start Date End Date Josesito Rodriguez MD PCP - General Internal Medicine 01/28/21
--- OUTSIDE RECORDS SUMMARY | 2025-04-30 12:04 | XMS_ITS | Clinical Summary ---
Author Organization [address] [facility] Address [address] [place] [address] Phone Care Team Providers Care Beekeeper Farmer Name Role Phone Josesito Rodriguez MD Primary Care Provider [phone] Allergies No known active allergies Medications atorvastatin [...] Problem Noted Date Diagnosed Date Multiple sclerosis ([facility] V24, [facility] V28) Type 2 diabetes mellitus ([facility] V24, [facility] V 28) 03/26/2021 Alcohol abuse [...] Encounter [facility] [place] [address] [place] [phone] Multiple sclerosis ([facility] [place]24, [facility] V28) (Primary Dx); Vitamin D deficiency Discharge Disposition: Home or Self Care 02/18/2025 8:30 AM EDT Office Visit [facility] - [place] [address] [facility] [address] [place] [address] Mayte Otto PA MS (multiple sclerosis) ([facility] V24, [facility] V28) (Primary Dx) from Last 3 Months Immunizations Name Administration Dates Next Due [email or web address] AS SARS-CoV-2 COVID -19, vector-nr, rS-Ad26, preservative free 02/02/2021 Td, Unspecified 09/01/2005 Medical History Medical History Date Comments MS (multiple sclerosis) ([facility] V24, [facility] V28) DX:MS (multiple sclerosis) ( [facility]) COPD (chronic obstructive pu lmonary disease) ([facility] V24, [facility] V28) DX:COPD (chronic o bstructive pulmonary disease) ([facility]) Emphysema lung ([facility] V24, [facility] V28) DX:Emphysema lung ([facility]) Diabetes mellitus ([facility] V 24, [facility] V28) DX:Diabetes mellitus ([facility]) Depression DX:Depression [...] 78 04/01/2025 11:02 AM EDT Temperature 36 C (96.8 F) 04/01/2025 11:02 AM EDT Respiratory Rate 18 [...] Description 06/24/2025 8:30 AM EDT Office Visit [facility] - [place] [address] [facility] [address] [place] [phone] Hermila Quintanilla MD [address] [phone] 09/25/2025 8:00 AM EST Appointment [facility] Outpatient Rehabilit[facility] - [place] [address] [phone] Health Maintenance Due Date Last Done Comments [...] (04/01/2025 8:17 AM EDT) [facility] WBC 6.4 4.8 - 10.8 K/mcL LAB HEMETOLOGY METHOD 04/01/2025 10:00 AM [facility] RBC 4.10(L) 4.50 - 5.50 M/mcL LAB HEMETOLOGY METHOD 04/01/2025 10:00 AM [facility] Hemoglobin 12.7(L) 13.5 - 17.5 g/dL LAB HEMETOLOGY METHOD 04/01/2025 10:00 AM [facility] Hematocrit 38.5(L) 42.0 - 54.0 % LAB HEMETOLOGY METHOD 04/01/2025 10:00 AM [facility] MCV 93.4 79.0 - 98.0 FL LAB HEMETOLOGY METHOD 04/01/2025 10:00 AM [facility] MCH 30.8 27.0 - 32.0 pcg LAB HEMETOLOGY METHOD 04/01/2025 10:00 AM [facility] MCHC 33.0 32.0 - 37.0 g/dL LAB HEMETOLOGY METHOD 04/01/2025 10:00 AM [facility] RDW 13.1 11.0 - 15.0 % LAB HEMETOLOGY METHOD 04/01/2025 10:00 AM [facility] Platelets 352 130 - 400 K/mcL LAB HEMETOLOGY METHOD 04/01/2025 10:00 AM [facility] MPV 9.0 7.0 - 11.0 FL LAB HEMETOLOGY METHOD 04/01/2025 10:00 AM [facility] NRBC 0.0 <1.0 % LAB HEMETOLOGY METHOD 04/01/2025 10:00 AM [facility] NRBC Absolute 0.00 <0.10 K/mcL LAB HEMETOLOGY METHOD 04/01/2025 10:00 AM [facility] Neutrophils Relative 59.3 % LAB HEMETOLOGY METHOD 04/01/2025 10:00 AM [facility] Lymphocytes Relative 28.7 % LAB HEMETOLOGY METHOD 04/01/2025 10:00 AM [facility] Monocytes Relative 8.3 % LAB HEMETOLOGY METHOD 04/01/2025 10:00 AM [facility] Eosinophils Relative 2.5 % LAB HEMETOLOGY METHOD 04/01/2025 10:00 AM [facility] Basophils Relative 0.6 % LAB HEMETOLOGY METHOD 04/01/2025 10:00 AM [facility] Immature Granulocytes Relative 0.6 % LAB HEMETOLOGY METHOD 04/01/2025 10:00 AM EDT [facility] Neutrophils Absolute 3.77 1.50 - 7.00 K/mcL LAB HEMETOLOGY METHOD 04/01/2025 10:00 AM EDT [facility] Lymphocytes Absolute 1.83 1.00 - 5.00 K/mcL LAB HEMETOLOGY METHOD 04/01/2025 10:00 AM EDT [facility] Monocytes Absolute 0.53 0.20 - 1.00 K/mcL LAB HEMETOLOGY METHOD 04/01/2025 10:00 AM EDT [facility] Eosinophils Absolute 0.16 0.00 - 0.50 K/mcL LAB HEMETOLOGY METHOD 04/01/2025 10:00 AM EDT [facility] Basophils Absolute 0.04 0.00 - 0.20 K/mcL LAB HEMETOLOGY METHOD 04/01/2025 10:00 AM EDT [facility] Immature Granulocytes Absolute 0.04(H) 0.00 - 0.03 K/mcL LAB HEMETOLOGY METHOD 04/01/2025 10:00 AM [facility] Blood Venous blood specimen / Unknown Venipuncture / Unknown 04/01/2025 8:17 AM EDT 04/01/2025 8:17 AM EDT us Mayte PAT LAB BLOOD ORDERABLES Final R esult [facility] [address] [place] [address], * Creatinine (04/01/2025 8:17 AM EDT) Creatinine 0.74 0.70 - 1.30 mg/dL LAB CHEMISTRY METHOD 04/01/2025 10:22 AM EDT [facility] eGFR 102 >=60 mL/min/1. 73m2 LAB CHEMISTRY METHOD 04/01/2025 10:22 AM EDT [facility] Comment:Calculation based on the Chronic Kidney Disease Epidemiology Collaboration (CKD-EPI) equation refit without adjustment for race. Blood Venous blood specimen / Unknown Venipuncture / Unknown 04/01/2025 8:17 AM EDT 04/01/2025 8:17 AM EDT Maytejuan Tuckeri PA LAB BLOOD ORDERABLES Final R esult Performing Organization Address [facility] Co de Phone Number [facility] [address] [place] [address], [place] [phone] * Vitamin D 25 hydroxy (04/01/2025 8:17 AM EDT) Vit D, 25-Hydroxy 34.7 30.0 - 80.0 ng/mL LAB CHEMISTRY METHOD 04/01/2025 11:20 AM EDT [facility] Blood Venous blood specimen / Unknown Venipuncture / Unknown 04/01/2025 8:17 AM EDT 04/01/2025 8:17 AM EDT Maytejuan Tuckeri PA LAB BLOOD ORDERABLES Final R esult Performing Organization Address [facility]/ZIP Co de Phone Number [facility] [address] [place] [address], [place] [phone] * BUN (04/01/2025 8:17 AM EDT) BUN 10 5 - 25 mg/dL LAB CHEMISTRY METHOD 04/01/2025 10:22 AM EDT [facility] Blood Venous blood specimen / Unknown Venipuncture / Unknown 04/01/2025 8:17 AM EDT 04/01/2025 8:17 AM EDT Mayte L Panasci PA LAB BLOOD ORDERABLES Final R esult Performing Organization Address City/[facility]/ZIP Co de Phone Number [facility] [address] [place] [address], * Vitamin B12 (04/01/2025 8:17 AM EDT) [facility] Vitamin B-12 435 250 - 900 pcg/mL LAB CHEMISTRY METHOD 04/01/2025 10:46 AM EDT [facility] Blood Venous blood specimen / Unknown Venipuncture / Unknown 04/01/2025 8:17 AM EDT 04/01/2025 8:17 AM EDT Mayte PAT LAB BLOOD ORDERABLES Final R esult Performing Organization Address [facility]/ZIP Co de Phone Number [facility] [address] [place] [address], * (ABNORMAL) Hepatic function panel (04/01/2025 8:17 AM EDT) [facility] Total Protein 6.9 6.0 - 8.0 g/dL LAB CHEMISTRY METHOD 04/01/2025 10:22 AM [facility] Albumin 3.6 3.2 - 5.0 g/dL LAB CHEMISTRY METHOD 04/01/2025 10:22 AM [facility] Total Bilirubin 0.3 0.0 - 1.4 mg/dL LAB CHEMISTRY METHOD 04/01/2025 10:22 AM [facility] Bilirubin, Direct 0.1 0.0 - 0.3 mg/dL LAB CHEMISTRY METHOD 04/01/2025 10:22 AM [facility] Bilirubin, Indirect 0.2 0.0 - 1.1 mg/dL LAB CHEMISTRY METHOD 04/01/2025 10:22 AM [facility] ALT (SGPT) 23 10 - 60 unit/L LAB CHEMISTRY METHOD 04/01/2025 10:22 AM EDT [facility] AST (SGOT) 10 10 - 42 unit/L LAB CHEMISTRY METHOD 04/01/2025 10:22 AM EDT [facility] Alkaline Phosphatase 130(H) 42 - 121 unit/L LAB CHEMISTRY METHOD 04/01/2025 10:22 AM EDT [facility] Blood Venous blood specimen / Unknown Venipuncture / Unknown 04/01/2025 8:17 AM EDT 04/01/2025 8:17 AM EDT Mayte PAT LAB BLOOD ORDERABLES Final R esult [facility]) [facility] [address] [place] [address], [place] [phone] * (ABNORMAL) Hemoglobin A1c (08/15/2007) Pathologist [facility] Hemoglobin A1C 6.1(A) 4.0 - 6.0 % Blood Venous blood specimen / Unknown Result [facility] Historical Provider LAB BLOOD ORDERABLES [...] Result * Hepatitis C Screening (10/19/2000) Pathologist [facility] Hepatitis C Screening abstracted Historical Provider HEALTH MAINTENANCE Final Result from Last 3 Months or Most Recently Relevant to Health Maintenance Insurance [facility] MEDICARE Member Subscriber Plan / Payer (Ef fective 2024-Present) Name:MEGHAN AU Relation to Subscriber:Self Name:Meghan Au Payer ID:[id number] Group ID:[id number] Type:Not on file Address: [place] [address] [place] [id number] Care Teams Beekeeper Farmer Relationship Specialty Start Date End Date Josesito Rodriguez MD [address] [place] [address] PCP - General Internal Medicine 01/28/21
== END 2025-04-30 11:52 | disposition home or self-care (01) ==
LOC: HO.HMCFM 10:51
PROVIDERS: PCP Family Medicine; Visit Provider Family Medicine
DX: E11.621 Type 2 diabetes mellitus with foot ulcer (principal); L97.512 Non-pressure chronic ulcer of other part of right foot with fat layer exposed

== ENCOUNTER → 2025-04-30 10:50 | Outpatient (BNVA) | payer OTHER, SELFPAY | PROVIDERS: PCP Family Medicine; Visit Provider Family Medicine | DX: E11.9 Type 2 diabetes mellitus without complications (principal); L84 Corns and callosities; Z86.31 Personal history of diabetic foot ulcer | CPT/HCPCS: 99212 ==

== ENCOUNTER 2025-06-06 09:44 | Outpatient (AMB) | payer OTHER, SELFPAY ==
--- NOTE | 2025-06-06 09:48 | MHC.PC.OV ---
Vital Signs 06/06/25 09:53 Height 6 ft Weight 183 lb 4 oz BMI 24.9 BP 112/68 Blood Pressure Location Rt brachial Position Sitting Respiration 16 Pulse 86 Pulse Source Pulse Oximeter Temp 97.9 F Temp Source Temporal Artery Scan Pulse Oximetry (%) 95 Oxygen Delivery Method Room Air Intake Visit Reasons: f/u diabetes Intake Note: Tristan presents in the office today for her diabetes. Allergies No Known Allergies (No Known Allergies*) Allergy (Verified 06/06/25 09:51) Tobacco use date assessed: 06/06/25 Dental Screening Dental Screen Date: 06/06/25 Did you have a dental visit in the last 12 months?: No Did you have a dental problem in the last 6 months where you did not have access to dental care?: No Was dental information given to patient?: Patient declined HPI f/u diabetes HPI Details 64 y/o male presents to f/u diabetes. Last A1c had shown improvement but was still significantly high. A1c 9.6% in February. A1c today 06/06/25 9.1%. He is on Trulicity, Lantus 14 u nits, metformin 1000mg b.i.d. Pt notes morning blood sugars around 202. Ongoing complaints of a foot ulcer. HPI Comments History of Present Illness Details Documentation assistance for Christian Ac MD, was provided by Jose Manuel Carrizales, Chronometer Adjuster on 06/06/2025 at 10:16 AM EST. I, Dr. Ac, have read, observed, and verified documentation. [facility] Medical History (Updated 03/28/25 @ 11:28 by Christian Ac MD) Depression with anxiety Diabetes Hypercholesteremia COPD (chronic obstructive pulmonary disease) Nicotine dependence, cigarettes, uncomplicated Imbalance Neuropathy Acid reflux Surgical History (Updated 01/04/25 @ 09:07 by Iesha Colby PA-C) No pertinent past surgical history Family History Mother Diabetes Cancer of kidney Father Diabetes Cardiovascular disease Social History (Updated 06/06/25 @ 09:53 by Aaliyah Lowery MA) Housing: Other (mobile home) Alcohol intake: current Patient Tobacco Use Status: Current everyday Tobacco user Cigarette Packs Per Day: 1 Years Smoked: (onset 18yo, 1ppd x 46yrs, 45pyh) e-Cigarette/Vaping Use: Never Used Second Hand Smoke Exposure: No Substance Use Type: Marijuana service: Yes Current occupational status: disabled Current occupational exposures/hazards: No Cognitive needs: No Hearing needs: No Vision needs: Yes (glasses for close up) Questionnaire Thrive Questionnaire Date Thrive assessed: 12/14/24 I am a: Patient What is your living situation today?: I have a steady place to live Within the past 12 months, did the food you bought not last and you didn't have the money to get more?: Sometimes True Within the past 12 months, did you worry whether your food would run out before you got money to buy more?: Sometimes True Do you have trouble paying for medicines?: No Do you have trouble getting transportation to medical appointments?: Yes Do you have trouble paying your heating and electricity bill?: Yes Do you have trouble taking care of your child, family member or friend?: I choose not to answer this question Do you have trouble with day-to-day activities such as bathing, preparing meals, shopping, managing finances, etc.?: Yes Are you currently unemployed and looking for a job?: No Are you interested in more education?: No Please select the resources that you would like help with: Utilities Currently or been in a relationship where the following occur: I choose not to answer THRIVE Score: 4 OKSANA-7 AMB Questionnaire OKSANA-7 Date OKSANA - 7 assessed: 11/14/24 Source: Developed by Drs. Jose Story, Allison Mejia, Antoine Ray and colleagues, with an educational franca from [employer] Review of Systems Const Denies chills, Denies fatigue, Denies fever(s), Denies headache(s) and Denies weakness ENT Denies dizziness and Denies headache(s) Card Denies dyspnea Resp Denies cough, Denies dyspnea, Denies wheezing and Denies other (shortness of breath) Musc Denies numbness and Denies tingling Neuro Denies dizziness, Denies headache(s), Denies numbness, Denies tingling and Denies weakness Psych Denies anxiety and Denies depression Endo Denies fatigue Aller/Immun Denies wheezing Physical exam (Primary Care) Vital Signs: Last Vital Signs Temp 97.9 F 06/06/25 09:53 Pulse 86 06/06/25 09:53 Resp 16 06/06/25 09:53 BP 112/68 06/06/25 09:53 Pulse Ox 95 06/06/25 09:53 Oxygen Delivery Method Room Air 06/06/25 09:53 BMI result Body Mass Index 24.9 Tobacco/Smoking Status: Tobacco use Status Tobacco use date assessed 06/06/25 06/06/25 09:56 Patient Tobacco Use Status Current everyday Tobacco 06/06/25 09:53 e-Cigarette/Vaping Use Never Used 06/06/25 09:53 Thrive Assessment: Date of Thrive Assessment Date Thrive assessed 12/14/24 06/06/25 09:50 Currently or been in a relationship where the following occur: I choose not to answer Const General: well developed; No acute distress Nutritional Appearance: well nourished Orientation/consciousness: patient oriented x3 HENMT Head: Yes normocephalic and Yes atraumatic Eyes General: appearance normal, both eyes and all related structures Pupils: Equal, round and reactive pupils present EOM: EOMs intact bilaterally Resp Effort & Inspection: normal respiratory effort Neuro General: patient oriented x3 and gait normal Cranial nerves: Yes Equal, round and reactive pupils present Psych Affect: normal affect Coding Level of Care Code Est Pt Level 4 (12061) Diagnoses Uncontrolled diabetes mellitus with hyperglycemia E11.65 Ulcer of right foot with fat layer exposed L97.512 Laterality: right Non-pressure ulcer stage: with fat layer exposed Assessment & Plan Assessment & Plan (1) Uncontrolled diabetes mellitus with hyperglycemia: Code(s): E11.65 - Type 2 diabetes mellitus with hyperglycemia Category: Medical Plan: A1c continues to slowly improve from 9.6% to 9.1%. Goal is less than 7%. Patient notes that his morning blood sugars are still around 200 Increasing Trulicity from 0.75 mg weekly, to 1.5 mg weekly. Increasing land is from 14 units daily to 60 daily. Continuing metformin as prescribed He rescheduled his eye exam for September. Encouraged him to attend Referring him to Podiatry for diabetic foot care, calluses and an ulceration between his toes (2) Foot ulcer: Code(s): L97.509 - Non-pressure chronic ulcer of other part of unspecified foot with unspecified severity Category: Medical Qualifiers: Laterality: right Non-pressure ulcer stage: with fat layer exposed Qualified Code(s): L97.512 - Non-pressure chronic ulcer of other part of right foot with fat layer exposed Plan: Resolves abscess/infection on 2nd toe, between his toes. However, still has ulcerations/callus. Referred to Podiatry Orders: Orders AMB Hemoglobin A1c Today E11.65 - Type 2 diabetes mellitus with hyperglycemia Referrals Podiatry Referral E11.65 - Type 2 diabetes mellitus with hyperglycemia, L02.611 - Cutaneous abscess of right foot, L97.512 - Non-pressure chronic ulcer of other part of right foot with fat layer exposed Medications: Changed From insulin glargine (Lantus Solostar U-100 Insulin) 14 units (0.14 mL) subcut DAILY 30 days 15 mL 3RF To insulin glargine (Lantus Solostar U-100 Insulin) 16 units (0.16 mL) subcut DAILY 6 mL 3RF 30 days From dulaglutide (Trulicity) 0.75 mg (0.5 mL) subcut QWEEK 28 days 2 mL 3RF To dulaglutide 1.5 mg (0.5 mL) subcut QWEEK 2 mL 3RF 28 days
[2025-06-06 09:53] VITALS: BP 112/68; PULSE 86; RESP 16; TEMP 36.6; O2SAT 95; BMI 24.9
--- OUTSIDE RECORDS SUMMARY | 2025-06-06 10:12 | XMS_ITS | Clinical Summary ---
Author Organization [address] [facility] Address [address] [place] [address] Phone Care Team Providers Care It Recruiter Name Role Phone Josesito Rodriguez MD Primary [...] Problem Noted Date Diagnosed Date Multiple sclerosis ([facility] V24, [facility] V28) Type 2 diabetes mellitus ([facility] V24, [facility] V 28) 03/26/2021 Alcohol abuse 08/15/2007 Tobacco use disorder 03/31/2006 Disturbance of skin sensation 11/30/2005 Pain in limb 11/30/2005 Anxiety state 11/25/2005 Infectious colitis, enteritis and gastroenteriti s 11/25/2005 Overview (10/12/2024): [facility] Depressive disorder 11/25/2005 Hyperlipidemia 11/25/2005 Encounters Date Type Department Care Team Description 04/01/2025 7:51 AM EDT - 04/01/2025 11:59 PM EDT Hospital Encounter [facility] [place] [facility] [address] [place] [address] Multiple sclerosis ([facility] V24, [facility] V28) (Primary Dx); Vitamin D deficiency Discharge Disposition: Home or Self Care from Last 3 Months Immunizations Name Administration Dates Next Due [employer] SARS-CoV-2 COVID -19, vector-nr, rS-Ad26, preservative free 02/02/2021 Td, Unspecified 09/01/2005 Medical History Medical History Date Comments MS (multiple sclerosis) ([facility] V24, [facility] V28) DX:MS (multiple sclerosis) ( [facility]) COPD (chronic obstructive pu lmonary disease) ([facility] V24, [facility] V28) DX:COPD (chronic o bstructive pulmonary disease) ([facility]) Emphysema lung ([facility] V24, [facility] V28) DX:Emphysema lung ([facility]) Diabetes mellitus ([facility] V 24, [facility] V28) DX:Diabetes mellitus ([facility] [...] Care Team (Late st Contact Info) Description 09/25/2025 8:00 AM EST Appointment [facility] Outpatient Rehabilititation [place] [address] [place] [id number] 09/25/2025 8:30 AM EST Office Visit [facility] [place] [address] [facility] [address] [place] [address] Hermila Quintanilla MD [address] [facility] [address] [place] [phone] Health Maintenance Due Date Last Done Comments Diabetes: Annual Foot Exam 1972 Diabetes: Annual Retina Eye Exam 1972 Hepatitis A Vaccines (1 of 2 - Risk 2-dose series) 1981 Pneumococcal Vaccine: 50+ Years (1 of 2 - PCV) 1981 Zoster Vaccines (1 of 2) 2012 RSV Immunization Adult Patients (1 - Risk 60-74 years 1-dose series) 2022 Cholesterol Screening (Lipid Panel) 10/08/2022 08/15/2007 Colorectal Cancer Screening: Colonoscopy 10/08/2022 HIV Screening 10/08/2022 Medicare Annual Wellness Visit 10/08/2022 Social Influencers of Health Screening 10/08/2022 Diabetes: Annual Urine Albumin-Creatinine Ratio (uACR) 10/30/2022 Diabetes: Blood Sugar Contro l Test (HGBA1C) 10/30/2022 08/15/2007 COVID-19 Vaccine (2023-2 5 season) 2024 09/28/2021, 02/02/2021 Depression Screening 10/31/2024 Influenza Vaccine (#1) 2025 Diabetes: Annual GFR (Glomerular Filtration Rate) [...] Routine 04/01/2025 8:17 AM EDT Multiple sclerosis ([facility]/HCC V24, [facility]/HCC V28) CBC AND DIFFERENTIAL Routine [...] 04/01/2025 8:1 7 AM EDT Multiple sclerosis ([facility]/HCC V24, [facility]/HCC V28) BUN Routine 04/01/2025 8:17 AM EDT Multiple sclerosis ([facility]/HCC V24, [facility]/HCC V28) HEMOGLOBIN A1C Routine 08/15/2007 LIPID PANEL Routine 08/15/2007 HEPATITIS C SCREENING Routine 10/19/2000 from Last 3 Months or Most Recently Relevant to Health Maintenance Results * (ABNORMAL) CBC auto differential (04/01/2025 8:17 AM EDT) WBC 6.4 4.8 - 10.8 K/mcL LAB HEMETOLOGY METHOD 04/01/2025 10:00 AM [facility] RBC 4.10(L) 4.50 - 5.50 M/mcL LAB HEMETOLOGY METHOD 04/01/2025 10:00 AM [facility] Hemoglobin 12.7(L) 13.5 - 17.5 g/dL LAB HEMETOLOGY METHOD 04/01/2025 10:00 AM [facility] Hematocrit 38.5(L) 42.0 - 54.0 % LAB HEMETOLOGY METHOD 04/01/2025 10:00 AM [facility] MCV 93.4 79.0 - 98.0 FL LAB HEMETOLOGY METHOD 04/01/2025 10:00 AM [facility] MCH 30.8 27.0 - 32.0 pcg LAB HEMETOLOGY METHOD 04/01/2025 10:00 AM [facility] MCHC 33.0 32.0 - 37.0 g/dL LAB HEMETOLOGY METHOD 04/01/2025 10:00 AM [facility] RDW 13.1 11.0 - 15.0 % LAB HEMETOLOGY METHOD 04/01/2025 10:00 AM [facility] Platelets 352 130 - 400 K/mcL LAB HEMETOLOGY METHOD 04/01/2025 10:00 AM [facility] MPV 9.0 7.0 - 11.0 FL LAB HEMETOLOGY METHOD 04/01/2025 10:00 AM [facility] NRBC 0.0 <1.0 % LAB HEMETOLOGY METHOD 04/01/2025 10:00 AM [facility] NRBC Absolute 0.00 <0.10 K/mcL LAB HEMETOLOGY METHOD 04/01/2025 10:00 AM [facility] Neutrophils Relative 59.3 % LAB HEMETOLOGY METHOD 04/01/2025 10:00 AM [facility] Lymphocytes Relative 28.7 % LAB HEMETOLOGY METHOD 04/01/2025 10:00 AM [facility] Monocytes Relative 8.3 % LAB HEMETOLOGY METHOD 04/01/2025 10:00 AM [facility] Eosinophils Relative 2.5 % LAB HEMETOLOGY METHOD 04/01/2025 10:00 AM [facility] Basophils Relative 0.6 % LAB HEMETOLOGY METHOD 04/01/2025 10:00 AM [facility] Immature Granulocytes Relative 0.6 % LAB HEMETOLOGY METHOD 04/01/2025 10:00 AM [facility] Neutrophils Absolute 3.77 1.50 - 7.00 K/mcL LAB HEMETOLOGY METHOD 04/01/2025 10:00 AM [facility] Lymphocytes Absolute 1.83 1.00 - 5.00 K/mcL LAB HEMETOLOGY METHOD 04/01/2025 10:00 AM EDT [facility] Monocytes Absolute 0.53 0.20 - 1.00 K/mcL LAB HEMETOLOGY METHOD 04/01/2025 10:00 AM EDT [facility] Eosinophils Absolute 0.16 0.00 - 0.50 K/mcL LAB HEMETOLOGY METHOD 04/01/2025 10:00 AM EDT [facility] Basophils Absolute 0.04 0.00 - 0.20 K/[facility] LAB HEMETOLOGY METHOD 04/01/2025 10:00 AM EDT [facility] Immature Granulocytes Absolute 0.04(H) 0.00 - 0.03 K/[facility] LAB HEMETOLOGY METHOD 04/01/2025 10:00 AM EDT [facility] Blood Venous blood specimen / Unknown Venipuncture / Unknown 04/01/2025 8:17 AM EDT 04/01/2025 8:17 AM EDT Mayte PAT LAB BLOOD ORDERABLES Final R esult [facility] [address] [place] [address], * Creatinine (04/01/2025 8:17 AM EDT) Creatinine 0.74 0.70 - 1.30 mg/dL LAB CHEMISTRY METHOD 04/01/2025 10:22 AM EDT [facility] eGFR 102 >=60 mL/min/1. 73m2 LAB CHEMISTRY METHOD 04/01/2025 10:22 AM EDT [facility] Comment:Calculation based on the Chronic Kidney Disease Epidemiology Collaboration (CKD-EPI) equation refit without adjustment for race. Blood Venous blood specimen / Unknown Venipuncture / Unknown 04/01/2025 8:17 AM EDT 04/01/2025 8:17 AM EDT us Maytejuan Tuckeri PA LAB BLOOD ORDERABLES Final R esult [facility] [address] [place] [address], [place] [phone] * Vitamin D 25 hydroxy (04/01/2025 8:17 AM EDT) Pathologist [facility] Vit D, 25-Hydroxy 34.7 30.0 - 80.0 ng/mL LAB CHEMISTRY METHOD 04/01/2025 11:20 AM EDT [facility] Blood Venous blood specimen / Unknown Venipuncture / Unknown 04/01/2025 8:17 AM EDT 04/01/2025 8:17 AM EDT Maytejuan Tuckeri PA LAB BLOOD ORDERABLES Final R esult Performing Organization Address City/[facility]/ZIP Co de Phone Number [facility] [address] [place] [address], [place] [phone] * BUN (04/01/2025 8:17 AM EDT) [facility] BUN 10 5 - 25 mg/dL LAB CHEMISTRY METHOD 04/01/2025 10:22 AM EDT [facility] Blood Venous blood specimen / Unknown Venipuncture / Unknown 04/01/2025 8:17 AM EDT 04/01/2025 8:17 AM EDT [facility] Caitlini PA LAB BLOOD ORDERABLES Final R esult [facility] [address] [place] [address], [place] [phone] * Vitamin B12 (04/01/2025 8:17 AM EDT) [facility] Vitamin B-12 435 250 - 900 pcg/mL LAB CHEMISTRY METHOD 04/01/2025 10:46 AM EDT [facility] Blood Venous blood specimen / Unknown Venipuncture / Unknown 04/01/2025 8:17 AM EDT 04/01/2025 8:17 AM EDT Mayte PAT LAB BLOOD ORDERABLES Final R esult [facility] [address] [place] [address], [place] [phone] * (ABNORMAL) Hepatic function panel (04/01/2025 8:17 AM EDT) Total Protein 6.9 6.0 - 8.0 g/dL LAB CHEMISTRY METHOD 04/01/2025 10:22 AM EDT [facility] Albumin 3.6 3.2 - 5.0 g/dL LAB CHEMISTRY METHOD 04/01/2025 10:22 AM [facility] Total Bilirubin 0.3 0.0 - 1.4 mg/dL LAB CHEMISTRY METHOD 04/01/2025 10:22 AM [facility] Bilirubin, Direct 0.1 0.0 - 0.3 mg/dL LAB CHEMISTRY METHOD 04/01/2025 10:22 AM [facility] Bilirubin, Indirect 0.2 0.0 - 1.1 mg/dL LAB CHEMISTRY METHOD 04/01/2025 10:22 AM [facility] ALT (SGPT) 23 10 - 60 unit/L LAB CHEMISTRY METHOD 04/01/2025 10:22 AM [facility] AST (SGOT) 10 10 - 42 unit/L LAB CHEMISTRY METHOD 04/01/2025 10:22 AM [facility] Alkaline Phosphatase 130(H) 42 - 121 unit/L LAB CHEMISTRY METHOD 04/01/2025 10:22 AM [facility] Blood Venous blood specimen / Unknown Venipuncture / Unknown 04/01/2025 8:17 AM EDT 04/01/2025 8:17 AM EDT Mayte PAT LAB BLOOD ORDERABLES Final R esult [facility] [address] [place] [address], * (ABNORMAL) Hemoglobin A1c (08/15/2007) Pathologist [facility] Hemoglobin A1C 6.1(A) 4.0 - 6.0 % Blood Venous blood specimen / Unknown Result [facility] Historical Provider LAB BLOOD ORDERABLES Nelly l Result * (ABNORMAL) Lipid panel (08/15/2007) Pathologist [facility] LDL/HDL Ratio 6(A) 0 - 4 Triglycerides 311(A) 0 - 150 mg/dL Cholesterol 214(A) 0 - 200 mg/dL HDL 36(A) >=40 mg/dL LDL Cholesterol 116(A) 0 - 100 mg/dL Blood Venous blood specimen / Unknown Result [facility] Historical Provider LAB BLOOD ORDERABLES Nelly l Result * Hepatitis C Screening (10/19/2000) Pathologist [facility] Hepatitis C Screening abstracted Historical Provider HEALTH MAINTENANCE Final Result from Last 3 Months or Most Recently Relevant to Health Maintenance Insurance [facility] MEDICARE Member Subscriber Plan / Payer (Ef fective 2024-Present) Name:MEGHAN AU Relation to Subscriber:Self Name:Meghan Au Payer ID:[id number] Group ID:[id number] Type:Not on file Address: [address] [place] [address] Care Teams It Recruiter Relationship Specialty Start Date End Date Josesito Rodriguez MD [address] [place] [address] PCP - General Internal Medicine 01/28/21
--- OUTSIDE RECORDS SUMMARY | 2025-06-06 10:12 | XMS_ITS | Clinical Summary ---
Author Organization [facility] Address [address] [place] [address] Care Team Providers Care Revenue Field Auditor Name Role Phone Josesito Rodriguez MD Primary Care Provider [phone] Allergies No known active allergies Medications Medication [...] 0 08/26/2021 Active ergocalciferol (VITAMIN D2) capsule 18032 units Take 1 capsule (50,000 Units total) [...] season) 2024 09/28/2021, 02/02/2021 Influenza Vaccine (#1) 2025 DTap / Tdap / Td (2 [...] age to complete this topic Care Teams Revenue Field Auditor Relationship Specialty Start Date End Date Josesito Rodriguez MD PCP - General Internal Medicine 01/28/21
== END 2025-06-06 10:22 | disposition home or self-care (01) ==
LOC: HO.HMCFM 09:44
PROVIDERS: PCP Family Medicine; Visit Provider Family Medicine
DX: E11.65 Type 2 diabetes mellitus with hyperglycemia (principal); L97.512 Non-pressure chronic ulcer of other part of right foot with fat layer exposed

== ENCOUNTER → 2025-06-06 09:44 | Outpatient (BNVA) | payer OTHER, SELFPAY | PROVIDERS: PCP Family Medicine; Visit Provider Family Medicine | DX: E11.621 Type 2 diabetes mellitus with foot ulcer (principal); E11.65 Type 2 diabetes mellitus with hyperglycemia; L97.512 Non-pressure chronic ulcer of other part of right foot with fat layer exposed | CPT/HCPCS: 83036; 99212 ==

== ENCOUNTER 2025-08-01 09:59 | Outpatient (AMB) | payer OTHER, SELFPAY ==
[2025-08-01 10:30] VITALS: BMI 23.3
--- NOTE | 2025-08-01 10:30 | A.OFFVIS_ITS ---
Vital Signs 08/01/25 10:30 Height 6 ft Weight 172 lb BMI 23.3 Intake Visit Reasons: Diabetic foot care/Abscess of right foot Intake Note: Tristan is a 64 year old male who presents today as a new patient for a diabetic foot exam with abscess on his right foot. His last reported A1C was 9.1 and was taken back in 06/06/25. Patient has not checked his glucose today and he has notices bilateral numbness in his feet, which he he believes it is due to his multiple sclerosis or his diabetes. patient reports experiencing dizziness however he denies nausea, vomiting, headaches. He states he has no injuries to his back but he experiences mild back pain. patient mentions he is prescribed gabapentin but he is not taking the medication currently. Abscess is located on his right 2nd toe on the medial side and he states it is doing a lot better. Patient reports this has been going on for about 5-6 months and he completed two courses of antibiotics that was prescribed by his PC, and he states this started off as a blister from his boots. Allergies No Known Allergies (No Known Allergies*) Allergy (Verified 08/01/25 10:31) HPI HPI Diabetic foot care/Abscess of right foot: Details: The patient is a 64-year-old male past medical history of diabetes mellitus type 2, multiple sclerosis, COPD, GERD presenting for initial evaluation of right 2nd toe infection. He notes he had a scab on his 2nd toe which he peeled off. He then had an infection and was seen by a physician who referred him to the hospital for antibiotic treatment. The patient had left the hospital AMA and went back to his PCP who prescribed multiple courses of oral antibiotics. He notes the toe infection as significantly improved since then and thinks it has resolved. The patient has a history of multiple sclerosis, described as relapsing remitting, for which he receives infusions every six months. He experiences significant fatigue and instability while walking, attributed to his condition, but does not use a cane despite recommendations. Medical History: - Diabetes Mellitus - Multiple Sclerosis - Chronic Obstructive Pulmonary Disease (COPD) - Depression - Hypercholesterolemia Medications: - Metformin for Diabetes Mellitus - Depression medication (unspecified) - Cholesterol-lowering medication for Hypercholesterolemia Social History: - The patient experiences significant fatigue and instability while walking due to multiple sclerosis, but does not use a cane despite recommendations. - The patient manages COPD symptoms with lifestyle modifications, although he still experiences significant limitations. [facility] Medical History (Updated 08/01/25 @ 12:02 by David Bethea DPM) Depression with anxiety Diabetes Hypercholesteremia COPD (chronic obstructive pulmonary disease) Nicotine dependence, cigarettes, uncomplicated Imbalance Neuropathy Acid reflux Surgical History (Updated 01/04/25 @ 09:07 by Iesha Colby PA-C) No pertinent past surgical history Family History Mother Diabetes Cancer of kidney Father Diabetes Cardiovascular disease Social History (Updated 06/06/25 @ 09:53 by Aaliyah Lowery MA) Housing: Other Alcohol intake: current Patient Tobacco Use Status: Current everyday Tobacco user Cigarette Packs Per Day: 1 Years Smoked: (onset 18yo, 1ppd x 46yrs, 45pyh) e-Cigarette/Vaping Use: Never Used Second Hand Smoke Exposure: No Substance Use Type: Marijuana service: Yes Current occupational status: disabled Current occupational exposures/hazards: No Cognitive needs: No Hearing needs: No Vision needs: Yes (glasses for close up) Review of Systems Const All systems reviewed & are unremarkable except as noted in HPI and below Physical Exam Vital Signs: BMI result Body Mass Index 23.3 Extrem Other: *Bilateral Lower Extremity Focused Diabetic Foot Exam Vascular: DP/PT 2/4, CFT<3s to digits, TG warm to cool, no pedal edema, pedal hair absent Derm: Right medial 2nd digit hyperkeratotic lesion with underlying dry hematoma. No erythema drainage or clinical signs of infection. Skin: Bilateral heel fissures, dry xerotic skin forefoot and heel. Nails: Elongated thickened dystrophic toenails x 10. Neuro: [place]-eryn monofilament (10g) test 0/10 intact to right foot, 0/10 intact to left foot. Msk: Deformities: High arch cavus feet, semi-rigid IPJ flexion deformities digits 1- 5 bilaterally Muscle strength: 5/5 in all muscle groups. Gait: Normal, no antalgic or steppage gait observed. Footwear Assessment: Shoes inspected; appropriate fit, no excessive wear, or foreign objects noted. Office Procedures AMB Debridement/Avulsion Podia Details: 1. Procedure: Sharp excisional debridement Depth: Dermis layer Indication: Right foot 2nd digit wound Anesthesia: N/A Description: The site was prepped using alcohol/cleanser. A #15 Blade was used to perform a sharp excisional wound debridement of the lesion to the level of dermis. The lesion measured 0.3 cm x 0.3 cm at the end of debridement. Dressings: Triple antibiotic cream, Band-Aid Tolerance: Patient tolerated procedure well, no immediate complications. 2. Procedure: Nail debridement Location: 10 nails bilateral feet Anesthesia: N/A Description: The affected toenails were cleansed with an antiseptic solution. Using sterile nail nippers and a rotary chris, dystrophic and mycotic nail material was carefully debrided and reduced in thickness. Care was taken to avoid trauma to the surrounding skin and nail bed. All debris was removed as tolerated. The area was inspected for signs of infection or ulceration. Patient tolerated the procedure well without complications. Tolerance: Patient tolerated procedure well, no immediate complications. Class A findings as per physical exam findings above. The patient has a diagnosis of multiple sclerosis and diabetes mellitus and presents with elongated, thickened toenails. Due to underlying diabetic neuropathy and mild vascular disease findings, the patient is at increased risk for complications such as ulceration, infection, and difficulty with self-care. Debridement of elongated toenails is medically necessary to prevent development of pressure-related lesions, reduce risk of secondary infection, and maintain foot health in high-risk comorbidities. 78914-Nojvtmaujvz of active wound <20cm 16203-Bgdcmabinft of Nail 6+ Procedure code (CPT) selection complete Office Meds Triple Antibiotic 3.5 mg-400 unit-5,000 unit topical ointment packet Performing Provider: David Bethea DPM Performing Location: [facility] [place] Podiatry-[facility] Administered by: David Bethea DPM on 08/01/25 11:58 Dose Route Admin Location Dispensed Lot Number Expiration Date [facility] Mechanical Commissioning Engineer 1 appl topical 1 appl [id number] [place] Results Reviewed Results Reviewed: Podiatry X-ray Read: 04/08/2025 X-ray right foot 3 views (AP, MO, Lateral) reviewed which shows no erosive changes, no exostosis. Moderate narrowing of IPJ right foot digits 1 through 5, severe narrowing of 1st through 4th tarsometatarsal joints. Large posterior Achilles insertion exostosis. Bone density is within normal limits. High arch rear-foot cavus feet. No evidence of swelling, foreign body, or calcifications. I personally reviewed the imaging and my findings are listed above. Assessment & Plan Assessment & Plan (1) Uncontrolled diabetes mellitus with hyperglycemia: Code(s): E11.65 - Type 2 diabetes mellitus with hyperglycemia Category: Medical Plan: Risk Stratification: No current ulceration, infection, or pre-ulcerative lesion. Significant loss of protective sensation. No findings of advanced peripheral arterial disease. No plans for further testing/referrals for non-invasive vascular studies. Patient is at moderate risk for diabetic foot complications at this time. Recommendations: Continue routine foot care and daily self-inspection. Recommend moisturizing daily. Recommend supportive proper fitting shoe-wear. Reinforced diabetic foot education and risks from peripheral neuropathy. He was prescribed diabetic shoes. (2) Foot ulcer: Code(s): L97.509 - Non-pressure chronic ulcer of other part of unspecified foot with unspecified severity Category: Medical Qualifiers: Laterality: right Non-pressure ulcer stage: with fat layer exposed Qualified Code(s): L97.512 - Non-pressure chronic ulcer of other part of right foot with fat layer exposed Plan: * Debrided right 2nd toe lesion. No clinical signs of infection. * Recommended applying antibiotic cream and Band-Aid daily. Once the scab is healed, he was recommended to apply light moisturizer. (3) Abscess of toe of right foot: Code(s): L02.611 - Cutaneous abscess of right foot Category: Medical Plan: * No abscess noted today. Appears to have resolved. (4) Fissure in skin of both feet: Code(s): R23.4 - Changes in skin texture Category: Medical Plan: * Rx urea cream 40% (5) Cavus deformity of both feet: Code(s): Q66.71 - Congenital pes cavus, right foot; Q66.72 - Congenital pes cavus, left foot Category: Medical Plan: * Recommended diabetic shoes due to his foot type and high-risk of complications due to increased forefoot and heel pressure. (6) Onychogryphosis: Code(s): L60.2 - Onychogryphosis Category: Medical Plan: * Debrided elongated thickened toenails x 10 using sterile nail nippers. Orders: Orders AMB Debridement/Avulsion Podiatry Today L02.611 - Cutaneous abscess of right foot, L60.2 - Onychogryphosis Medications: New [Diabetic Shoes] Please dispense extra-depth diabetic shoes with Plastazote inserts. 1 ea 0RF Diabetic peripheral neuropathy E11.65 - Type 2 diabetes mellitus with hyperglycemia, L02.611 - Cutaneous abscess of right foot, L97.512 - Non-pressure chronic ulcer of other part of right foot with fat layer exposed urea 37.5% 1 appl topical BID 142 grams 3RF heel fissures R23.4 - Changes in skin texture Coding Level of Care Code New Pt Level 4 (17702) Diagnoses Uncontrolled diabetes mellitus with hyperglycemia E11.65 Ulcer of right foot with fat layer exposed L97.512 Laterality: right Non-pressure ulcer stage: with fat layer exposed Abscess of toe of right foot L02.611 Fissure in skin of both feet R23.4 Cavus deformity of both feet Q66.71; Q66.72 Onychogryphosis L60.2 CPT Codes Skin Debridement - CPT: 54246-Ewilyttwvkd of active wound <20cm ([id number]) Skin Debridement - CPT: 14548-Lqkognjhwnb of Nail 6+ ([id number]) Time Spent (min) 50
--- OUTSIDE RECORDS SUMMARY | 2025-08-01 11:16 | XMS_ITS | Clinical Summary ---
Author Organization [facility] Address [address] [place] [address] Care Team Providers Care Chain Forming Machine Operator Name Role Phone Josesito Rodriguez MD Primary Care Provider [phone] Allergies No known active allergies Medications Medication [...] 0 08/26/2021 Active ergocalciferol (VITAMIN D2) capsule 27528 units Take 1 capsule (50,000 Units total) [...] o f 2) 2012 COVID-19 Vaccine (3 2024-2 6 season) 2025 09/28/2021, 02/02/2021 Influenza Vaccine (#1) 2025 DTap [...] age to complete this topic Care Teams Chain Forming Machine Operator Relationship Specialty Start Date End Date Josesito Rodriguez MD PCP - General Internal Medicine 01/28/21
--- OUTSIDE RECORDS SUMMARY | 2025-08-01 11:16 | XMS_ITS | Clinical Summary ---
Author Organization [address] [facility] Address [address] [place] [address] Phone Care Team Providers Care Bakery Products Checker Name Role Phone Josesito Rodriguez MD Primary [...] Multiple sclerosis 03/26/2021 Type 2 diabetes mellitus (CMS/HCC V24, CMS/HCC V 28) 03/26/2021 Alcohol abuse 08/15/2007 Tobacco use disorder 03/31/2006 Disturbance of skin sensation 11/30/2005 Pain in limb 11/30/2005 Anxiety state 11/25/2005 Infectious colitis, enteritis and gastroenteriti s 11/25/2005 Overview (10/12/2024): [facility] Depressive disorder 11/25/2005 Hyperlipidemia 11/25/2005 Immunizations Immunization Administration Dates Next Due TAY/Sharon SARS-CoV-2 COVID -19, vector-nr, rS-Ad26, preservative free 02/02/2021 Td, Unspecified 09/01/2005 Medical History Medical History Date Comments MS (multiple sclerosis) DX:MS (m ultiple sclerosis) ([facility]) COPD (chronic obstructive pu lmonary disease) [place] [place], [facility] [place]28) DX:COPD (chronic o bstructive pulmonary disease) ([facility]) Emphysema lung ([facility] [place]24, [facility] V28) DX:Emphysema lung ([facility]) Diabetes mellitus ([facility] [place] 24, [facility] [place]28) DX:Diabetes mellitus ([facility]) Depression DX:Depression Anxiety DX:Anxiety Depression DX:Depression Family [...] Info) Description 09/25/2025 8:00 AM EST Appointment [facility] [place] [address] [place] [phone] 09/25/2025 8:30 AM EST Office Visit [facility] [place] [address] [place] [phone] Mayte Otto, BI [address] [place] [address] Health Maintenance Due Date Last Done Comments Colorectal Cancer Screening: Colonoscopy 1962 Diabetes: Annual Foot Exam 1972 Diabetes: Annual Retina Eye Exam 1972 Hepatitis A Vaccines (1 of 2 - Risk 2-dose series) 1981 Pneumococcal Vaccine: 50+ Years (1 of 2 - PCV) 1981 Zoster Vaccines (1 of 2) 2012 RSV Immunization Adult Patients (1 - Risk 60-74 years 1-dose series) 2022 Cholesterol Screening (Lipid Panel) 10/08/2022 08/15/2007 HIV Screening 10/08/2022 Medicare Annual Wellness Visit 10/08/2022 Social Influencers of Health Screening 10/08/2022 Diabetes: Annual Urine Albumin-Creatinine Ratio (uACR) 10/30/2022 Diabetes: Blood Sugar Contro l Test (HGBA1C) 10/30/2022 08/15/2007 Depression Screening 10/31/2024 COVID-19 Vaccine (3 - 2024-2 6 season) 2025 09/28/2021, 02/02/2021 Influenza Vaccine (#1) 2025 Diabetes: Annual GFR [...] Procedure Name Priority Date/Time Associated Diagnosis Comments EXTERNAL MRI REPORT 06/26/2025 CREATININE, SERUM Routine 04/01/2025 8:1 7 AM EDT Multiple sclerosis (CMS/HCC V24, CMS/HCC V28) HEMOGLOBIN A1C Routine 08/15/2007 LIPID PANEL Routine 08/15/2007 HEPATITIS C SCREENING Routine 10/19/2000 from Last 3 Months or Most Recently Relevant to Health Maintenance Results * External MRI Report (06/26/2025) Anatomical Region Laterality Modality Magnetic Resonan ce Provider [facility] PROCEDURES Final Result * Creatinine (04/01/2025 8:17 AM EDT) Creatinine 0.74 0.70 - 1.30 mg/dL LAB CHEMISTRY METHOD 04/01/2025 10:22 AM EDT [facility] eGFR 102 >=60 mL/min/1. 73m2 LAB CHEMISTRY METHOD 04/01/2025 10:22 AM EDT [facility] Comment:Calculation based on the Chronic Kidney Disease Epidemiology Collaboration (CKD-EPI) equation refit without adjustment for race. Blood Venous blood specimen / Unknown Venipuncture / Unknown 04/01/2025 8:17 AM EDT 04/01/2025 8:17 AM EDT Mayte PAT LAB BLOOD ORDERABLES Final R esult [facility] [address] [place] [address], * (ABNORMAL) Hemoglobin A1c (08/15/2007) Pathologist [facility] Hemoglobin A1C 6.1(A) 4.0 - 6.0 % Blood Venous blood specimen / Unknown Historical Provider LAB BLOOD ORDERABLES Nelly l Result * (ABNORMAL) Lipid panel (08/15/2007) Pathologist [facility] LDL/HDL Ratio 6(A) 0 - 4 Triglycerides 311(A) 0 - 150 mg/dL Cholesterol 214(A) 0 - 200 mg/dL HDL 36(A) >=40 mg/dL LDL Cholesterol 116(A) 0 - 100 mg/dL Blood Venous blood specimen / Unknown Historical Provider LAB BLOOD ORDERABLES Nelly l Result * Hepatitis C Screening (10/19/2000) Pathologist [facility] Hepatitis C Screening abstracted Historical Provider HEALTH MAINTENANCE Final Result from Last 3 Months or Most Recently Relevant to Health Maintenance Insurance [facility] MEDICARE Member Subscriber Plan / Payer (Ef fective 2024-Present) Name:MEGHAN AU Relation to Subscriber:Self Name:Meghan Au Payer ID:[id number] Group ID:[id number] Type:Not on file Address: [place] [address] [place] [phone] Care Teams Bakery Products Checker Relationship Specialty Start Date End Date Josesito Rodriguez MD [address] [place] [address] PCP - General Internal Medicine 01/28/21
== END 2025-08-01 11:02 | disposition home or self-care (01) ==
PROVIDERS: PCP Family Medicine; Visit Provider Student in an Organized Health Care Education/Training Program
DX: E11.65 Type 2 diabetes mellitus with hyperglycemia (principal); L97.512 Non-pressure chronic ulcer of other part of right foot with fat layer exposed; L02.611 Cutaneous abscess of right foot; R23.4 Changes in skin texture; Q66.71 Congenital pes cavus, right foot; Q66.72 Congenital pes cavus, left foot; L60.2 Onychogryphosis
CPT/HCPCS: 11721; 97597; 99203

== ENCOUNTER → 2025-08-01 09:59 | Outpatient (BNVA) | payer OTHER, SELFPAY | PROVIDERS: PCP Family Medicine; Visit Provider Student in an Organized Health Care Education/Training Program | DX: E11.621 Type 2 diabetes mellitus with foot ulcer (principal); L97.512 Non-pressure chronic ulcer of other part of right foot with fat layer exposed; E11.65 Type 2 diabetes mellitus with hyperglycemia; L60.2 Onychogryphosis; L02.611 Cutaneous abscess of right foot; Q66.71 Congenital pes cavus, right foot; Q66.72 Congenital pes cavus, left foot; R23.4 Changes in skin texture | CPT/HCPCS: 97597; 99202 ==

== ENCOUNTER 2025-09-11 08:51 | Outpatient (AMB) | payer OTHER, SELFPAY ==
--- OUTSIDE RECORDS SUMMARY | 2025-09-11 09:19 | XMS_ITS | Clinical Summary ---
Author Organization 175 [facility] Address [address] [place] [address] Phone Care Team Providers Care Mri Specialist Name Role Phone Josesito Rodriguez MD [...] Encounters Date Type Department Care Team Description 08/26/2025 Telephone [facility] [address] [place] [address] Mayte Otto PA from Last 3 Months Immunizations Immunization Administration Dates Next Due TAY/Sharon SARS-CoV-2 COVID -19, vector-nr, rS-Ad26, preservative free 02/02/2021 Td, Unspecified 09/01/2005 Medical History Medical History Date Comments MS (multiple sclerosis) DX:MS (m ultiple sclerosis) ([facility]) COPD (chronic obstructive pu lmonary disease) ([facility] V24, [facility] V28) DX:COPD (chronic o bstructive pulmonary disease) ([facility]) Emphysema lung ([facility] V24, [facility] V28) DX:Emphysema lung ([facility]) Diabetes mellitus ([facility] V 24, [facility] V28) DX:Diabetes mellitus ([facility]) Depression DX:Depression Anxiety DX:Anxiety Depression DX:Depression Family [...] Info) Description 09/25/2025 8:00 AM EST Appointment [facility] [place] [address] [place] [address] 09/25/2025 8:30 AM EST Office Visit [facility] [place] [address] [facility] [address] [place] [phone] Mayte Otto, BI [address] [place] [phone] Health Maintenance Due Date Last Done Comments Colorectal Cancer Screening: Colonoscopy 1962 Diabetes: Annual Foot Exam 1972 Diabetes: Annual Retina Eye Exam 1972 Hepatitis A Vaccines (1 of 2 - Risk 2-dose series) 1981 Pneumococcal Vaccine: 50+ Years (1 of 2 - PCV) 1981 RSV Immunization Adult Patients (1 - Risk 50-74 years 1-dose series) 2012 Zoster Vaccines (1 of 2) 2012 Cholesterol Screening (Lipid Panel) 10/08/2022 08/15/2007 HIV [...] Anatomical Region Laterality Modality Magnetic Resonan ce us Provider [facility] MRI PROCEDURES Final Result * Creatinine (04/01/2025 8:17 AM EDT) Creatinine 0.74 0.70 - 1.30 mg/dL LAB CHEMISTRY METHOD 04/01/2025 10:22 AM EDT [facility] eGFR 102 >=60 mL/min/1. 73m2 LAB CHEMISTRY METHOD 04/01/2025 10:22 AM EDT [facility] Comment:Calculation based on the Chronic Kidney Disease Epidemiology Collaboration (CKD-EPI) equation refit without adjustment for race. Blood Venous blood specimen / Unknown Venipuncture / Unknown 04/01/2025 8:17 AM EDT 04/01/2025 8:17 AM EDT Mayte PAT LAB BLOOD ORDERABLES Final R esult [facility] [address] [place] [address], * (ABNORMAL) Hemoglobin A1c (08/15/2007) Pathologist [place] [...] Blood Venous blood specimen / Unknown Result [facility] Historical Provider LAB BLOOD ORDERABLES Nelly l Result * Hepatitis C Screening (10/19/2000) Pathologist [facility] Hepatitis C Screening abstracted Historical Provider HEALTH MAINTENANCE Final Result from Last 3 Months or Most Recently Relevant to Health Maintenance Insurance [facility] MEDICARE Member Subscriber Plan / Payer (Ef fective 2024-Present) Name:MEGHAN AU Relation to Subscriber:Self Name:Meghan Au Payer ID:[id number] Group ID:[id number] Type:Not on file Address: [place] [address] [place] [phone] Care Teams Mri Specialist Relationship Specialty Start Date End Date Josesito Rodriguez MD [address] [place] [address] PCP - General Internal Medicine 01/28/21
--- OUTSIDE RECORDS SUMMARY | 2025-09-11 09:20 | XMS_ITS | Clinical Summary ---
Author Organization [facility] Address [address] [place] [address] Care Team Providers Care Vascular Sonographer Name Role Phone Josesito Rodriguez MD Primary Care Provider [phone]- [phone] Allergies No known active allergies Medications Medication [...] 0 08/26/2021 Active ergocalciferol (VITAMIN D2) capsule 80033 units Take 1 capsule (50,000 Units total) [...] age to complete this topic Care Teams Vascular Sonographer Relationship Specialty Start Date End Date Josesito Rodriguez MD PCP - General Internal Medicine 01/28/21
--- NOTE | 2025-09-11 09:29 | MHC.PC.OV ---
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 Allergies No Known Allergies (No Known Allergies*) Allergy (Verified 09/11/25 09:29) Medication List - Last Reconciled 09/11/25 by Christian Ac MD aripiprazole 15 mg PO DAILY 30 days atorvastatin 80 mg PO DAILY 90 days blood sugar diagnostic (FreeStyle Lite Strips) DX: E11.9, test blood sugar 2 times a day, 90 days blood-glucose meter (FreeStyle Lite Meter kit) DX: E11.9, test blood sugar 2 times a day, duration 999 days [Diabetic Shoes Please dispense extra-depth diabetic shoes with Plastazote inserts.] dulaglutide 1.5 mg (0.5 mL) subcut QWEEK 28 days insulin glargine (Lantus Solostar U-100 Insulin) 16 units (0.16 mL) subcut DAILY 30 days lancets (FreeStyle Lancets) As directed, 90 days metformin 1,000 mg PO BID 90 days pen needle, diabetic To treat Blood sugar once per day, As directed, 90 days umeclidinium-vilanterol 62.5-25 mcg/actuation (Anoro Ellipta) 1 inh inhalation Q24H 30 days urea 40% 1 appl topical BID urea 37.5% 1 appl topical BID Tobacco use date assessed: 06/06/25 Dental Screening Dental Screen Date: 06/06/25 HPI f/u diabetes HPI Details 65 y/o male presents to f/u diabetes. Last A1c 06/06/25 9.1%. Had increased his Trulicity. A1c today 09/11/25 9.5%. Pt notes he has not received the new dose of Trulicity yet. He continues taking the rest of his meds as prescribed. Complaints of ?carpal tunnel. Has not seen a specialist or taken any meds for this yet. Mildly positive phalens test. [facility] Medical History (Updated 09/11/25 @ 10:31 by Christian Ac MD) Depression with anxiety Diabetes Hypercholesteremia COPD (chronic obstructive pulmonary disease) Nicotine dependence, cigarettes, uncomplicated Imbalance Neuropathy Acid reflux Surgical History (Updated 01/04/25 @ 09:07 by Iesha Colby PA-C) No pertinent past surgical history Family History Mother Diabetes Cancer of kidney Father Diabetes Cardiovascular disease Social History (Updated 06/06/25 @ 09:53 by Aaliyah Lowery MA) Housing: Other Alcohol intake: current Patient Tobacco Use Status: Current everyday Tobacco user Cigarette Packs Per Day: 1 Years Smoked: (onset 18yo, 1ppd x 46yrs, 45pyh) e-Cigarette/Vaping Use: Never Used Second Hand Smoke Exposure: No Substance Use Type: Marijuana service: Yes Current occupational status: disabled Current occupational exposures/hazards: No Cognitive needs: No Hearing needs: No Vision needs: Yes (glasses for close up) Questionnaire Thrive Questionnaire Date Thrive assessed: 12/14/24 I am a: Patient What is your living situation today?: I have a steady place to live Within the past 12 months, did the food you bought not last and you didn't have the money to get more?: Sometimes True Within the past 12 months, did you worry whether your food would run out before you got money to buy more?: Sometimes True Do you have trouble paying for medicines?: No Do you have trouble getting transportation to medical appointments?: Yes Do you have trouble paying your heating and electricity bill?: Yes Do you have trouble taking care of your child, family member or friend?: I choose not to answer this question Do you have trouble with day-to-day activities such as bathing, preparing meals, shopping, managing finances, etc.?: Yes Are you currently unemployed and looking for a job?: No Are you interested in more education?: No Please select the resources that you would like help with: Utilities Currently or been in a relationship where the following occur: I choose not to answer THRIVE Score: 4 OKSANA-7 AMB Questionnaire OKSANA-7 Date OKSANA - 7 assessed: 11/14/24 Source: Developed by Drs. Jose Story, Allison Mejia, Antoine Ray and colleagues, with an educational franca from [employer] Review of Systems Const Denies chills, Denies fatigue, Denies fever(s), Denies headache(s) and Denies weakness ENT Denies dizziness and Denies headache(s) Card Denies dyspnea Resp Denies cough, Denies dyspnea, Denies wheezing and Denies other (shortness of breath) Musc Denies numbness and Denies tingling Neuro Denies dizziness, Denies headache(s), Denies numbness, Denies tingling and Denies weakness Psych Denies anxiety and Denies depression Endo Denies fatigue Aller/Immun Denies wheezing Physical exam (Primary Care) Vital Signs: Last Vital Signs Temp 97.6 F 09/11/25 09:30 Pulse 69 09/11/25 09:30 Resp 16 09/11/25 09:30 BP 100/60 09/11/25 09:30 Pulse Ox 100 09/11/25 09:30 Oxygen Delivery Method Room Air 09/11/25 09:30 BMI result Body Mass Index 25.1 Tobacco/Smoking Status: Tobacco use Status Tobacco use date assessed 06/06/25 09/11/25 09:33 Patient Tobacco Use Status Current everyday Tobacco 09/11/25 09:33 e-Cigarette/Vaping Use Never Used 09/11/25 09:33 Thrive Assessment: Date of Thrive Assessment Date Thrive assessed 12/14/24 09/11/25 09:33 Currently or been in a relationship where the following occur: I choose not to answer Const General: well developed; No acute distress Nutritional Appearance: well nourished Orientation/consciousness: [facility]: Yes normocephalic and Yes atraumatic Eyes General: appearance normal, both eyes and all related structures Pupils: Equal, round and reactive pupils present EOM: EOMs intact bilaterally Resp Effort & Inspection: normal respiratory effort Neuro General: patient oriented x3 and gait normal Cranial nerves: Yes Equal, round and reactive pupils present Psych Affect: normal affect Coding Level of Care Code Est Pt Level 4 (79600) Diagnoses Diabetes E11.9 Acid reflux K21.9 Carpal tunnel syndrome G56.00 Assessment & Plan Assessment & Plan (1) Diabetes: Code(s): E11.9 - Type 2 diabetes mellitus without complications Category: Medical Plan: A1c continues to rise and now at 9.5%. Patient notes that although we had sent a script for increasing Trulicity, he has not picked that up yet. Morning blood sugars are over 200 Taking Lantus metformin as prescribed. 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 at increased dose Continue metformin as prescribed (2) Acid reflux: Code(s): K21.9 - Gastro-esophageal reflux disease without esophagitis Category: Medical Plan: Sent a script for omeprazole Advised lifestyle changes (3) Carpal tunnel syndrome: Code(s): G56.00 - Carpal tunnel syndrome, unspecified upper limb Category: Medical Plan: Pain and numbness and tingling at left hand and wrist Patient acknowledges pain and tingling worsened with Phalen test Will give him a wrist brace for at night Referred to Ortho/Hand surgery Orders: Referrals Hand Surgery Referral M79.642 - Pain in left hand, R20.0 - Anesthesia of skin Endocrinology Referral E11.65 - Type 2 diabetes mellitus with hyperglycemia Medications: New omeprazole 20 mg PO DAILY 30 caps 3RF 30 days Changed From insulin glargine (Lantus Solostar U-100 Insulin) 16 units (0.16 mL) subcut DAILY 30 days 6 mL 3RF To insulin glargine (Lantus Solostar U-100 Insulin) 18 units (0.18 mL) subcut DAILY 6 mL 3RF 30 days Refilled dulaglutide 1.5 mg (0.5 mL) subcut QWEEK 2 mL 3RF 28 days
[2025-09-11 09:30] VITALS: BP 100/60; PULSE 69; RESP 16; TEMP 36.4; O2SAT 100; BMI 25.1
== END 2025-09-11 10:35 | disposition home or self-care (01) ==
LOC: HO.HMCFM 08:52
PROVIDERS: PCP Family Medicine; Visit Provider Family Medicine
DX: E11.9 Type 2 diabetes mellitus without complications (principal); K21.9 Gastro-esophageal reflux disease without esophagitis; G56.00 Carpal tunnel syndrome, unspecified upper limb; E11.65 Type 2 diabetes mellitus with hyperglycemia

== ENCOUNTER → 2025-09-11 08:51 | Outpatient (BNVA) | payer OTHER, SELFPAY | PROVIDERS: PCP Family Medicine; Visit Provider Family Medicine | DX: E11.65 Type 2 diabetes mellitus with hyperglycemia (principal); K21.9 Gastro-esophageal reflux disease without esophagitis; G56.00 Carpal tunnel syndrome, unspecified upper limb; M79.642 Pain in left hand; R20.0 Anesthesia of skin | CPT/HCPCS: 83036; 99212 ==